=== PATIENT | female | born 1950 | race Caucasian/White ===

== ENCOUNTER 2021-10-28 14:02 | Outpatient (REF) | payer OTHER, SELFPAY ==
[2021-10-28 14:57] LABS: Ammonia 18 umol/L (13-55)
[2021-10-28 16:09] LABS: Hematocrit 36.3 % (37.0-47.0); Hemoglobin 11.4 g/dl (12.0-16.0); Mean Corpuscular HGB Conc 31.4 g/dl (31.0-35.0); Mean Corpuscular Hemoglobin 25.2 pg (27.0-33.0); Mean Corpuscular Volume 80.3 fL (80.0-98.0); Mean Platelet Volume 11.5 fL (9.4-12.3); PLT CLUMP 1; Red Blood Count 4.52 X10*6/uL (4.20-5.50); Red Cell Distribution Width 14.5 % (11.0-16.0)
[2021-10-28 16:11] LABS: Platelet Count 109 X10*3/uL (160-400); White Blood Count 4.5 X10*3/uL (4.8-10.8)
[2021-10-28 16:24] LABS: Iron 46 mcg/dL (30-160)
[2021-10-28 16:25] LABS: C Reactive Protein 0.04 mg/dL (< or = 0.50)
[2021-10-28 16:40] LABS: Percent Iron Saturation 8 % (15-50); Total Iron Binding Capacity 575 mcg/dL (228-428); Unsaturated Iron Binding 529 ug/dL
[2021-10-28 16:43] LABS: Ferritin 19 ng/mL (10-250)
[2021-10-28 16:52] LABS: Folate 18.7 ng/mL (> or = 4.0)
[2021-10-29 07:13] LABS: HBS Num1 4.68 mIU/mL (0-7.99); HBsAGNum1 0.25 S/CO (0.00-0.99); HIV AB/AG Nonreactive (Nonreactive); HIV Num 1 0.11 S/CO (0.00-0.99); Hepatitis B Surface Antigen Negative (Negative); ~Hepatitis B Surface Antibody NONREACTIVE (Nonreactive)
[2021-10-29 08:57] LABS: HBc Num2 7.37 S/CO; HBc Num3 6.99 S/CO; Hepatitis B Core Antibody Reactive (Nonreactive)
[2021-10-29 19:10] LABS: HCV RNA PCR Qn 2240000 IU/mL (NOT DETECTED); HCV RNA PCR Qn 6.35 Log IU/mL (NOT DETECTED)
[2021-10-30 14:31] LABS: Alpha 1 Anti-trypsin 191 mg/dL (83-199)
[2021-10-31 01:21] LABS: Hepatitis B Core Antibody IgM NON-REACTIVE (NON-REACTIVE)
[2021-11-03 00:47] LABS: FIB-ALT 84 U/L (6-29); FIB-Alpha-2-Macroglobulin 415 mg/dL (106-279); FIB-Apolipoprotein A1 172 mg/dL (101-198); FIB-GGT 76 U/L (3-65); FIB-Haptoglobin <8 mg/dL (43-212); FIB-Total Bilirubin 0.6 mg/dL (0.2-1.2); Liver Fibrosis Score 0.91; Liver Fibrosis Stage F4; Nec Inflam Act Grade A3; Nec Inflam Act Score 0.71
[2021-11-03 13:55] LABS: Alpha Fetoprotein 18.1 ng/mL
== END 2021-10-28 14:03 | disposition home or self-care (01) ==
LOC: HO.LAB 14:02
PROVIDERS: PCP Internal Medicine; Visit Provider Internal Medicine Gastroenterology
DX: B18.2 Chronic viral hepatitis C (principal); K74.60 Unspecified cirrhosis of liver; Z79.899 Other long term (current) drug therapy
CPT/HCPCS: 36415; 81596; 82103; 82105; 82140; 82728; 82746; 83540; 85027; 86140; 86704; 86705; 86706; 87340; 87389; 87522; 87902; 99212

== ENCOUNTER → 2021-12-09 13:37 | Outpatient (BNVA) | payer OTHER, SELFPAY | PROVIDERS: PCP Internal Medicine; Visit Provider Internal Medicine Gastroenterology | DX: B18.2 Chronic viral hepatitis C (principal); K74.60 Unspecified cirrhosis of liver | CPT/HCPCS: 99212 ==

== ENCOUNTER 2022-01-19 08:46 | Outpatient (REF) | payer OTHER, SELFPAY ==
--- NOTE | ~2022-01-19 | US_ITS ---
EXAMINATION: US ABDOMEN COMPLETE CLINICAL INFORMATION: Chronic viral hepatitis. COMPARISON: None TECHNIQUE: Real-time imaging of the abdominal viscera. FINDINGS: PANCREAS: The pancreas is prominent and echogenic. The peripancreatic fat borders are maintained. There is peripancreatic/aortic lymph node measuring 2.1 x 0.9 x 2.3 cm. ABDOMINAL AORTA: The proximal, mid, and distal segments are normal in caliber. INFERIOR VENA CAVA: Visualized portions are normal. LIVER: The liver is enlarged in size measuring 17.1 cm. The liver contour is lobulated and scalloped. There is increased parenchymal echogenicity with coarse echotexture. There is a focal hyperechoic area in the left hepatic lobe measuring 0.34 x 0.3 x 0.3 cm. Normal hepatopedal flow seen in the middle portal vein on Doppler exam. GALLBLADDER: There is moderate focal wall thickening measuring 0.85 cm The gallbladder is physiologically distended without evidence of stones, sludge, polyps or pericholecystic fluid. COMMON BILE DUCT: Normal in caliber measuring 0.50 cm in diameter. RIGHT KIDNEY: Normal. No hydronephrosis. No renal calculi or focal parenchymal lesions. The kidney measures 9.3 cm in maximum dimension. LEFT KIDNEY: Normal. No hydronephrosis. No renal calculi or focal parenchymal lesions. The kidney measures 10.9 cm in maximum dimension. SPLEEN: The spleen measures 13.1 cm in maximum dimension. There is echogenic appearing splenule with trace surrounding free fluid measuring 1.6 x 1.3 x 2.0 cm. FREE FLUID: Free fluid surrounding spleen. US/US abdomen complete IMPRESSION: Cirrhotic appearing liver with a hyperechoic lesion left hepatic lobe likely hemangioma versus focal fatty infiltration. Prominent middle portal vein but no thrombus seen. Enlarged spleen with a probable small splenule and trace free fluid surrounding the spleen. No gallstones but moderate focal wall thickening seen measuring 0.85 cm.
== END 2022-01-19 08:47 | disposition home or self-care (01) ==
LOC: HO.HMGCX 08:46
PROVIDERS: PCP Internal Medicine; Visit Provider Internal Medicine Gastroenterology
DX: K74.60 Unspecified cirrhosis of liver (principal); B18.2 Chronic viral hepatitis C
CPT/HCPCS: 76700

== ENCOUNTER 2022-01-21 08:28 | Outpatient (REF) | payer OTHER, SELFPAY ==
[2022-01-21 08:48] LABS: MANUAL DIFF FLAG NO
[2022-01-21 08:56] LABS: Ammonia 32 umol/L (13-55)
[2022-01-21 09:13] LABS: Basophils Percent Auto 0.6 % (0-2); Eosinophils Absolute Auto 0.3 X10*3/uL (0.0-0.4); Eosinophils Percent Auto 5.4 % (0-4); Hemoglobin 8.3 g/dl (12.0-16.0); Imm Gran Abs Auto 0.01 X10*3/uL (0.00-0.03); Imm Gran Pct Auto 0.2 % (0.0-0.4); Lymphocytes Absolute Auto 1.3 X10*3/uL (1.2-4.9); Lymphocytes Percent Auto 24.2 % (20-40); Mean Corpuscular HGB Conc 29.6 g/dl (31.0-35.0); Mean Corpuscular Hemoglobin 21.3 pg (27.0-33.0); Mean Corpuscular Volume 71.8 fL (80.0-98.0); Mean Platelet Volume 10.6 fL (9.4-12.3); Monocytes Absolute Auto 0.6 X10*3/uL (0.1-1.2); Monocytes Percent Auto 11.6 % (2-11); Neutrophils Absolute Auto 3.1 x10*3/uL (2.0-8.3); Platelet Count 144 X10*3/uL (160-400); Red Cell Distribution Width 16.3 % (11.0-16.0); White Blood Count 5.3 X10*3/uL (4.8-10.8)
[2022-01-21 09:26] LABS: INTERNATIONAL NORM RATIO 1.1 (0.9-1.1); Prothrombin Time 12.4 SEC (10.0-13.1)
[2022-01-21 09:46] LABS: Alanine Aminotransferase 65 U/L (0-31); Albumin Level 3.7 g/dL (3.5-5.0); Alkaline Phosphatase 67 U/L (39-117); Aspartate Amino Transferase 49 U/L (5-31); Bilirubin Direct 0.3 mg/dL (0.0-0.5); Bilirubin Total 0.5 mg/dL (0.0-1.0); Total Protein 7.4 g/dL (6.5-8.0)
[2022-01-21 10:09] LABS: Ferritin 9 ng/mL (10-250)
[2022-01-25 19:08] LABS: Hepatitis B Viral DNA Qn - cp <1.00 NOT DETECTED Log IU/mL (NOT DETECTED); Hepatitis B Viral DNA Qn-IU/mL <10 NOT DETECTED IU/mL (NOT DETECTED)
== END 2022-01-21 08:29 | disposition home or self-care (01) ==
LOC: HO.LAB 08:28
PROVIDERS: PCP Internal Medicine; Visit Provider Internal Medicine Gastroenterology
DX: K74.60 Unspecified cirrhosis of liver (principal); B18.2 Chronic viral hepatitis C
CPT/HCPCS: 36415; 80076; 82140; 82728; 85025; 85610; 87517; 99212

== ENCOUNTER → 2022-05-19 10:09 | Outpatient (BNVA) | payer OTHER, SELFPAY | PROVIDERS: PCP Internal Medicine; Visit Provider Internal Medicine Gastroenterology | DX: K74.60 Unspecified cirrhosis of liver (principal); B18.2 Chronic viral hepatitis C; D50.9 Iron deficiency anemia, unspecified | CPT/HCPCS: 99212 ==

== ENCOUNTER 2022-06-09 11:36 | Day surgery (SDC) | payer OTHER, SELFPAY ==
[2022-06-07 14:21] VITALS: BMI 30.7
[2022-06-09 11:54] VITALS: BP 170/84; PULSE 89; RESP 16; TEMP 36.8; O2SAT 99; BMI 30.2
--- NOTE | 2022-06-09 12:19 | P.CONAN_ITS ---
[facility] Active Problems Active Problems: All Active Problems (Updated 06/07/22 @ 14:19 by Isadora Anaya RN) Hepatitis C, chronic (Acute) Hypertension (Acute) Anxiety disorder (Acute) Hepatic cirrhosis due to chronic hepatitis C infection (Acute) Iron deficiency anemia (Acute) Past Medical History Medical History Anemia Anxiety Hepatitis C HTN (hypertension) Liver cirrhosis Family History Family History Father Diabetes Paternal Grandmother Diabetes Mother Alzheimer disease Surgical History Surgical History History of esophagogastroduodenoscopy (EGD) Hx of cataract surgery Hx of colonoscopy History of Problems with Anesthesia: No Social History Social History Household Members: None Alcohol intake: never Patient Tobacco Use Status: Current everyday Tobacco user Tobacco use type: Cigarette Cigarettes Per Day: 3 Advance Directives: No Advance Directives Information Provided: Yes Meds Allergies Allergy/AdvReac Type Severity Reaction Status Date / Time No Known Allergies Allergy Verified 05/19/22 10:18 Home Medications Medication Instructions Recorded Confirmed Last Taken Type folic acid 1 mg tablet 1 mg PO DAILY 10/28/21 06/07/22 Unknown History pantoprazole 40 mg tablet,delayed 40 mg PO DAILY 10/28/21 06/07/22 Unknown History release (Protonix) carvedilol 3.125 mg tablet 3.125 mg PO BID 12/09/21 06/07/22 Unknown History lisinopril 20 mg tablet 20 mg PO DAILY 12/09/21 05/19/22 Unknown History Exam Exam Date and Time: June 09, 2022 1219 Height,Weight and Vital Signs: Height 5 ft 2 in Weight 74.843 kg Last Vital Signs Temp 98.2 F 06/09/22 11:54 Pulse 89 06/09/22 11:54 Resp 16 06/09/22 11:54 BP 170/84 H 06/09/22 11:54 Pulse Ox 99 06/09/22 11:54 O2 Del Method 06/09/22 11:54 Airway Mallampati Class: III (Edentulous) TM Dist: >3cm Denture: Upper Partial: Lower Loose/Missing/Broken Teeth: Yes, Upper and Lower Heart: RRR Lungs: CTA Assessment and Plan Assessment Anesthesia Assessment: Anesthesia Plan Discussed and Chart Reviewed Final Anesthetic Review History of Problems with Anesthesia: No NPO: Yes ASA Class: III Final Preanesthetic Review: Meds/Allgs Chart Reviewed, Consent Obtained/Reviewed and Anes Risks/Benef Reviewed Patient Risk: Intermediate Procedure Risk: Intermediate Anesthetic Plan Anesthetic Plan: MAC: Disposition: Standard PACU
--- NOTE | 2022-06-09 12:38 | P.HPSUR_ITS ---
Pre-Procedural Eval Section A Date of Service: 06/09/22 Section B Chief Complaint: Iron deficiency anemia, unspecified Relevant Family History (Specify if Yes): No Relevant Social History: None Present Medications: see Short Stay Collaborative assessment Medical History: Significant History (chronic hepatitis C infection, Hypertension, anxiety disorder, PVD, history of stomach ulcers) History of Previous Operations: Relevant previous surgery/procedure and date(s) (cataracts and colonosocopy) Allergies: Allergies Allergy/AdvReac Type Severity Reaction Status Date / Time No Known Allergies Allergy Verified 05/19/22 10:18 Review of Systems Sugical H&P ROS: Negative: Constitution, Cardiovascular, Respiratory, Neurological, Psychiatric, Hem-Onc, Allergic/Immunologic, Gastrointestinal, Genitourinary, Musculoskeletal, Integumentary, Endocrine and Eyes/Ea rs/Nose/Throat Exam Surgical H&P Exam: Normal: HEENT, Normal: Heart, Normal: Lungs, Normal: Extremities, Normal: Abdomen, Normal: Skin and Normal: Neurological Plan Diagnosis/Plan: Unchanged I have reviewed the history and physical and performed a pertinent physical examination on my patient. No changes have occurred unless specified. Time Spent With Patient Time: Total time managing care of this patient today ____ minutes.
--- NOTE | 2022-06-09 13:26 | W.PM.OPN ---
Operative Note Operative Note Date of Service: 06/09/22 Narrative: Procedure Description: EGD Indication: anemia, cirrhosis Anesthesia: MAC FLEXIBLE TRANSORAL UPPER GASTROINTESTINAL ENDOSCOPY UPPER ENDOSCOPY Consent: Indications for the procedure and potential complications of bleeding, perforation, reaction to medications and missed diagnosis were discussed with the patient and informed consent was obtained. Instrument: Olympus GIF H 190 J mid size upper endoscope Monitoring: Vital signs and clinical assessment, continuous EKG monitoring, Pulse oximetry, Carbon Dioxide monitoring and blood pressure monitoring were done throughout the procedure. Procedure: The patient was placed in the left lateral decubitis position and pre-procedure medications were administered and a bite block was placed. The endoscope was inserted into the mouth and advanced under direct vision to the third part of duodenum. A careful inspection was made as the upper endoscope was withdrawn including a retroflexed examination of the proximal stomach; Findings and interventions are described below. Findings: Larynx:normal Esophagus: GE junction at 38 cm, diaphragm hiatus at 40 cm, with 2 cm sliding hiatal hernia. X1 variceal cord noted grade II with few red gaines, and another cord noted grade I. X3 bands were placed and then hemospray applied thereafter. Stomach: Patchy gastric erythema with erosions in the antrum. Biopsies were obtained. Grade 2 flap valve on retroflexed examination of the cardia. 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 Duodenum: Normal bulb and descending duodenum, bx taken Intervention: Biopsies as noted above, band ligation and hemospray Impression/Findings: hiatal hernia varices gastritis and erosions PLAN: cont with pantoprazole 2 weeks of carafate cont with carvedilol repeat EGD in 4-6 weeks with myself or Dr Marks soft diet today and advance tomorrow
[2022-06-09 13:33] VITALS: BP 94/55; PULSE 86; RESP 20; TEMP 37.1; O2SAT 100
[2022-06-09 13:48] VITALS: BP 94/55; PULSE 88; RESP 18; TEMP 36.8; O2SAT 97
[2022-06-09 14:03] VITALS: BP 139/68; PULSE 84; RESP 16; TEMP 36.4; O2SAT 98
== END 2022-06-09 15:03 | disposition home or self-care (01) ==
PROVIDERS: PCP Internal Medicine; Visit Provider Internal Medicine Gastroenterology
PROC: 0DJ08ZZ Inspection of Upper Intestinal Tract, Via Natural or Artificial Opening Endoscopic (ICD-10-PCS; CPT 43235; principal; 2022-06-09 13:10)
DX: D50.9 Iron deficiency anemia, unspecified (principal); K74.60 Unspecified cirrhosis of liver; B18.2 Chronic viral hepatitis C; K76.6 Portal hypertension; K31.89 Other diseases of stomach and duodenum; I85.00 Esophageal varices without bleeding; K44.9 Diaphragmatic hernia without obstruction or gangrene; K29.50 Unspecified chronic gastritis without bleeding; I10 Essential (primary) hypertension; I73.9 Peripheral vascular disease, unspecified; F41.1 Generalized anxiety disorder; Z79.899 Other long term (current) drug therapy; F17.210 Nicotine dependence, cigarettes, uncomplicated
CPT/HCPCS: 43244; 43239; 88305; 88342

== ENCOUNTER 2022-07-01 09:06 | Outpatient (REF) | payer OTHER, SELFPAY ==
[2022-07-01 10:45] LABS: MANUAL DIFF FLAG NO
[2022-07-01 11:16] LABS: Basophils Absolute Auto 0.1 X10*3/uL (0.0-0.2); Basophils Percent Auto 0.9 % (0-2); Eosinophils Absolute Auto 0.1 X10*3/uL (0.0-0.4); Eosinophils Percent Auto 2.1 % (0-4); Imm Gran Abs Auto 0.02 X10*3/uL (0.00-0.03); Imm Gran Pct Auto 0.3 % (0.0-0.4); Lymphocytes Absolute Auto 1.4 X10*3/uL (1.2-4.9); Mean Corpuscular HGB Conc 26.8 g/dl (31.0-35.0); Mean Corpuscular Hemoglobin 16.5 pg (27.0-33.0); Monocytes Absolute Auto 0.7 X10*3/uL (0.1-1.2); Monocytes Percent Auto 10.6 % (2-11); Neutrophils Absolute Auto 4.2 x10*3/uL (2.0-8.3); Neutrophils Percent Auto 64.1 % (45-73); Platelet Count 166 X10*3/uL (160-400); Red Blood Count 4.06 X10*6/uL (4.20-5.50); Red Cell Distribution Width 19.2 % (11.0-16.0); White Blood Count 6.5 X10*3/uL (4.8-10.8)
[2022-07-01 11:18] LABS: INTERNATIONAL NORM RATIO 1.1 (0.9-1.1); Prothrombin Time 12.8 SEC (10.0-13.1)
[2022-07-01 11:26] LABS: Hemoglobin 6.7 g/dl (12.0-16.0); Mean Corpuscular Volume 61.6 fL (80.0-98.0)
[2022-07-01 12:06] LABS: Alanine Aminotransferase 19 U/L (0-31); Albumin Level 3.7 g/dL (3.5-5.0); Alkaline Phosphatase 77 U/L (39-117); Aspartate Amino Transferase 22 U/L (5-31); Bilirubin Direct 0.5 mg/dL (0.0-0.5); Bilirubin Total 1.2 mg/dL (0.0-1.0); Total Protein 7.5 g/dL (6.5-8.0)
[2022-07-01 12:09] LABS: Ferritin 8 ng/mL (10-250); Vitamin D 25-OH Total 28.2 ng/mL (>30)
[2022-07-04 09:43] LABS: HCV Log PCR 1.26 Log IU/mL (NOT DETECTED); HepC Viral Load 18 IU/mL (NOT DETECTED)
== END 2022-07-01 09:07 | disposition home or self-care (01) ==
LOC: HO.LAB 09:06
PROVIDERS: PCP Internal Medicine; Visit Provider Internal Medicine Gastroenterology
DX: B18.2 Chronic viral hepatitis C (principal); K74.60 Unspecified cirrhosis of liver; D50.9 Iron deficiency anemia, unspecified
CPT/HCPCS: 36415; 80076; 82306; 82728; 85025; 85610; 87522; 99212

== ENCOUNTER 2022-07-04 13:31 | Emergency (ER) | payer OTHER, SELFPAY ==
[2022-07-04] VITALS (10 sets, daily range): BP systolic 135–175; BP diastolic 59–80; PULSE 87–111; RESP 16–20; TEMP 36.6–36.9; O2SAT 99–100; BMI 30.2
--- NOTE | 2022-07-04 13:34 | ED_ITS ---
HPI - General Adult General Chief complaint: Recheck/Abnormal Lab/Rx <SNOW Lopez - Last Filed: 07/04/22 13:37> Stated complaint: low on blood <SNOW Lopez - Last Filed: 07/04/22 13:37> Time Seen by Provider: 07/04/22 13:39 <SNOW Lopez - Last Filed: 07/04/22 13:37> Source: patient <Lilly Mims MD - Last Filed: 07/04/22 22:26> Mode of arrival: ambulatory <Lilly Mims MD - Last Filed: 07/04/22 22:26> Limitations: no limitations <Lilly Mims MD - Last Filed: 07/04/22 22:26> History of Present Illness HPI narrative: Patient comes to the emergency room stating that Dr. Marks from Gastroenterology did some lab work 3 days ago, patient's hemoglobin was 6.7. Patient states that she has history of hepatitis C, gastric ulcers, patient has been having black stools intermittently for a month. Patient complaining of ge neralized fatigue, weakness. Patient states that she has had blood transfusions in the past. Patient denies any abdominal pain, no active rectal bleeding. Also, denies chest pain, shortness of breath, URI or UTI symptoms at this time. <Lilly Mims MD - Last Filed: 07/04/22 22:26> Related Data Home medications: Home Medications Medication Instructions Recorded Confirmed pantoprazole 40 mg tablet,delayed 40 mg PO DAILY 10/28/21 07/01/22 release (Protonix) carvedilol 3.125 mg tablet 3.125 mg PO BID 12/09/21 07/01/22 lisinopril 20 mg tablet 20 mg PO DAILY 12/09/21 07/01/22 Previous Rx's Medication Instructions Recorded glecaprevir 100 mg-pibrentasvir 40 3 tab PO DAILY 4 weeks #84 tabs 05/10/22 mg tablet (Mavyret) sucralfate 100 mg/mL oral 10 ml PO BID #400 mL 06/09/22 suspension (Carafate) folic acid 1 mg tablet 1 mg PO DAILY 60 days #60 tabs 06/16/22 ferrous sulfate 325 mg (65 mg 325 mg PO BID 90 days #180 tabs 07/01/22 iron) tablet <SNOW Lopez - Last Filed: 07/04/22 13:37> Allergies/adverse reactions: Allergies Allergy/AdvReac Type Severity Reaction Status Date / Time No Known Allergies Allergy Verified 07/04/22 13:34 <SNOW Lopez - Last Filed: 07/04/22 13:37> Review of Systems Review of Systems: Constitutional : No Weight loss, No Fever, No Chills, No Night Sweats, complaining of fatigue ENT/Mouth : No Hearing loss, No Ear Pain, No Nasal Congestion, No Sinus Pain, No Hoarseness, No sore throat, No Rhinorrhea, No Swallowing Difficulty Eyes: No Eye Pain, No Swelling, No Redness, No Foreign Body, No Discharge, No Vision Changes Cardiovascular : No Chest Pain, No SOB, No Dyspnea on Exertion, No Orthopnea, No Edema, No Palpitations Respiratory : No Cough, No Sputum, No Wheezing, No Smoke Exposure, No Dyspnea Gastrointestinal : No Nausea, No Vomiting, No Diarrhea, No Constipation, No abdominal Pain, complaining of dark stools for a month Genitourinary : no irregular bleeding, No Dysuria, No Urinary Frequency, No Hematuria, No Urinary Incontinence, No Urgency, No Flank Pain, No Urinary Flow Changes, No Hesitancy Musculoskeletal : No joint pain, No Myalgias, No Joint Swelling Skin : No Skin Lesions, No rash Neuro : No Weakness, No Numbness, No Paresthesias, No Loss of Consciousness, No Dizziness, No Headache Psych : No Anxiety/Panic, No Depression, No SI/HI/AH/VH, No Social Issues, Heme/Lymph: No Bruising, No Bleeding,No Lymphadenopathy Endocrine : No Polyuria, No Polydipsia, No Temperature Intolerance <Lilly Mims MD - Last Filed: 07/04/22 22:26> [facility] Past Medical History Medical History: Medical History Anemia Anxiety Hepatitis C HTN (hypertension) Liver cirrhosis <SNOW Lopez - Last Filed: 07/04/22 13:37> Surgical History: Surgical History History of esophagogastroduodenoscopy (EGD) Hx of cataract surgery Hx of colonoscopy <SNOW Lopez - Last Filed: 07/04/22 13:37> Family History Family History: Family History Father Diabetes Paternal Grandmother Diabetes Mother Alzheimer disease <SNOW Lopez - Last Filed: 07/04/22 13:37> Social History Social History: Social History Household Members: None Alcohol intake: never Patient Tobacco Use Status: Current everyday Tobacco user Tobacco use type: Cigarette Cigarettes Per Day: 3 <SNOW Lopez - Last Filed: 07/04/22 13:37> Physical Exam ED Vital Signs: Vital Signs - 24 hr 07/04/22 13:34 07/04/22 14:50 07/04/22 15:08 Temperature 98 F 98.4 F 98.4 F Pulse Rate 111 H 103 H 90 Respiratory Rate 17 18 18 Blood Pressure 166/73 H 144/61 H 153/72 H Pulse Oximetry 100 99 Oxygen Delivery Method Room Air Room Air 07/04/22 15:27 07/04/22 16:20 07/04/22 16:37 Temperature 98.1 F 98.4 F 98.0 F Pulse Rate 92 87 88 Respiratory Rate 18 18 18 Blood Pressure 140/73 H 142/61 H 135/59 L Pulse Oximetry Oxygen Delivery Method 07/04/22 16:55 07/04/22 16:00 07/04/22 18:20 Temperature 98.1 F 98.3 F 98.5 F Pulse Rate 87 87 93 Respiratory Rate 18 16 18 Blood Pressure 149/67 H 155/78 H 175/80 H Pulse Oximetry 99 Oxygen Delivery Method Room Air 07/04/22 19:49 Temperature Pulse Rate 96 Respiratory Rate 20 Blood Pressure 157/70 H Pulse Oximetry 99 Oxygen Delivery Method Room Air BMI result Body Mass Index 30.2 <SNOW Lopez - Last Filed: 07/04/22 13:37> Vital Signs - 24 hr 07/04/22 13:34 07/04/22 14:50 07/04/22 15:08 Temperature 98 F 98.4 F 98.4 F Pulse Rate 111 H 103 H 90 Respiratory Rate 17 18 18 Blood Pressure 166/73 H 144/61 H 153/72 H Pulse Oximetry 100 99 Oxygen Delivery Method Room Air Room Air 07/04/22 15:27 07/04/22 16:20 07/04/22 16:37 Temperature 98.1 F 98.4 F 98.0 F Pulse Rate 92 87 88 Respiratory Rate 18 18 18 Blood Pressure 140/73 H 142/61 H 135/59 L Pulse Oximetry Oxygen Delivery Method 07/04/22 16:55 07/04/22 16:00 07/04/22 18:20 Temperature 98.1 F 98.3 F 98.5 F Pulse Rate 87 87 93 Respiratory Rate 18 16 18 Blood Pressure 149/67 H 155/78 H 175/80 H Pulse Oximetry 99 Oxygen Delivery Method Room Air 07/04/22 19:49 Temperature Pulse Rate 96 Respiratory Rate 20 Blood Pressure 157/70 H Pulse Oximetry 99 Oxygen Delivery Method Room Air BMI result Body Mass Index 30.2 <Lilly Mims MD - Last Filed: 07/04/22 22:26> Const Other: Appearance: Alert. Oriented X3. No acute distress. Eyes: Pupils equal, round and reactive to light. ENT: Pharynx normal. Neck: Normal inspection. Neck supple. No lymph nodes noted. No crepitus CVS: Normal heart rate and rhythm. Pulses normal. Normal S1 and S2 Respiratory: No respiratory distress. Breath sounds normal. No Wheezing. No rales Abdomen: Soft and nontender. No rigidity. No distention. Skin: Skin warm and dry. Diffusely pale. Normal skin turgor. Extremities: No lower extremity edema. No Lacerations. No Rash Neuro: Oriented X 3. No motor deficit. No sensory deficit. Moving all extremities. No slurred speech. CN 2 through 12 grossly intact Psych: calm, cooperative, normal affect <Lilly Mims MD - Last Filed: 06/16 22:26> Course Course Course Narrative: This is an RME: Additional HPI, ROS, PE not included below will be deferred to primary provider. 72 year old female hx of htn, anemia, cirrhosis secondary to hep c, anxiety presents w/ low on blood , recently had lab work done by Dr. Marks per patient. Was told she had abnormal labs. Complaints of myalgias, shortness of breath, weakness. Physical exam patient appears pale. Saturating 99% on room air and is tachycardic in the 1002-120s Plan- labs, type and screen, obs, PRBC X2 ordered. <SNOW Lopez - Last Filed: 07/04/22 13:37> Medications Administered Discontinued Medications Generic Name Dose Route Start Last Admin Trade Name Freq PRN Reason Stop Dose Admin Pantoprazole Sodium 80 mg 07/04/22 15:09 07/04/22 16:21 Pantoprazole Sodium 40 Mg/10 Ml Vial IVPUSH 07/04/22 15:10 80 mg ONCE ONE Administration <SNOW Lopez - Last Filed: 07/04/22 13:37> Medications Administered Discontinued Medications Generic Name Dose Route Start Last Admin Trade Name Freq PRN Reason Stop Dose Admin Pantoprazole Sodium 80 mg 07/04/22 15:09 07/04/22 16:21 Pantoprazole Sodium 40 Mg/10 Ml Vial IVPUSH 07/04/22 15:10 80 mg ONCE ONE Administration <Lilly Mims MD - Last Filed: 07/04/22 22:26> Medical Decision Making Medical Decision Making MDM Narrative: -patient is receiving 2 units of blood, patient does have an occult GI bleed -I discussed the patient with Dr Biggs , pt getting transfused at this time. Reviewing Dr. Marks's the patient notes from Gastroenterology, patient has an outpatient endoscopy pending. At this time, no need for hospitalization -plan: Patient will be transfused, recheck H&H, and likely to be discharged home if patient remains stable. Patient is not actively bleeding. -patient received 2 units of blood, hemoglobin improved from 6.9-9.0 and hematocrit improved from 26.3-31.7. Patient states that she feels much better and is ready to be discharged. -patient already has follow-up scheduled with Gastroenterology for endoscopies <Lilly Mims MD - Last Filed: 07/04/22 22:26> Differential Diagnosis Differential Diagnoses: The differential diagnosis associated with the presentation includes (Upper GI bleed, lower GI bleed, iron deficiency anemia) <Lilly Mims MD - Last Filed: 07/04/22 22:26> Consult Healthcare Provider Management of the patient was discussed with: Hospitalist <Lilly Mims MD - Last Filed: 07/04/22 22:26> Lab Data [facility] Lab Attestation statement: I reviewed the patient's lab results. <Lilly Mims MD - Last Filed: 07/04/22 22:26> Result Diagrams: 07/04/22 13:43 07/04/22 13:43 <SNOW Lopez - Last Filed: 07/04/22 13:37> Labs: Lab Results 07/04/22 07/04/22 07/04/22 Range/Units 13:43 13:43 13:43 WBC 6.0 (4.8-10.8) X10*3/uL RBC 4.19 L (4.20-5.50) X10*6/uL Hgb 6.9 L* (12.0-16.0) g/dl Hct 26.3 L (37.0-47.0) % MCV 62.8 L (80.0-98.0) fL MCH 16.5 L (27.0-33.0) pg MCHC 26.2 L (31.0-35.0) g/dl RDW 19.2 H (11.0-16.0) % Plt Count 164 (160-400) X10*3/uL MPV Not Reportable Immature Gran % (Auto) 0.2 (0.0-0.4) % Neut % (Auto) 67.8 (45-73) % Lymph % (Auto) 19.0 L (20-40) % Marshall % (Auto) 10.4 (2-11) % Eos % (Auto) 1.8 (0-4) % Baso % (Auto) 0.8 (0-2) % Lymph # (Auto) 1.1 L (1.2-4.9) X10*3/uL Marshall # (Auto) 0.6 (0.1-1.2) X10*3/uL Eos # (Auto) 0.1 (0.0-0.4) X10*3/uL Baso # (Auto) 0.1 (0.0-0.2) X10*3/uL Abs Immat Gran (auto) 0.01 (0.00-0.03) X10*3/uL Absolute Neuts (auto) 4.0 (2.0-8.3) x10*3/uL Absolute Nucleated RBC 0.000 (0.0-0.012) X10*3/uL Nucleated RBC % (auto) 0.0 (0.0-0.2) /100WBC Sodium 141 (135-145) mmol/L Potassium 4.3 (3.3-5.1) mmol/L Chloride 107 (96-108) mmol/L Carbon Dioxide 23 (22-29) mmol/L Anion Gap 15 (12-20) BUN 22 H (9-16) mg/dL Creatinine 1.26 (0.5-1.4) mg/dL Estim Creat Clear Calc 38.8 Estimated GFR 42 Random Glucose 140 H (60-115) mg/dL Calcium 9.1 (8.4-10.2) mg/dL Total Bilirubin 1.5 H (0.0-1.0) mg/dL AST 22 (5-31) U/L ALT 18 (0-31) U/L Alkaline Phosphatase 82 (39-117) U/L Total Protein 7.7 (6.5-8.0) g/dL Albumin 3.8 (3.5-5.0) g/dL Stool Occult Blood (NEGATIVE) Blood Type A Negative Antibody Screen NEGATIVE Crossmatch See Detail 07/04/22 07/04/22 Range/Units 14:47 19:44 WBC (4.8-10.8) X10*3/uL RBC (4.20-5.50) X10*6/uL Hgb 9.0 L D (12.0-16.0) g/dl Hct 31.7 L D (37.0-47.0) % MCV (80.0-98.0) fL MCH (27.0-33.0) pg MCHC (31.0-35.0) g/dl RDW (11.0-16.0) % Plt Count (160-400) X10*3/uL MPV Immature Gran % (Auto) (0.0-0.4) % Neut % (Auto) (45-73) % Lymph % (Auto) (20-40) % Marshall % (Auto) (2-11) % Eos % (Auto) (0-4) % Baso % (Auto) (0-2) % Lymph # (Auto) (1.2-4.9) X10*3/uL Marshall # (Auto) (0.1-1.2) X10*3/uL Eos # (Auto) (0.0-0.4) X10*3/uL Baso # (Auto) (0.0-0.2) X10*3/uL Abs Immat Gran (auto) (0.00-0.03) X10*3/uL Absolute Neuts (auto) (2.0-8.3) x10*3/uL Absolute Nucleated RBC (0.0-0.012) X10*3/uL Nucleated RBC % (auto) (0.0-0.2) /100WBC Sodium (135-145) mmol/L Potassium (3.3-5.1) mmol/L Chloride (96-108) mmol/L Carbon Dioxide (22-29) mmol/L Anion Gap (12-20) BUN (9-16) mg/dL Creatinine (0.5-1.4) mg/dL Estim Creat Clear Calc Estimated GFR Random Glucose (60-115) mg/dL Calcium (8.4-10.2) mg/dL Total Bilirubin (0.0-1.0) mg/dL AST (5-31) U/L ALT (0-31) U/L Alkaline Phosphatase (39-117) U/L Total Protein (6.5-8.0) g/dL Albumin (3.5-5.0) g/dL Stool Occult Blood POSITIVE (NEGATIVE) Blood Type Antibody Screen Crossmatch <SNOW Lopez - Last Filed: 07/04/22 13:37> Lab Results 07/04/22 07/04/22 07/04/22 Range/Units 13:43 13:43 13:43 WBC 6.0 (4.8-10.8) X10*3/uL RBC 4.19 L (4.20-5.50) X10*6/uL Hgb 6.9 L* (12.0-16.0) g/dl Hct 26.3 L (37.0-47.0) % MCV 62.8 L (80.0-98.0) fL MCH 16.5 L (27.0-33.0) pg MCHC 26.2 L (31.0-35.0) g/dl RDW 19.2 H (11.0-16.0) % Plt Count 164 (160-400) X10*3/uL MPV Not Reportable Immature Gran % (Auto) 0.2 (0.0-0.4) % Neut % (Auto) 67.8 (45-73) % Lymph % (Auto) 19.0 L (20-40) % Marshall % (Auto) 10.4 (2-11) % Eos % (Auto) 1.8 (0-4) % Baso % (Auto) 0.8 (0-2) % Lymph # (Auto) 1.1 L (1.2-4.9) X10*3/uL Marshall # (Auto) 0.6 (0.1-1.2) X10*3/uL Eos # (Auto) 0.1 (0.0-0.4) X10*3/uL Baso # (Auto) 0.1 (0.0-0.2) X10*3/uL Abs Immat Gran (auto) 0.01 (0.00-0.03) X10*3/uL Absolute Neuts (auto) 4.0 (2.0-8.3) x10*3/uL Absolute Nucleated RBC 0.000 (0.0-0.012) X10*3/uL Nucleated RBC % (auto) 0.0 (0.0-0.2) /100WBC Sodium 141 (135-145) mmol/L Potassium 4.3 (3.3-5.1) mmol/L Chloride 107 (96-108) mmol/L Carbon Dioxide 23 (22-29) mmol/L Anion Gap 15 (12-20) BUN 22 H (9-16) mg/dL Creatinine 1.26 (0.5-1.4) mg/dL Estim Creat Clear Calc 38.8 Estimated GFR 42 Random Glucose 140 H (60-115) mg/dL Calcium 9.1 (8.4-10.2) mg/dL Total Bilirubin 1.5 H (0.0-1.0) mg/dL AST 22 (5-31) U/L ALT 18 (0-31) U/L Alkaline Phosphatase 82 (39-117) U/L Total Protein 7.7 (6.5-8.0) g/dL Albumin 3.8 (3.5-5.0) g/dL Stool Occult Blood (NEGATIVE) Blood Type A Negative Antibody Screen NEGATIVE Crossmatch See Detail 07/04/22 07/04/22 Range/Units 14:47 19:44 WBC (4.8-10.8) X10*3/uL RBC (4.20-5.50) X10*6/uL Hgb 9.0 L D (12.0-16.0) g/dl Hct 31.7 L D (37.0-47.0) % MCV (80.0-98.0) fL MCH (27.0-33.0) pg MCHC (31.0-35.0) g/dl RDW (11.0-16.0) % Plt Count (160-400) X10*3/uL MPV Immature Gran % (Auto) (0.0-0.4) % Neut % (Auto) (45-73) % Lymph % (Auto) (20-40) % Marshall % (Auto) (2-11) % Eos % (Auto) (0-4) % Baso % (Auto) (0-2) % Lymph # (Auto) (1.2-4.9) X10*3/uL Marshall # (Auto) (0.1-1.2) X10*3/uL Eos # (Auto) (0.0-0.4) X10*3/uL Baso # (Auto) (0.0-0.2) X10*3/uL Abs Immat Gran (auto) (0.00-0.03) X10*3/uL Absolute Neuts (auto) (2.0-8.3) x10*3/uL Absolute Nucleated RBC (0.0-0.012) X10*3/uL Nucleated RBC % (auto) (0.0-0.2) /100WBC Sodium (135-145) mmol/L Potassium (3.3-5.1) mmol/L Chloride (96-108) mmol/L Carbon Dioxide (22-29) mmol/L Anion Gap (12-20) BUN (9-16) mg/dL Creatinine (0.5-1.4) mg/dL Estim Creat Clear Calc Estimated GFR Random Glucose (60-115) mg/dL Calcium (8.4-10.2) mg/dL Total Bilirubin (0.0-1.0) mg/dL AST (5-31) U/L ALT (0-31) U/L Alkaline Phosphatase (39-117) U/L Total Protein (6.5-8.0) g/dL Albumin (3.5-5.0) g/dL Stool Occult Blood POSITIVE (NEGATIVE) Blood Type Antibody Screen Crossmatch <Lilly Mims MD - Last Filed: 07/04/22 22:26> Critical Care Time Critical Care Time Critical Care Time: Yes <Lilly Mims MD - Last Filed: 07/04/22 22:26> Total Critical Care Time: 60 <Lilly Mims MD - Last Filed: 07/04/22 22:26> Attestation: I have personally provided critical care time. Time includes review of lab data, radiology results, discussion with consultants, and monitoring for potential decompensation. Intervention performed as documented. <Lilly Mims MD - Last Filed: 07/04/22 22:26> Discharge Plan Discharge Clinical Impression: Acute on chronic anemia <SNOW Lopez - Last Filed: 07/04/22 13:37> Patient Disposition: Home, Self-Care <SNOW Lopez - Last Filed: 07/04/22 13:37> Instructions: Anemia (ED), Blood Transfusion (DC) <SNOW Lopez - Last Filed: 07/04/22 13:37> Prescriptions: No Action Mavyret 100-40 mg tablet 3 tab PO DAILY 28 Days Qty: 84 1RF Rx Instructions: must administer with a meal/food folic acid 1 mg tablet 1 mg PO DAILY 60 Days Qty: 60 3RF sucralfate [Carafate] 100 mg/mL suspension 10 ml PO BID Qty: 400 0RF lisinopril 20 mg tablet 20 mg PO DAILY carvedilol 3.125 mg tablet 3.125 mg PO BID Rx Instructions: must administer with a meal/food ferrous sulfate 325 mg (65 mg iron) tablet 325 mg PO BID 90 Days Qty: 180 1RF pantoprazole [Protonix] 40 mg tablet,delayed release (DR/EC) 40 mg PO DAILY <SNOW Lopez - Last Filed: 07/04/22 13:37> Interventions: ED Discharge Assessment Last Done: 07/04/22 20:45 <SNOW Lopez - Last Filed: 07/04/22 13:37> Discharge Date/Time: 07/04/22 20:54 <SNOW Lopez - Last Filed: 07/04/22 13:37>
--- NOTE | 2022-07-04 13:45 | ECG_ITS ---
Test Reason : weak/anemic Blood Pressure : / mmHG Vent. Rate : 102 BPM Atrial Rate : 102 BPM P-R Int : 128 ms QRS Dur : 086 ms QT Int : 348 ms P-R-T Axes : 056 012 090 degrees QTc Int : 453 ms Sinus tachycardia with Premature supraventricular complexes Minimal voltage criteria for LVH, may be normal variant ( Jaylon product ) Septal infarct , age undetermined Abnormal ECG When compared with ECG of 31-AUG-2006 12:04, Premature supraventricular complexes are now Present Septal infarct is now Present T wave inversion now evident in Lateral leads Referred By: Lilly Mims Electronically Signed By:WILFRID PLATT MD
[2022-07-04 13:52] LABS: MANUAL DIFF FLAG NO
[2022-07-04 13:55] LABS: Basophils Absolute Auto 0.1 X10*3/uL (0.0-0.2); Basophils Percent Auto 0.8 % (0-2); Eosinophils Absolute Auto 0.1 X10*3/uL (0.0-0.4); Eosinophils Percent Auto 1.8 % (0-4); Hematocrit 26.3 % (37.0-47.0); Imm Gran Abs Auto 0.01 X10*3/uL (0.00-0.03); Imm Gran Pct Auto 0.2 % (0.0-0.4); Lymphocytes Absolute Auto 1.1 X10*3/uL (1.2-4.9); Mean Corpuscular HGB Conc 26.2 g/dl (31.0-35.0); Mean Corpuscular Hemoglobin 16.5 pg (27.0-33.0); Monocytes Absolute Auto 0.6 X10*3/uL (0.1-1.2); Monocytes Percent Auto 10.4 % (2-11); Neutrophils Percent Auto 67.8 % (45-73); Platelet Count 164 X10*3/uL (160-400); Red Blood Count 4.19 X10*6/uL (4.20-5.50); Red Cell Distribution Width 19.2 % (11.0-16.0)
[2022-07-04 13:56] LABS: Mean Corpuscular Volume 62.8 fL (80.0-98.0)
[2022-07-04 14:03] LABS: Hemoglobin 6.9 g/dl (12.0-16.0)
[2022-07-04 14:15] LABS: Alanine Aminotransferase 18 U/L (0-31); Albumin Level 3.8 g/dL (3.5-5.0); Alkaline Phosphatase 82 U/L (39-117); Anion Gap 15 (12-20); Aspartate Amino Transferase 22 U/L (5-31); Bilirubin Total 1.5 mg/dL (0.0-1.0); Blood Urea Nitrogen 22 mg/dL (9-16); Calcium 9.1 mg/dL (8.4-10.2); Carbon Dioxide 23 mmol/L (22-29); Chloride 107 mmol/L (96-108); Creatinine Clr Calc Pharmacy 38.8; Estimated Glomerular Filt Rate 42; Glucose Random 140 mg/dL (60-115); Potassium 4.3 mmol/L (3.3-5.1); Sodium 141 mmol/L (135-145); Total Protein 7.7 g/dL (6.5-8.0)
[2022-07-04 14:56] LABS: OBS Int Ctl Valid YES; OBS1 POSITIVE (NEGATIVE)
[2022-07-04] MEDS: Pantoprazole Sodium 40 MG/10 ML VIAL 80 MG IVPUSH (16:21)
--- NOTE | 2022-07-04 18:24 | PC.NURSE ---
Both units of PRBC infused. No s/sx of reaction noted. Patient remains alert and oriented x3. Denies any chest pain or shortness of breath.
[2022-07-04 19:49] LABS: Hematocrit 31.7 % (37.0-47.0)
== END 2022-07-04 20:54 | disposition home or self-care (01) ==
PROVIDERS: Physician Assistant; Emergency Provider Emergency Medicine; PCP Internal Medicine
DX: D64.89 Other specified anemias (principal); R53.83 Other fatigue; K92.1 Melena; K25.9 Gastric ulcer, unspecified as acute or chronic, without hemorrhage or perforation; Z86.19 Personal history of other infectious and parasitic diseases; D50.0 Iron deficiency anemia secondary to blood loss (chronic); I10 Essential (primary) hypertension; K92.2 Gastrointestinal hemorrhage, unspecified
CPT/HCPCS: 36415; 36430; 80053; 82272; 85014; 85018; 85025; 86850; 86900; 86901; 86920; 93005; 96374; 99284; 99285; P9016

== ENCOUNTER 2022-07-25 11:49 | Day surgery (SDC) | payer OTHER, SELFPAY ==
[2022-07-20 15:56] VITALS: BMI 30.2
[2022-07-25 12:29] VITALS: BMI 30.2
[2022-07-25 12:36] VITALS: BP 177/90; PULSE 74; RESP 16; TEMP 36.9; O2SAT 99
[2022-07-25] MEDS: Lactated Ringers 1,000 ML 50 ML IVCONT (12:54)
--- NOTE | 2022-07-25 13:46 | HO.ANESPROP2 ---
[facility] Active Problems Active Problems: All Active Problems (Updated 07/20/22 @ 15:47 by Winsome Ontiveros, RN) Hepatitis C, chronic (Acute) Hypertension (Acute) Anxiety disorder (Acute) Hepatic cirrhosis due to chronic hepatitis C infection (Acute) Iron deficiency anemia (Acute) Encounter for screening colonoscopy (Acute) Past Medical History Medical History (Updated 07/20/22 @ 15:47 by Winsome Ontiveros, RN) Anemia Anxiety Hepatitis C Hiatal hernia HTN (hypertension) Hx of gastritis Liver cirrhosis Family History Family History Father Diabetes Paternal Grandmother Diabetes Mother Alzheimer disease Surgical History Surgical History (Updated 07/20/22 @ 15:47 by Winsome Ontiveros RN) History of esophagogastroduodenoscopy (EGD) Hx of cataract surgery Hx of colonoscopy History of Problems with Anesthesia: No Social History Social History Household Members: None Alcohol intake: never Patient Tobacco Use Status: Current someday Tobacco user Tobacco use type: Cigarette Cigarettes Per Day: 2 Use of substances other than those prescribed or required for medical reasons: No Are you DNR?: No Advance Directives: No Advance Directives Information Provided: Yes Meds Allergies Allergy/AdvReac Type Severity Reaction Status Date / Time No Known Allergies Allergy Verified 07/20/22 15:49 Active Medications: Current Medications Lactated Ringer's (Lr) 1,000 mls @ 50 mls/hr IVCONT .Q20H LOYD Home Medications Medication Instructions Recorded Confirmed Last Taken Type pantoprazole 40 mg tablet,delayed 40 mg PO DAILY 10/28/21 07/20/22 Unknown History release (Protonix) carvedilol 3.125 mg tablet 3.125 mg PO BID 12/09/21 07/20/22 Unknown History lisinopril 20 mg tablet 20 mg PO DAILY 12/09/21 07/20/22 Unknown History Exam Exam Date and Time: July 25, 2022 1346 Height,Weight and Vital Signs: Height 5 ft 2 in Weight 74.843 kg Last Vital Signs Temp 98.5 F 07/25/22 12:36 Pulse 74 07/25/22 12:36 Resp 16 07/25/22 12:36 BP 177/90 H 07/25/22 12:36 Pulse Ox 99 07/25/22 12:36 O2 Del Method Room Air 07/25/22 12:36 Airway Mallampati Class: II TM Dist: >3cm Neck ROM: Full Denture: Upper Partial: Lower Heart: rrr Lungs: cta Assessment and Plan Assessment Anesthesia Assessment: Anesthesia Plan Discussed and Chart Reviewed Final Anesthetic Review History of Problems with Anesthesia: No NPO: Yes ASA Class: III Final Preanesthetic Review: No Changes in Pt Med Stat, Meds/Allgs Chart Reviewed and Consent Obtained/Reviewed Patient Risk: Intermediate Procedure Risk: Intermediate Anesthetic Plan Anesthetic Plan: MAC: Disposition: Standard PACU
--- NOTE | 2022-07-25 13:47 | MHC.SHP ---
Pre-Procedural Eval Section A Date of Service: 07/25/22 The patient is an INPATIENT: No Changes since office visit: Yes Patient answered all questions; No Cold of Flu in the past 2 weeks, No New Medical Problems and No Changes in Medication The History & Physical has been completed within 30 days and I have reviewed it.: Yes Section B Chief Complaint: Iron deficiency anemia, Allergies: Allergies Allergy/AdvReac Type Severity Reaction Status Date / Time No Known Allergies Allergy Verified 07/20/22 15:49 Plan I have reviewed the history and physical and performed a pertinent physical examination on my patient. No changes have occurred unless specified. Time Spent With Patient Time: Total time managing care of this patient today ____ minutes.
--- NOTE | 2022-07-25 13:51 | W.PM.OPN ---
Operative Note Operative Note Date of Service: 07/25/22 Narrative: FLEXIBLE TRANSORAL UPPER GASTROINTESTINAL ENDOSCOPY Pre-op diagnosis: FU of esophageal varices Post-op diagnosis: Small esophageal varices, mild portal hypertensive gastropathy Endoscopist:? Vladimir Marks MD Anesthesia:?MAC Consent: Indications for the procedure and potential complications of bleeding, perforation, reaction to medications and missed diagnosis were discussed with the patient and informed consent was obtained. Instrument: Olympus GIF H 190 mid size upper endoscope Monitoring: Vital signs and clinical assessment, continuous EKG monitoring, Pulse oximetry, Carbon Dioxide monitoring and blood pressure monitoring were done throughout the procedure. Procedure: The patient was placed in the left lateral decubitis position and pre-procedure medications were administered and a bite block was placed. The endoscope was inserted into the mouth and advanced under direct vision to the third part of duodenum. A careful inspection was made as the upper endoscope was withdrawn including a retroflexed examination of the proximal stomach; Findings and interventions are described below. Findings: Larynx: Normal Esophagus: GE junction at 38 cms, small hiatal hernia 38 to 40 cms. No esophagitis or Lemon's. Two columns of grade 1 -2 varices from 30 to 38 cms which flattened on air insufflation Varices were not amenable to band ligation. Stomach: Mild gastric erythema. Biopsies were obtained. Mosaic pattern in the gastric body consistent with mild portal hypertensive gastropathy No gastric varices and grade 2 flap valve on retroflexed examination of the cardia. Duodenum: Normal bulb and descending duodenum Intervention: None Impression and Post Procedure Diagnosis: Endoscopy Findings: ESOPHAGUS: GE junction at 38 cms, small hiatal hernia 38 to 40 cms. No esophagitis or Lemon's. Two columns of grade 1 -2 varices from 30 to 38 cms which flattened on air insufflation And were not amenable to band ligation. STOMACH: mild portal hypertensive gastropathy Plan: Patient was scheduled for same day colonoscopy today. Unfortunately she did not take her prep. Colonoscopy will be rescheduled at a later date. Repeat EGD in 6 months Patient has an appointment on 08/08/22 in the GI Clinic with Vladimir Marks M.D. Above findings were reviewed with the patient and esophageal varices handout was given in the discharge area
[2022-07-25 14:14] VITALS: BP 93/59; PULSE 76; RESP 16; TEMP 36.4; O2SAT 95
[2022-07-25 14:29] VITALS: BP 124/74; PULSE 74; RESP 18; O2SAT 99
== END 2022-07-25 15:06 | disposition home or self-care (01) ==
PROVIDERS: PCP Internal Medicine; Visit Provider Internal Medicine Gastroenterology
PROC: 0DJ08ZZ Inspection of Upper Intestinal Tract, Via Natural or Artificial Opening Endoscopic (ICD-10-PCS; CPT 43235; principal; 2022-07-25 13:00)
DX: I85.00 Esophageal varices without bleeding (principal); K76.6 Portal hypertension; K31.89 Other diseases of stomach and duodenum; K44.9 Diaphragmatic hernia without obstruction or gangrene; D50.9 Iron deficiency anemia, unspecified; I10 Essential (primary) hypertension
CPT/HCPCS: 43235

== ENCOUNTER 2022-08-03 12:46 | Day surgery (SDC) | payer OTHER, SELFPAY ==
[2022-08-03 13:26] VITALS: BMI 29.2
[2022-08-03 13:34] VITALS: BMI 29.2
[2022-08-03 13:35] VITALS: BP 163/76; PULSE 78; RESP 18; TEMP 36.3; O2SAT 99
--- NOTE | 2022-08-03 14:18 | MHC.SHP ---
Pre-Procedural Eval Section A Date of Service: 08/03/22 The patient is an INPATIENT: No The History & Physical has been completed within 30 days and I have reviewed it.: No Section B Chief Complaint: Colon cancer screening, Iron deficiency anemia, Relevant Family History (Specify if Yes): No Relevant Social History: Tobacco Use Present Medications: see Short Stay Collaborative assessment Medical History: Significant History (Anemia Anxiety Hepatitis C HTN (hypertension) Liver cirrhosis) History of Previous Operations: Relevant previous surgery/procedure and date(s) (History of esophagogastroduodenoscopy (EGD) Hx of cataract surgery Hx of colonoscopy) Allergies: Allergies Allergy/AdvReac Type Severity Reaction Status Date / Time No Known Allergies Allergy Verified 07/20/22 15:49 Review of Systems Sugical H&P ROS: Negative: Constitution, Cardiovascular, Respiratory and Gastrointestinal Exam Surgical H&P Exam: Normal: Heart, Normal: Lungs, Normal: Extremities and Normal: Abdomen Plan Diagnosis/Plan: Unchanged I have reviewed the history and physical and performed a pertinent physical examination on my patient. No changes have occurred unless specified. Time Spent With Patient Time: Total time managing care of this patient today ____ minutes.
--- NOTE | 2022-08-03 14:26 | W.PM.OPN ---
Operative Note Operative Note Date of Service: 08/03/22 Narrative: COLONOSCOPY TILL CECUM WITH BIOPSIES AND SNARE POLYPECTOMY Pre-op diagnosis: Colon cancer screening, iron deficiency anemia Post-op diagnosis:? Colon polyp, diverticulosis, hemorrhoids Endoscopist:? Vladimir Marks MD Anesthesia:?MAC Consent: Indications for the procedure and potential complications of bleeding, perforation, reaction to medications and missed diagnosis were discussed with the patient and informed consent was obtained. Instrument: Olympus PCF H 190 L variable stiffness pediatric colonoscope Monitoring: Vital signs and clinical assessment, intermittent blood pressure monitoring, continuous EKG monitoring, Pulse oximetry and Carbon Dioxide monitoring were done throughout the procedure. Please see anesthesia flowsheet. Colon withdrawl time was 20 minutes. Procedure: The patient was placed in the left lateral decubitis position and pre-procedure medications were administered. After a digital rectal examination of the ano-rectum, the video colonoscope was inserted into the rectum and advanced through the colon to the cecum. The colonoscope was slowly withdrawn in a retrograde panoramic fashion and the colon mucosa was carefully examined including a retroflexed view of the rectum. Findings and interventions are described below. Procedure Difficulty: Colon was long and tortuous and there was some loop formation. Findings: Terminal Ileum: Not evaluated Cecum: Normal Ascending Colon: Mild edema of colonic folds in the right colon (likely due to cirrhosis with portal hypertension) - random biopsies were obtained. Moderate diverticulosis Transverse Colon: Moderate diverticulosis Descending Colon: Moderate diverticulosis Sigmoid Colon: A 12-15 mm sessile polyp in the distal sigmoid colon at 20 cm - removed with a hot snare. Moderate diverticulosis Rectum: Moderate non-bleeding rectal varices. Ano-rectum: Moderate internal hemorrhoids Colon preparation: Good Impression and Post Procedure Diagnosis: Colonoscopy Findings: One medium sized polyp removed Mild edema of colonic folds in the right colon (likely due to cirrhosis with portal hypertension) - random biopsies were obtained. Moderate diverticulosis seen in the entire colon Moderate rectal varices and hemorrhoids on retroflexed exam. Plan: Await pathology results Patient has an appointment on 08/08/22 in the GI Clinic with Vladimir Marks M.D. Repeat Colonoscopy interval based on path results - in 3 years if polyps are adenomatous and 10 years if polyps are hyperplastic. Above findings were reviewed with the patient and colon polyps and diverticulosis handouts were given in the discharge area
[2022-08-03] MEDS: Lactated Ringers 1,000 ML 100 ML IVCONT (14:31)
--- NOTE | 2022-08-03 14:50 | HO.ANESPROP2 ---
HPI - Anesthesia Eval Consult details Narrative: screening anemia PMFSH Active Problems Active Problems: All Active Problems (Updated 07/20/22 @ 15:47 by Winsome Ontiveros RN) Hepatitis C, chronic (Acute) Hypertension (Acute) Anxiety disorder (Acute) Hepatic cirrhosis due to chronic hepatitis C infection (Acute) Iron deficiency anemia (Acute) Encounter for screening colonoscopy (Acute) Past Medical History Medical History Anemia Anxiety Hepatitis C Hiatal hernia HTN (hypertension) Hx of gastritis Liver cirrhosis Family History Family History Father Diabetes Paternal Grandmother Diabetes Mother Alzheimer disease Family history of problems with anesthesia: No Surgical History Surgical History History of esophagogastroduodenoscopy (EGD) Hx of cataract surgery Hx of colonoscopy History of Problems with Anesthesia: No Social History Social History Household Members: None Alcohol intake: never Patient Tobacco Use Status: Current everyday Tobacco user Tobacco use type: Cigarette Cigarettes Per Day: 2 Use of substances other than those prescribed or required for medical reasons: No Are you DNR?: No Advance Directives: No Advance Directives Information Provided: Yes Meds Allergies Allergy/AdvReac Type Severity Reaction Status Date / Time No Known Allergies Allergy Verified 07/20/22 15:49 Active Medications: Current Medications Lactated Ringer's (Lr) 1,000 mls @ 100 mls/hr IVCONT .Q10H LOYD Last Admin: 08/03/22 14:31 Dose: 100 mls/hr Home Medications Medication Instructions Recorded Confirmed Last Taken Type pantoprazole 40 mg tablet,delayed 40 mg PO DAILY 10/28/21 07/20/22 Unknown History release (Protonix) carvedilol 3.125 mg tablet 3.125 mg PO BID 12/09/21 07/20/22 Unknown History lisinopril 20 mg tablet 20 mg PO DAILY 12/09/21 07/20/22 Unknown History Exam Exam Date and Time: August 03, 2022 1450 Height,Weight and Vital Signs: Height 5 ft 2 in Weight 72.575 kg Last Vital Signs Temp 97.4 F 08/03/22 13:35 Pulse 78 08/03/22 13:35 Resp 18 08/03/22 13:35 BP 163/76 H 08/03/22 13:35 Pulse Ox 99 08/03/22 13:35 O2 Del Method Room Air 08/03/22 13:35 Airway Mallampati Class: II TM Dist: >3cm Neck ROM: Full Heart: rr Lungs: cta Assessment and Plan Assessment Anesthesia Assessment: Anesthesia Plan Discussed and Chart Reviewed Final Anesthetic Review Family History of Problems with Anesthesia: No History of Problems with Anesthesia: No NPO: Yes ASA Class: III Final Preanesthetic Review: No Changes in Pt Med Stat, Meds/Allgs Chart Reviewed, Consent Obtained/Reviewed and Anes Risks/Benef Reviewed Anesthetic Plan Anesthetic Plan: MAC: Disposition: Standard PACU
[2022-08-03 15:20] VITALS: BP 102/66; PULSE 73; RESP 16; TEMP 36.4; O2SAT 96
[2022-08-03 15:35] VITALS: BP 157/82; PULSE 80; RESP 16; TEMP 36.4; O2SAT 97
== END 2022-08-03 16:21 | disposition home or self-care (01) ==
PROVIDERS: PCP Internal Medicine Gastroenterology; Visit Provider Internal Medicine Gastroenterology
PROC: 0DJD8ZZ Inspection of Lower Intestinal Tract, Via Natural or Artificial Opening Endoscopic (ICD-10-PCS; CPT 45378; principal; 2022-08-03 14:00)
DX: Z12.11 Encounter for screening for malignant neoplasm of colon (principal); D12.5 Benign neoplasm of sigmoid colon; K57.30 Diverticulosis of large intestine without perforation or abscess without bleeding; K64.8 Other hemorrhoids; I86.8 Varicose veins of other specified sites; D50.9 Iron deficiency anemia, unspecified; E61.0 Copper deficiency; I10 Essential (primary) hypertension; K74.60 Unspecified cirrhosis of liver; B19.20 Unspecified viral hepatitis C without hepatic coma; F41.1 Generalized anxiety disorder; Z79.899 Other long term (current) drug therapy; F17.210 Nicotine dependence, cigarettes, uncomplicated
CPT/HCPCS: 45385; 45380; 88305

== ENCOUNTER → 2022-08-08 12:15 | Outpatient (BNVA) | payer OTHER, SELFPAY | PROVIDERS: PCP Internal Medicine; Visit Provider Internal Medicine Gastroenterology | DX: Z12.11 Encounter for screening for malignant neoplasm of colon (principal); B18.2 Chronic viral hepatitis C; D50.9 Iron deficiency anemia, unspecified; Z86.010 Personal history of colon polyps | CPT/HCPCS: 99212 ==

== ENCOUNTER 2022-08-23 11:06 | Outpatient (REF) | payer OTHER, SELFPAY ==
--- NOTE | ~2022-08-23 | US_ITS ---
EXAMINATION: US ABDOMEN LIMITED CLINICAL INFORMATION: Chronic viral hepatitis C, cirrhosis, screening for HCC. COMPARISON: Ultrasound abdomen complete 01/19/2022. MRI abdomen 06/19/2013. TECHNIQUE: Real-time imaging of the right upper quadrant abdominal viscera. FINDINGS: PANCREAS: The head and body the pancreas is normal. The tail is not well visualized due to bowel gas. LIVER: The liver is cirrhotic. There is question of a new hypoechoic lesion in the right lobe of the liver measuring 2.7 x 2.1 x 2.2 cm. The main portal vein is enlarged measuring 1.6 cm. There is thrombus seen in the left portal vein and question extending into some of the main portal vein similar to previous exam. There is no biliary duct dilatation. GALLBLADDER: The gallbladder is normal in size. No gallstones are seen. The gallbladder wall is slightly thickened and edematous measuring 6 mm. This may be related to liver disease. COMMON BILE DUCT: Normal in caliber measuring 0.57 cm in diameter. RIGHT KIDNEY: Small echogenic focus in the upper pole measuring 4 mm questionable for a stone. No hydronephrosis. No renal calculi or focal parenchymal lesions. The kidney measures 9.1 cm in maximum dimension. FREE FLUID: None. US/US abdomen limited IMPRESSION: Cirrhotic liver. Question new hypoechoic lesion right lobe measuring maximum 2.7 cm. Follow-up liver MRI recommended. 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 Findings will be communicated by the [employer] work flow solution professional.
[2022-08-23 14:32] LABS: Hemoglobin 12.4 g/dl (12.0-16.0); Mean Corpuscular Hemoglobin 24.1 pg (27.0-33.0); Mean Corpuscular Volume 77.8 fL (80.0-98.0); Red Blood Count 5.14 X10*6/uL (4.20-5.50); Red Cell Distribution Width 25.2 % (11.0-16.0); White Blood Count 3.6 X10*3/uL (4.8-10.8)
[2022-08-23 15:00] LABS: Alanine Aminotransferase 18 U/L (0-31); Albumin Level 3.9 g/dL (3.5-5.0); Alkaline Phosphatase 65 U/L (39-117); Aspartate Amino Transferase 22 U/L (5-31); Bilirubin Direct 0.4 mg/dL (0.0-0.5); Bilirubin Total 0.9 mg/dL (0.0-1.0); Total Protein 7.3 g/dL (6.5-8.0)
[2022-08-23 15:16] LABS: Ferritin 49 ng/mL (10-250)
[2022-08-23 15:28] LABS: Platelet Count 81 X10*3/uL (160-400)
[2022-08-26 13:49] LABS: HCV Log PCR <1.18 NOT DETECTED Log IU/mL (NOT DETECTED); HepC Viral Load <15 NOT DETECTED IU/mL (NOT DETECTED)
== END 2022-08-23 11:07 | disposition home or self-care (01) ==
LOC: HO.HMGCX 11:06
PROVIDERS: PCP Internal Medicine; Visit Provider Internal Medicine Gastroenterology
DX: D50.9 Iron deficiency anemia, unspecified (principal); K74.60 Unspecified cirrhosis of liver; B18.2 Chronic viral hepatitis C
CPT/HCPCS: 36415; 76705; 80076; 82728; 85027; 87522

== ENCOUNTER 2022-08-23 11:48 | Outpatient (REF) | payer OTHER, SELFPAY | END 2022-08-23 11:49 | disposition home or self-care (01) | LOC: HO.LAB 11:48 | PROVIDERS: Visit Provider Internal Medicine Gastroenterology | DX: Z13.89 Encounter for screening for other disorder (principal) ==

== ENCOUNTER → 2022-10-13 13:32 | Outpatient (BNVA) | payer OTHER, SELFPAY | PROVIDERS: Visit Provider Internal Medicine Gastroenterology | DX: K74.60 Unspecified cirrhosis of liver (principal); B18.2 Chronic viral hepatitis C; D50.9 Iron deficiency anemia, unspecified; Z86.010 Personal history of colon polyps | CPT/HCPCS: 99212 ==

== ENCOUNTER 2022-10-17 08:43 | Outpatient (REF) | payer OTHER, SELFPAY | END 2022-10-17 08:44 | disposition home or self-care (01) | LOC: HO.MRI 08:43 | PROVIDERS: PCP Internal Medicine; Visit Provider Internal Medicine Gastroenterology | DX: K76.9 Liver disease, unspecified (principal) | CPT/HCPCS: 74183; A9585 ==

== ENCOUNTER 2022-11-07 08:50 | Outpatient (REF) | payer OTHER, SELFPAY ==
--- NOTE | ~2022-11-07 | US_ITS ---
EXAMINATION: US ABDOMEN LIMITED CLINICAL INFORMATION: Liver disease with questionable new hypoechoic lesion in the right lobe seen on the previous study. MRI show 1.3 cm lesion in the left lobe, linear lesion in the right lobe.. COMPARISON: MRI from 10/17/2022 and abdominal ultrasound from 08/23/2022 TECHNIQUE: Real-time imaging of the right upper quadrant abdominal viscera. FINDINGS: PANCREAS: Normal. LIVER: The liver is abnormal with coarse echo structure and nodular contour most likely cirrhotic. There is 1.0 x 0.7 x 0.8 cm echogenic lesion in the left lobe of the liver possibly part of fibrosis or hemangioma. The lesion is not vascular. Right lobe revealed hypoechoic 1.5 x 1.5 x 1.4 cm ill-defined focus. There is trace of ascites in the right lobe of the liver. The liver is of normal in size. There is no intrahepatic biliary duct dilatation seen. GALLBLADDER: The gallbladder is physiologically distended without evidence of stones, sludge, polyps,. The gallbladder wall measured 0.3 cm. Trace of fluid since the gallbladder wall. COMMON BILE DUCT: Normal in caliber measuring 0.6 cm in diameter. RIGHT KIDNEY: Normal. No hydronephrosis. No renal calculi or focal parenchymal lesions. The kidney measures 9.1 cm in maximum dimension. There is echogenic focus in the upper pole, without shadowing most likely calcified with FREE FLUID: There is small amount of free fluid in the right lobe of the liver and gallbladder wall US/US abdomen limited IMPRESSION: 1. Abnormal liver with nodular contour and trace of ascites due to cirrhosis. 2. Ill-defined lesion in the right lobe of the liver. 3. Echogenic focus in the right lobe of the liver probably fibrosis or hemangioma. 4. Small amount of free fluid in the right lobe of the liver and gallbladder wall.
[2022-11-07 10:13] LABS: Mean Corpuscular Volume 82.5 fL (80.0-98.0); PLT CLUMP 1; Red Cell Distribution Width 13.2 % (11.0-16.0)
[2022-11-07 10:14] LABS: INTERNATIONAL NORM RATIO 1.1 (0.9-1.1); Prothrombin Time 13.1 SEC (10.0-13.1)
[2022-11-07 10:15] LABS: Hematocrit 44.9 % (37.0-47.0); Hemoglobin 14.6 g/dl (12.0-16.0); Mean Corpuscular HGB Conc 32.5 g/dl (31.0-35.0); Mean Corpuscular Hemoglobin 26.8 pg (27.0-33.0); Mean Platelet Volume 10.1 fL (9.4-12.3); Red Blood Count 5.44 X10*6/uL (4.20-5.50); White Blood Count 4.7 X10*3/uL (4.8-10.8)
[2022-11-07 10:16] LABS: Platelet Count 96 X10*3/uL (160-400)
[2022-11-07 10:46] LABS: Alanine Aminotransferase 21 U/L (0-31); Albumin Level 4.6 g/dL (3.5-5.0); Alkaline Phosphatase 66 U/L (39-117); Aspartate Amino Transferase 24 U/L (5-31); Bilirubin Direct 0.4 mg/dL (0.0-0.5); Bilirubin Total 1.1 mg/dL (0.0-1.0); Estimated Glomerular Filt Rate 55; Total Protein 8.9 g/dL (6.5-8.0)
[2022-11-09 08:43] LABS: Carbohydrate Antigen 19-9 27 U/mL (<34)
[2022-11-09 13:09] LABS: Alpha Fetoprotein 11.2 ng/mL
== END 2022-11-07 08:51 | disposition home or self-care (01) ==
LOC: HO.US 08:50
PROVIDERS: Visit Provider Internal Medicine Gastroenterology
DX: K76.9 Liver disease, unspecified (principal); B18.2 Chronic viral hepatitis C; K74.60 Unspecified cirrhosis of liver
CPT/HCPCS: 36415; 76705; 80076; 82105; 82378; 82565; 85027; 85610; 86301

== ENCOUNTER 2023-03-13 13:50 | Outpatient (REF) | payer OTHER, SELFPAY ==
--- NOTE | ~2023-03-13 | MR_ITS ---
EXAMINATION: MRI ABDOMEN WITH AND WITHOUT CONTRAST CLINICAL INFORMATION: K76.9 - Liver disease, unspecified. Three-month follow-up liver lesions COMPARISON: No pertinent priors currently available. TECHNIQUE: Multiple routine MRI sequences through the abdomen were obtained on a high-field 1.5Tesla MRI. Pre-and postcontrast images with 6.5 mL of Gadavist intravenous contrast were obtained. This included a dynamic contrast-enhanced technique. FINDINGS: Lung bases: The visualized lung bases are unremarkable. Left ventricular apical aneurysm again suggested. This is only partially seen but there does appear to be apical thinning and fullness. Right breast implant only partially seen on the large [id number] coronal localizer but does appear to be asymmetrically smaller than the left. Peritoneal space: Small volume of abdominal ascites is present Liver: Nodular cirrhotic fibrotic liver is again demonstrated a heterogeneous background signal. There are scattered arterial phase enhancing foci which appear to fade to background on later phases of contrast which are nonspecific. Along the posterior inferior aspect of segment 3 of the liver there is a more discrete enhancing 1.6 cm region seen which does not demonstrate significant discrete washout or pseudocapsule formation on later phases. This area of enhancement previously measured up to 1.3 cm on the 10/17/2022 study. Although this does not satisfy OPTN criteria for hepatocellular carcinoma at this time, continued close follow-up of this apparently growing region would be recommended. Gallbladder: Gallbladder is unremarkable. No suspicious gallstones or filling defects. No gallbladder wall thickening or pericholecystic inflammatory changes. Pancreas: Pancreas is homogeneous in signal. No pancreatic ductal dilatation or obstruction. No peripancreatic inflammatory changes or fluid. Spleen: Enlarged measuring 14.1 cm in length. Adrenals: Unremarkable Kidneys: Kidneys are normal in size, shape, and signal. No suspicious renal mass lesion seen. No hydronephrosis or perinephric edema. Other: No bulky adenopathy Vessels: Although not performed as an MR angiogram, the hepatic artery is patent arising from the celiac axis. The visualized superior mesenteric vein, splenic vein, portal veins, and hepatic veins are grossly patent. MR/MR abdomen wo/w con IMPRESSION: Nodular cirrhotic fibrotic liver with sequela of portal hypertension. There is a 1.6 cm region of arterial phase enhancement along the posterior inferior aspect of segment 3 of the liver which had measured 1.3 cm maximally on the previous 10/17/2022 study. With the lack of washout or pseudocapsule formation on the later phases, this does not satisfy OPTN criteria for hepatocellular carcinoma at this time, however continued close follow-up of this apparently growing region would be recommended.
[2023-03-13] MEDS: gadobutroL 7.5 ML VIAL IVPUSH (14:47)
== END 2023-03-13 13:51 | disposition home or self-care (01) ==
LOC: HO.MRI 13:50
PROVIDERS: PCP Internal Medicine; Visit Provider Internal Medicine Gastroenterology
DX: K76.9 Liver disease, unspecified (principal); B18.2 Chronic viral hepatitis C; K74.60 Unspecified cirrhosis of liver
CPT/HCPCS: 74183; A9585

== ENCOUNTER 2023-08-29 17:07 | Emergency (ER) | payer OTHER, SELFPAY | END 2023-08-29 18:49 | disposition left against medical advice (07) | PROVIDERS: Emergency Provider Emergency Medicine; PCP Internal Medicine | DX: S69.92XA Unspecified injury of left wrist, hand and finger(s), initial encounter (principal); X58.XXXA Exposure to other specified factors, initial encounter; Z53.21 Procedure and treatment not carried out due to patient leaving prior to being seen by health care provider ==

== ENCOUNTER 2023-08-30 08:58 | Emergency (ER) | payer OTHER, SELFPAY ==
--- NOTE | ~2023-08-30 | XR_ITS ---
EXAMINATION: XR WRIST, LEFT CLINICAL INFORMATION: Left wrist pain COMPARISON: None available. TECHNIQUE: PA, lateral, and oblique views of the left wrist. FINDINGS: There is a comminuted impacted fracture of the distal left radius with extension to the radiocarpal articular surface. There is slight concave dorsal angulation at the fracture site. Chip fracture of the ulnar styloid is noted. Scaphoid and lunate appear within normal limits. There is degenerative joint space narrowing in the radial aspect of the carpus. XR/XR wrist LT min 3V IMPRESSION: Fracture of distal left radius as noted above. Chip fracture of the ulnar styloid.
[2023-08-30 09:07] VITALS: BP 207/97; PULSE 80; RESP 16; TEMP 37; O2SAT 98; BMI 23.8
--- NOTE | 2023-08-30 10:42 | ED_ITS ---
HPI - Extremity Problem General Chief complaint: Extremity Injury, Upper Stated complaint: Wrist injury Time Seen by Provider: 08/30/23 10:40 Source: patient and family (patient's son provided additional history and confirmed the history provided by the patient.) Mode of arrival: ambulatory Limitations: no limitations History of Present Illness HPI Narrative: Patient is a 73 year old assigned female at with a history of hepatitis C, HTN, and anxiety presenting to the emergency department today with left wrist pain. Patient states that yesterday (08/29/2023), she tripped backwards and broke her fall with her left arm. Patient states that she did not hit her head or have any loss of consciousness. Patient denies any dizziness, lightheadedness, abdominal pain, nausea, vomiting, fever, chills, blurry vision, double vision, loss of vision, chest pain, difficulty breathing, shortness of breath, back pain, night sweats, pain with urination, increased urinary frequency, increased urinary urgency, blood in her urine or stool, syncope or a near syncopal episode, bowel incontinence, bladder incontinence, bowel retention, bladder retention, or any other complaints at this time. MD Complaint: extremity pain Onset (ago): day(s) (1) Pain Consistency: constant Location: left and upper extremity Severity scale (1-10): 5 Quality: aching and constant Radiation: none Relieving factors: immobilization Exacerbating factors: range of motion and palpation Associated symptoms: denies other symptoms Related Data Home Medications ?Medication ?Instructions ?Recorded ?Confirmed pantoprazole 40 mg tablet,delayed 40 mg PO DAILY 10/28/21 10/13/22 release (Protonix) carvedilol 3.125 mg tablet 3.125 mg PO BID 12/09/21 10/13/22 lisinopril 20 mg tablet 20 mg PO DAILY 12/09/21 10/13/22 blood pressure test kit-large #1 ea 08/08/22 10/13/22 Previous Rx's ?Medication ?Instructions ?Recorded sucralfate 100 mg/mL oral 10 ml PO BID #400 mL 06/09/22 suspension (Carafate) folic acid 1 mg tablet 1 mg PO DAILY 60 days #60 tabs 06/16/22 ferrous sulfate 325 mg (65 mg 325 mg PO BID 90 days #180 tabs 07/01/22 iron) tablet polyethylene glycol 3350 17 17 g PO DAILY #238 grams 07/06/22 gram/dose oral powder Allergies Allergy/AdvReac Type Severity Reaction Status Date / Time No Known Allergies Allergy Verified 08/30/23 09:09 Review of Systems Constitutional: Constitutional: Reports no additional constitutional complaints, Denies chills, Denies fever(s) and Denies night sweats Eyes: Eyes: Reports no additional eye complaints, Denies blurry vision, Denies change in vision, Denies diplopia, Denies eye discharge, Denies loss of vision and Denies eye pain ENT: Denies dizziness Cardiovascular: Cardiovascular: Reports no additional cardiovascular complaints, Denies chest pain, Denies lightheadedness, Denies Loss of Consciousness and Denies dyspnea Respiratory: Respiratory: Reports no additional respiratory complaints and Denies dyspnea Gastrointestinal: Gastrointestinal: Reports no additional gastrointestinal complaints, Denies abdominal pain, Denies melena, Denies hematochezia, Denies change in bowel habits and Denies change in stool character Genitourinary: Genitourinary: Denies hematuria, Denies urinary frequency, Denies dysuria, Denies urinary incontinence, Denies urinary hesitancy and Denies urinary urgency Musculoskeletal: Musculoskeletal: Reports no additional musculoskeletal complaints, Denies numbness and Denies tingling Comments: left wrist pain Neurologic: Denies dizziness, Denies loss of vision, Denies numbness and Denies tingling Psychiatric: Psychiatric: Reports no additional psychiatric complaints Endocrine: Endocrine: Reports no additional endocrine complaints Hematologic/Lymphatic: Hematologic/Lymphatic: Reports no additional hematologic/lymphatic complaints Allergic/Immunologic: Allergic/Immunologic: Reports no additional allergic/i mmunologic complaints [facility] Past Medical History Attestation statement: The following information was validated with the patient. (patient's son validated all information) Source: old records reviewed, obtained from family (patient's son provided additional history and confirmed the history provided by the patient) and nursing notes reviewed Medical History Hx of gastritis Hiatal hernia Liver cirrhosis Anxiety HTN (hypertension) Hepatitis C Anemia Surgical History History of esophagogastroduodenoscopy (EGD) Hx of cataract surgery Hx of colonoscopy Family History Family History Father Diabetes Paternal Grandmother Diabetes Mother Alzheimer disease Social History Social History Household Members: None Alcohol intake: never Patient Tobacco Use Status: Current everyday Tobacco user Tobacco use type: Cigarette Cigarettes Per Day: 2 Physical Exam Vital Signs: Vital Signs: Last Vital Signs Temp 97.8 F 08/30/23 11:49 Pulse 83 08/30/23 11:49 Resp 16 08/30/23 11:49 BP 201/97 H 08/30/23 11:49 Pulse Ox 98 08/30/23 11:49 O2 Del Method Room Air 08/30/23 11:49 BMI result Body Mass Index 23.8 Const: General: cooperative, no acute distress, alert and awake Nutritional Appearance: well nourished Orientation/consciousness: patient oriented x3 Limitations: no limitations HEENT: Head: Yes normal to inspection and Yes atraumatic Ears: hearing grossly normal bilaterally and external ears normal General nose exam: Normal external nose present, no nasal discharge noted and no epistaxis Face and sinus: Yes normal facial exam, No abrasion and No laceration Mouth: Normal oral and palatal mucosa present, no drooling and no muffled voice Eyes: General: appearance normal, both eyes and all related structures Periorbital: periorbital findings normal Eyelids: Yes eyelids normal Conjunctivae: conjunctivae normal Pupils: Equal, round and reactive pupils present EOM: EOMs intact bilaterally Neck: Neck: Yes normal visual inspection, Yes full ROM and Yes no lymphadenopathy Chest: Chest palpation & inspection: normal inspection of the chest Resp: Effort & Inspection: normal respiratory effort and able to speak in complete sentences GI: Inspection: Yes normal to inspection Neuro: General: patient oriented x3 and moves all extremities Cranial nerves: Yes Equal, round and reactive pupils present Cognition (Neuro): normal cognition Motor exam (neuro): 5/5 motor strength present throughout Sensory Exam: Normal double simultaneous stimulation for sensation Coordination: [id number] test normal Extrem: Other: swelling present to the left wrist, pain with palpation of the left wrist, pain with ROM of the left wrist General: Yes capillary refill normal Psych: Appearance: grossly normal Mental Status: mental status grossly normal Affect: normal affect Attitude: cooperative Thought process: Normal thought process present Thought content: Normal thought content present Insight: Good insight present (Psych) Medical Decision Making Medical Decision Making MDM Narrative: Patient is a 73 year old assigned female at with a history of hepatitis C, HTN, and anxiety presenting to the emergency department today with left wrist pain. Patient's physical exam was as noted in the physical exam portion of this note. Patient's left wrist x-ray showed a fracture of the distal left radius and a chip fracture of the left ulnar styloid. I spoke to the orthopedic team who recommended splinting the patient's wrist and having her follow up outpatient. I explained my physical exam findings as well as all test results to the patient and the patient's son. I answered all questions asked by the patient and the patient's son. Patient's left wrist was placed in a sugar tong splint, without incident. Patient's PMS was intact prior to and after splint placement. Patient was placed in a sling, without incident. Patient's PMS was intact prior to and after sling placement. I stressed the importance of the patient taking her medication as prescribed. I stressed the importance of the patient following up with her primary care provider and an orthopedic provider. I stressed the importance of the patient returning to the emergency department immediately if her symptoms were to worsen or if she were to develop any dizziness, shortness of breath, difficulty breathing, chest pain, blurry vision, loss of vision, nausea, vomiting, abdominal pain, fever, chills, back pain, or any other complaints. Patient verbalized agreement and understanding with this treatment plan and discharge. Differential Diagnosis Differential Diagnoses: The differential diagnosis associated with the presentation includes Wrist fracture Wrist pain Wrist sprain Fall Admission/Observation Consideration of admission/observation: Escalation of care including admission/observation considered Patient would have been admitted to the hospital had her work up had any findings where hospital admission was appropriate and her clinical presentation warranted hospital admission. Consult Healthcare Provider Management of the patient was discussed with: Principal Engineer (spoke with the orthopedic team as noted in the MDM Rationale portion of this note.) Independent Interpretation I performed an independent interpretation of an: Plain X-Ray Interpretation: My interpretation is in agreement with the radiologist's impression of this imaging study. EXAMINATION: XR WRIST, LEFT CLINICAL INFORMATION: Left wrist pain COMPARISON: None available. TECHNIQUE: PA, lateral, and oblique views of the left wrist. FINDINGS: There is a comminuted impacted fracture of the distal left radius with extension to the radiocarpal articular surface. There is slight concave dorsal angulation at the fracture site. Chip fracture of the ulnar styloid is noted. Scaphoid and lunate appear within normal limits. There is degenerative joint space narrowing in the radial aspect of the carpus. XR/XR wrist LT min 3V IMPRESSION: Fracture of distal left radius as noted above. Chip fracture of the ulnar styloid. Dictated By: Erick Mckeon Signed By: Electronically signed by Erick Mckeon 08/30/23 [id number] Independent Historian Clinical information obtained from an independent historian. History obtained from or confirmed by: Other (patient's son provided additional history and confirmed the history provided by the patient.) Tests considered The following testing was considered but not selected: Given the patient's age and recent fall, I considered a CT scan of the head and c-spine. I discussed this with the patient who declined. Patient stated that she did not hit her head and did not want that imaging done. I explained the risks to the patient including , disability, and permanent decrease in quality of life. Patient verbalized understanding and again declined a CT of the head and c-spine. Chronic Conditions Patient?s care impacted by: Hypertension Procedures Orthopedic Splinting/Casting Injury #1: Side: left Upper Extremity Injury Location: wrist Upper Extremity Immobilizer: sling/shoulder immobilizer and sugar tong splint Critical Care Time Critical Care Time Critical Care Time: Yes Total Critical Care Time: 67 Attestation: I spent 67 minutes of Critical Care Time with this patient. This does not include time spent on separately reported billable procedures. Discharge Plan Discharge Clinical Impression: Fracture of wrist Patient Disposition: Home, Self-Care Instructions: Wrist Fracture in Adults (ED) Additional Instructions: Follow up with your primary care provider and an orthopedic provider. Do NOT remove the splint. Do NOT get the splint wet. If your fingers were to begin to tingle or change color, please loosen the LEXI wraps around the splint. If you find yourself loosening to the point of seeing the underlying splint material, come to the ER immediately. Return to the emergency department immediately if your symptoms worsen or if you develop any dizziness, shortness of breath, difficulty breathing, chest pain, blurry vision, loss of vision, nausea, vomiting, abdominal pain, fever, chills, back pain, or any other complaints. Prescriptions: No Action folic acid 1 mg tablet 1 mg PO DAILY 60 Days Qty: 60 3RF polyethylene glycol 3350 17 gram/dose powder 17 g PO DAILY Qty: 238 0RF Rx Instructions: start at 2pm the day before colonoscopy sucralfate [Carafate] 100 mg/mL suspension 10 ml PO BID Qty: 400 0RF lisinopril 20 mg tablet 20 mg PO DAILY carvedilol 3.125 mg tablet 3.125 mg PO BID Rx Instructions: must administer with a meal/food ferrous sulfate 325 mg (65 mg iron) tablet 325 mg PO BID 90 Days Qty: 180 1RF pantoprazole [Protonix] 40 mg tablet,delayed release (DR/EC) 40 mg PO DAILY (DME) blood pressure test kit-large Kit See Rx Instructions .ROUTE DIRECTED Qty: 1 Rx Instructions: As directed Referrals: [facility] [Provider Group] (Call to establish and follow up with an orthopedic provider.) Anna Marks MD [Primary Care Provider] - Interventions: ED Discharge Assessment Last Done: 08/30/23 11:49 Discharge Date/Time: 08/30/23 11:50 Print Language: Namibian
[2023-08-30 11:46] VITALS: BP 201/97; TEMP 36.6; O2SAT 98
[2023-08-30 11:49] VITALS: BP 201/97; PULSE 83; RESP 16; TEMP 36.6; O2SAT 98
== END 2023-08-30 11:50 | disposition home or self-care (01) ==
PROVIDERS: Emergency Provider Emergency Medicine; PCP Internal Medicine
DX: S62.102A Fracture of unspecified carpal bone, left wrist, initial encounter for closed fracture (principal); W18.30XA Fall on same level, unspecified, initial encounter; Y93.9 Activity, unspecified; Y92.9 Unspecified place or not applicable; Y99.9 Unspecified external cause status; M25.532 Pain in left wrist; I10 Essential (primary) hypertension; B19.20 Unspecified viral hepatitis C without hepatic coma; Z79.899 Other long term (current) drug therapy
CPT/HCPCS: 29125; 73110; 99283; 99284

== ENCOUNTER 2023-09-06 08:14 | Outpatient (AMB) | payer OTHER, SELFPAY ==
--- NOTE | 2023-09-06 08:38 | A.OFFVIS_ITS ---
Vital Signs 09/06/23 08:51 Height 5 ft 2 in Weight 130 lb BMI 23.8 Intake Visit Reasons: FC-Left distal radius fracture Intake Note: Althea a 73 year old right hand dominant female who presents today for an evaluation of left wrist fracture, DOI 08/29/23. Patient reports that she was reaching for an item when she fell on her left side, states it happened so fast that she is unsure exactly how she fell. She presented to [facility] ED the following day where xrays were taken and placed in a splint. Currently she has discomfort with movement of her arm. She has a tingling sensation around her wrist. Allergies No Known Allergies Allergy (Verified 09/06/23 08:52) Medication List - Last Reconciled 09/06/23 by SNOW Lester-C blood pressure test kit-large As directed carvedilol 3.125 mg PO BID ferrous sulfate 325 mg PO BID 90 days folic acid 1 mg PO DAILY 60 days lisinopril 20 mg PO DAILY pantoprazole (Protonix) 40 mg PO DAILY polyethylene glycol 3350 17 grams PO DAILY sucralfate (Carafate) 10 mL PO BID HPI HPI FC-Left distal radius fracture: Details: 73-year-old right hand dominant female who presents to the office today for evaluation of left wrist injury while reaching for an item and sustaining a fall on her left side, 08/29/23. She was seen at ED the next day where x-rays were performed and she was placed in a splint. She currently states she has discomfort in her wrist with movement of her arm. She also c/o a tingling sensation around her wrist. [facility] Medical History Hx of gastritis Hiatal hernia Liver cirrhosis Anxiety HTN (hypertension) Hepatitis C Anemia Surgical History History of esophagogastroduodenoscopy (EGD) Hx of cataract surgery Hx of colonoscopy Family History Father Diabetes Paternal Grandmother Diabetes Mother Alzheimer disease Social History Household Members: None Alcohol intake: never Patient Tobacco Use Status: Current everyday Tobacco user Tobacco use type: Cigarette Cigarettes Per Day: 2 Current occupational status: unemployed Review of Systems Const All systems reviewed & are unremarkable except as noted in HPI and below Physical Exam Vital Signs: BMI result Body Mass Index 23.8 Const General: cooperative, healthy appearing, comfortable, no acute distress, well developed and alert Orientation/consciousness: patient oriented x3 HEENT Head: Yes normal to inspection, Yes normocephalic and Yes atraumatic Eyes General: appearance normal, both eyes and all related structures Neck Neck: Yes normal visual inspection and Yes no lymphadenopathy Resp Effort & Inspection: normal respiratory effort and able to speak in complete sentences Cardio Rate: regular rate Peripheral pulses: Peripheral pulses 2+ throughout GI Inspection: Yes normal to inspection Palpation (GI): Soft to palpation Skin General skin exam: no rashes or lesions noted Lesions: no lesions Rashes: no rashes Neuro General: patient oriented x3 Extrem Other: Left wrist: Skin intact. There is mild swelling and bruising over the distal radius with tenderness over the fracture site. There is no pain over the elbow, negative forearm squeeze test. She has full range of motion of the elbow. She can fully extend ll digits and make a closed fist.? Pulses are present and she is neurovascularly intact. Psych Appearance: grossly normal Mental Status: mental status grossly normal Office Procedures Casting/Splints [id number] Splint Application Procedure code (CPT) selection complete Results Reviewed Results Reviewed: Xrays were obtained in the office today and personally reviewed by me of the left wrist comminuted impacted fracture of the distal left radius with extension to the radiocarpal articular surface. There is slight concave dorsal angulation at the fracture site. Assessment & Plan Assessment & Plan (1) Distal radius fracture, left: Code(s): S52.502A - Unspecified fracture of the lower end of left radius, initial encoun ter for closed fracture Category: Medical Qualifiers: Encounter type: initial encounter Fracture type: closed Fracture morphology: Colles' Qualified Code(s): S52.532A - Colles' fracture of left radius, initial encounter for closed fracture Plan I discussed the case with Dr. Merchant. I discussed the extent of the injury to the patient and options available. Given the extent of the fracture pattern and high risk of further displacement, it is recommended that we surgically fix this to help with stability and restoring anatomy. I explained to the patient the procedure in detail along with the risks, benefits and alternatives.? Risks including but not limited to infection, wound breakdown, stiffness, ongoing pain, nonunion or malunion, and possible complications with hardware. She does understand all this and would like to proceed with closed versus open reduction internal fixation of the left distal radius with Dr. Merchant. She will be booked accordingly. Of note, fracture care was not billed today as patient will be having surgery. Orders: Orders XR wrist LT min 3V Today M25.532 - Pain in left wrist Patient Instructions: Scribed for Paulette Ricks PA-C, by Steve Vizcarra medical management trainer, on 09/06/2023 at 8:30 AM EST.? I, Paulette Ricks PA-C, have personally reviewed and agree with the information entered by the scribe. Coding Level of Care Code New Pt Level 4 (90801) Diagnoses Closed Colles' fracture of left radius, initial encounter S52.532A Encounter type: initial encounter Fracture type: closed Fracture morphology: Colles' CPT Codes Splint - CPT: 22979-Lufdmnd Splint Application ([id number])
[2023-09-06 08:51] VITALS: BMI 23.8
== END 2023-09-06 09:39 | disposition home or self-care (01) ==
PROVIDERS: PCP Internal Medicine; Visit Provider Physician Assistant
DX: S52.532A Colles' fracture of left radius, initial encounter for closed fracture (principal); W19.XXXA Unspecified fall, initial encounter
CPT/HCPCS: 29125; 99204

== ENCOUNTER 2023-09-06 08:46 | Outpatient (REF) | payer OTHER, SELFPAY ==
--- NOTE | ~2023-09-06 | XR_ITS ---
EXAMINATION: XR WRIST, LEFT CLINICAL INFORMATION: Pain in left wrist, splint off. COMPARISON: 08/30/2023 TECHNIQUE: PA, lateral, and oblique views of the left wrist. FINDINGS: Redemonstration of a comminuted, intra-articular, impacted fracture of the distal radius with slight concave dorsal angulation at the fracture site. Redemonstration of avulsion fracture fragment of the ulnar styloid. Degenerative changes in the STT. The bones are diffusely demineralized. There is the suggestion of mild bridging callus formation. XR/XR wrist LT min 3V IMPRESSION: Redemonstration of comminuted, intra-articular, impacted fracture of the distal radius with slight concave dorsal angulation at the fracture site. Redemonstration of avulsion fracture fragment of the ulnar styloid.
== END 2023-09-06 08:47 | disposition home or self-care (01) ==
LOC: HO.HOSX 08:46
PROVIDERS: Visit Provider Physician Assistant
DX: S52.532A Colles' fracture of left radius, initial encounter for closed fracture (principal)
CPT/HCPCS: 73110; 99202

== ENCOUNTER 2023-09-07 07:00 | Day surgery (SDC) | payer OTHER, SELFPAY ==
[2023-09-07] VITALS (8 sets, daily range): BP systolic 141–172; BP diastolic 63–87; PULSE 63–78; RESP 18; TEMP 36.2–36.9; O2SAT 96–99; BMI 23.4
--- NOTE | ~2023-09-07 | FL_ITS ---
EXAMINATION: XR FLUOROSCOPY WITH IMAGES CLINICAL INFORMATION: Distal radius ORIF left. COMPARISON: None available. TECHNIQUE: Fluoroscopy Supervised By: Mayur. Fluoroscopy Time: 41.40. Cumulative Dose: 1.1529 mGy. DAP: 0.0697 Gycm2. Images: 1. FINDINGS: Intraoperative fluoroscopy and spot films were performed during a procedure in the OR. There is a plate and screw device overlying the intra-articular fracture of the distal left radius. Please see Dr. Merchant' report for complete details. FL/FL guidance in OR IMPRESSION: Intraoperative fluoroscopy and spot films were obtained. Please see Mayur' report for complete details.
--- NOTE | 2023-09-07 07:46 | HO.ANESPROP2 ---
FORM[facility]LY [facility] Active Problems Active Problems: All Active Problems Distal radius fracture, left (Acute) Liver lesion, left lobe (Acute) Liver lesion, right lobe (Acute) History of colon polyps (Acute) Hepatitis C, chronic (Acute) Hypertension (Acute) Anxiety disorder (Acute) Hepatic cirrhosis due to chronic hepatitis C infection (Acute) Iron deficiency anemia (Acute) Encounter for screening colonoscopy (Acute) Past Medical History Medical History Hx of gastritis Hiatal hernia Liver cirrhosis Anxiety HTN (hypertension) Hepatitis C Anemia Family History Family History Father Diabetes Paternal Grandmother Diabetes Mother Alzheimer disease Family history of problems with anesthesia: No Surgical History Surgical History History of esophagogastroduodenoscopy (EGD) Hx of cataract surgery Hx of colonoscopy History of Problems with Anesthesia: No Social History Social History Household Members: None Alcohol intake: never Patient Tobacco Use Status: Current everyday Tobacco user Tobacco use type: Cigarette Cigarettes Per Day: 2 Smoked in Last 30 Days: Yes Patient Interested in Nicotine Replacement: No Are you DNR?: No Advance Directives: No Advance Directives Information Provided: Yes Nutrition Risks: No Nutritional Risk Current occupational status: unemployed Meds Allergies Allergy/AdvReac Type Severity Reaction Status Date / Time No Known Allergies Allergy Verified 09/07/23 07:57 Active Medications: Current Medications Lactated Ringer's (Lr) 1,000 mls @ 80 mls/hr IVCONT .[id number] [facility] Home Medications ?Medication ?Instructions ?Recorded ?Confirmed ?Last Taken ?Type pantoprazole 40 mg tablet,delayed 40 mg PO DAILY 10/28/21 09/07/23 Unknown History release (Protonix) carvedilol 3.125 mg tablet 3.125 mg PO BID 12/09/21 09/07/23 Unknown History lisinopril 20 mg tablet 20 mg PO DAILY 12/09/21 09/07/23 Unknown History blood pressure test kit-large #1 ea 08/08/22 10/13/22 Unknown History Exam Height,Weight and Vital Signs: Height 5 ft 2 in Weight 57.969 kg Airway Mallampati Class: II TM Dist: >3cm Neck ROM: Full Denture: Upper Partial: Lower Loose/Missing/Broken Teeth: Yes, Upper and Lower Heart: RRR Lungs: CTA Assessment and Plan Assessment Anesthesia Assessment: Anesthesia Plan Discussed and Chart Reviewed Final Anesthetic Review Family History of Problems with Anesthesia: No History of Problems with Anesthesia: No NPO: Yes ASA Class: III Final Preanesthetic Review: Meds/Allgs Chart Reviewed, Consent Obtained/Reviewed and Anes Risks/Benef Reviewed Patient Risk: Intermediate Procedure Risk: Low Anesthetic Plan Anesthetic Plan: GA Disposition: Standard PACU
--- NOTE | 2023-09-07 07:53 | MHC.SHP ---
Pre-Procedural Eval Section A - 24 Hr Update-Section A only Date of Service: 09/07/23 The patient is an INPATIENT: No Changes since office visit: No Cold of Flu in the past 2 weeks, No New Medical Problems, No Changes in Medication and No Patient answered all questions The patient has been examined within 24 hours of the surgical procedure. The History & Physical has been completed within 30 days and I have reviewed it.: Yes Section B - Complete if H&P > 30 days Chief Complaint: Left distal radius fracture Allergies: Allergies Allergy/AdvReac Type Severity Reaction Status Date / Time No Known Allergies Allergy Verified 09/06/23 08:52 Exam Exam Comment: Left distal radius fracture Plan Diagnosis/Plan: Change I have reviewed the history and physical and performed a pertinent physical examination on my patient. No changes have occurred unless specified. Left distal radius fracture ORIF Time Spent With Patient Time: Total time managing care of this patient today ____ minutes.
--- NOTE | 2023-09-07 07:55 | P.OP_ITS ---
Operative Note Operative Note Date of Service: 09/07/23 Narrative: Operative Note Narrative: Preop diagnosis: 1. Left Distal radius fracture, intra-articular Postop diagnosis: Same Procedure: 1. Left Distal radius fracture open reduction internal fixation, 2 part intra- articular Surgeon: Valerie Merchant MD Anesthesia: General anesthesia plus regional block Findings: Left distal radius fracture Implants: A 3 hole Accu Med volar locking plate, with 5x 2.3 mm locking pegs/screws, and 3 x 3.5 mm cortical screws Tourniquet time: 55 minutes EBL: 5.0 ml Specimen: None Drains: None Complications: None Disposition: Brought to the recovery room in stable condition Plan: Follow-up in 10-14 days for wound check, suture removal and postop radiographs The patient will be placed in either a short-arm cast . Encouraged no lifting of anything heavier than a cell phone. Please encourage active and passive range of motion of the digits. Follow-up at 4-5 weeks postop for repeat radiographs. Indications: The patient is a 73 year old woman with left intra-articular distal radius fracture . The risks and benefits of operative treatment, including but not limited to risk of damage to blood vessels, nerves, tendons, infection, recurrence, persistent pain or numbness, incomplete resolution of preoperative symptoms, or need for further surgery were discussed with the patient and they wished to proceed with surgery. Procedure: Once consent was obtained patient was brought back to the operating suite and placed in the operating table in a supine position. A regional block was performed by the anesthesia team. Perioperative antibiotics and anesthesia was administered by the anesthesia team. A tourniquet was applied to the proximal aspect of the left upper extremity and the limb was prepped and draped in a standard surgical fashion. The limb was elevated exsanguinated with Esmarch bandage and the tourniquet inflated to 250 mm of mercury for a total tourniquet time of 55 minutes. The FluoroScan was used throughout the case to assess our reduction, and facilitate implant placement. A gentle closed reduction was 1st performed on the patient's left distal radius fracture. Was assessed radiographically before proceeding with the reduction internal fixation. I then made an 8 cm longitudinal incision over the distal aspect of the flexor carpi radialis tendon. The incision was made through the skin to the subcutaneous tissue using a 15. Blade. Then carefully dissected down to flexor carpi radialis tendon she tenotomy scissors. The FCR tendon sheath was then incised longitudinally using tenotomy scissors under direct visualization. The FCR tendon was then retracted ulnarly. I then made a longitudinal incision in the volar forearm fascia through the floor of FCR tendon sheath using tenotomy scissors under direct visualization. I identified the interval between the radial artery and the flexor tendons. This interval was developed further with my index finger, releasing some of the muscular fibers of the flexor pollicis longus. A dull weatlander retractor was then placed. I then created an ulnarly based flap of the pronator quadratus by releasing the radial and distal edges using a 15. Blade. A Blanco elevator was used to elevate the pronator quadratus from the volar surface of the distal radius. This then revealed to us our distal radius fracture. An open reduction was then performed on our distal radius fracture. I then placed a short his standard 3 hole Accu Med volar locking plate on the volar surface of the distal radius. I placed a single K-wire through the distal aspect of the plate and into the distal radius. This was assessed using fluoroscopic images. I was satisfied with the placement of our plate. I then placed 5 X 2.3 mm locking screws/pegs in the distal aspect of the plate and distal radius by 1st drilling bicortically with a 1.8 mm drill bit, measuring with a depth gauge, and placing the appropriate length locking screws/pegs. The placement of our plate and screws was then assessed again using fluoroscopic images. The once satisfied with the placement of the volar locking plate and screws on the distal aspect of the distal radius, the plate was then reduced to the shaft of the radius. I then placed 3 3.5 mm cortical screws to the proximal aspect of the plate and into the shaft of the radius. This was done by 1st drilling bicortically with a 2.8 mm drill bit, measuring with a depth gauge, and placing the appropriate length screw. Final radiographs were then obtained. The DRUJ was assessed and found to be stable on exam. I was satisfied with our reduction and placement of all implants. At this point the wound was irrigated with normal saline. The pronator quadratus was reduced back over the volar locking plate using some 3-0 Vicryl suture material. The tourniquet was then deflated and hemostasis was obtained with a brief period of local pressure and bipolar monopolar electrocautery. The subcutaneous layer was then reapproximated using some 4-0 Vicryl suture, and the skin edges were reapproximated using some 5 0 Prolene suture. The wound was then infiltrated with some 0.5% plain ropivacaine postop pain control. A sterile dressing and a short dorsal splint allowing for active flexion and extension of the digits was applied. The patient appears to have tolerated the procedure well and with no complications. All digits were well vascularized conclusion of the case.
[2023-09-07] MEDS: Lactated Ringers 1,000 ML 80 ML IVCONT (08:00)
== END 2023-09-07 13:42 | disposition home or self-care (01) ==
PROVIDERS: PCP Internal Medicine; Visit Provider Orthopaedic Surgery
PROC: (CPT 25608; principal; 2023-09-07 09:10)
DX: S52.572B Other intraarticular fracture of lower end of left radius, initial encounter for open fracture type I or II (principal); W17.89XA Other fall from one level to another, initial encounter; Y93.89 Activity, other specified; Y92.9 Unspecified place or not applicable; Y99.9 Unspecified external cause status; I10 Essential (primary) hypertension; K74.60 Unspecified cirrhosis of liver; B18.2 Chronic viral hepatitis C; D50.9 Iron deficiency anemia, unspecified; F17.210 Nicotine dependence, cigarettes, uncomplicated; Z79.899 Other long term (current) drug therapy
CPT/HCPCS: 25608; C1713; J0665; J0690; J1100; J2250; J2405; J2704; J2795

== ENCOUNTER → 2023-09-07 07:00 | Outpatient (BNV) | payer OTHER, SELFPAY | PROVIDERS: PCP Internal Medicine; Visit Provider Orthopaedic Surgery | DX: S52.572A Other intraarticular fracture of lower end of left radius, initial encounter for closed fracture (principal) | CPT/HCPCS: 25608 ==

== ENCOUNTER 2023-09-19 10:18 | Outpatient (REF) | payer OTHER, SELFPAY ==
--- NOTE | ~2023-09-19 | XR_ITS ---
EXAMINATION: XR WRIST, LEFT CLINICAL INFORMATION: Pain in left wrist COMPARISON: Left wrist 09/06/2023 TECHNIQUE: PA, lateral, and oblique views of the left wrist. FINDINGS: There has been interval ORIF of comminuted, intra-articular, impacted fracture of the distal radius with interval improvement in alignment. The hardware is intact. Associated soft tissue swelling is again noted. Again noted is avulsion fracture fragments of the ulnar styloid. There is narrowing of the triscaphe joint. Positive ulnar variance. The bones are diffusely demineralized. XR/XR wrist LT min 3V IMPRESSION: Status post ORIF of comminuted, intra-articular, impacted fracture of the distal radius with interval improvement in alignment.
== END 2023-09-19 10:19 | disposition home or self-care (01) ==
LOC: HO.HOSX 10:18
PROVIDERS: Visit Provider Orthopaedic Surgery
DX: S52.532D Colles' fracture of left radius, subsequent encounter for closed fracture with routine healing (principal); B18.2 Chronic viral hepatitis C; W19.XXXD Unspecified fall, subsequent encounter
CPT/HCPCS: 73110; 99212

== ENCOUNTER 2023-09-19 13:55 | Outpatient (AMB) | payer OTHER, SELFPAY ==
--- NOTE | 2023-09-19 14:36 | A.OFFVIS_ITS ---
Intake Visit Reasons: PO RT distal radius ORIF 09/07/23 AR Intake Note: Althea a 73 year old female presents today for her 1st PO RT distal radius ORIF 09/07/23 AR. Dressing removed in office and xrays updated. Patient reports she is doing well, she does not complain of any pain. She states when will she be able to return doing her daily activities. Allergies No Known Allergies Allergy (Verified 09/19/23 14:51) HPI HPI PO RT distal radius ORIF 09/07/23 AR: Details: Althea is a 73 year old right hand dominant woman who presents S/P left distal radius ORIF, DOS: 09/07/23. DOI: 08/29/23 after a fall. She says she is doing well. She denies any pain and is happy with the results of her surgery She would like to know when she can return to more normal activities. [facility] Medical History Hx of gastritis Hiatal hernia Liver cirrhosis Anxiety HTN (hypertension) Hepatitis C Anemia Surgical History History of esophagogastroduodenoscopy (EGD) Hx of cataract surgery Hx of colonoscopy Family History Father Diabetes Paternal Grandmother Diabetes Mother Alzheimer disease Social History Household Members: None Alcohol intake: never Patient Tobacco Use Status: Current everyday Tobacco user Tobacco use type: Cigarette Cigarettes Per Day: 2 Current occupational status: unemployed Review of Systems Const All systems reviewed & are unremarkable except as noted in HPI and below Physical Exam Const General: no acute distress and alert Orientation/consciousness: patient oriented x3 Neuro General: patient oriented x3 Extrem Other: The patient was alert oriented and in no acute distress The incision is healing well with no erythema drainage or evidence of infection. Sutures removed and Steri-Strips applied She can make a fist and extend all her digits She has ~5 degrees of wrist flexion ~10 degrees of wrist extension Pronation: ~80 degrees Supination: ~60 degrees Sensation is intact Cap refill is brisk Radiographs: 3 views of the left wrist were taken and viewed by me today in clinic. They show a distal radius fracture with satisfactory fracture alignment and position of all implants. Psych Appearance: grossly normal Affect: normal affect Attitude: cooperative Assessment & Plan Assessment & Plan (1) Distal radius fracture, left: Code(s): S52.502A - Unspecified fracture of the lower end of left radius, initial encounter for closed fracture Category: Medical Qualifiers: Encounter type: initial encounter Fracture morphology: Colles' Fracture type: closed Qualified Code(s): S52.532A - Colles' fracture of left radius, initial encounter for closed fracture (2) Hepatitis C, chronic: Comment: June, Treated with Mavyret (3 tablets (glecaprevir 100 mg/pibrentasvir 40 mg?per tablet) once daily for 8 weeks Code(s): B18.2 - Chronic viral hepatitis C Category: Medical Plan Assessment & Plan: 1. left distal radius fracture, S/P ORIF DOS: 09/07/23 DOI: 08/29/23 The patient appears to be doing well post-operatively I educated her about the post-operative course She was placed in a velcro wrist splint, to be worn like a cast except for showering, for the next 4 weeks I discussed activity modifications, she is to lift nothing heavier than a cellphone for at least the next 4 weeks She will work on gentle finger & wrist ROM exercises at home, out of her splint. She should avoid any underwater activities for another week, though she may shower starting tomorrow She will follow up in 4 weeks for a ROM check, with X-rays, 3V L wrist Consider possible OT hand therapy that time. Scribed for Valerie Merchant MD by Ferny Ang, certified medical assistant, on 09/19/23 at 3:10 PM, EST. Coding Level of Care Code Global (46929) Diagnoses Closed Colles' fracture of left radius, initial encounter S52.532A Encounter type: initial encounter Fracture morphology: Colles' Fracture type: closed Hepatitis C, chronic B18.2
== END 2023-09-19 15:45 | disposition home or self-care (01) ==
PROVIDERS: PCP Internal Medicine; Visit Provider Orthopaedic Surgery
DX: S52.532A Colles' fracture of left radius, initial encounter for closed fracture (principal); B18.2 Chronic viral hepatitis C
CPT/HCPCS: 99024

== ENCOUNTER 2023-10-17 09:36 | Outpatient (REF) | payer OTHER, SELFPAY ==
--- NOTE | ~2023-10-17 | XR_ITS ---
EXAMINATION: XR WRIST, LEFT CLINICAL INFORMATION: Pain in wrist. COMPARISON: September 19, 2023 TECHNIQUE: PA, lateral, and oblique views of the left wrist. FINDINGS: Redemonstration of ORIF of comminuted, intra-articular, impacted fracture of the distal radius. Hardware appears intact. Alignment maintained. Redemonstration of avulsion fracture fragments of the ulnar styloid. Positive ulnar variance. Diffuse demineralization. Degenerative changes in the triscaphe joint. XR/XR wrist LT min 3V IMPRESSION: Redemonstration of ORIF of comminuted, intra-articular, impacted fracture of the distal radius. Hardware appears intact. Alignment maintained.
== END 2023-10-17 09:37 | disposition home or self-care (01) ==
LOC: HO.HOSX 09:36
PROVIDERS: Visit Provider Orthopaedic Surgery
DX: S52.502D Unspecified fracture of the lower end of left radius, subsequent encounter for closed fracture with routine healing (principal); B18.2 Chronic viral hepatitis C
CPT/HCPCS: 73110; 99212

== ENCOUNTER 2023-10-17 13:51 | Outpatient (AMB) | payer OTHER, SELFPAY ==
--- NOTE | 2023-10-17 13:54 | A.OFFVIS_ITS ---
Vital Signs 10/17/23 14:08 Handedness Right Intake Visit Reasons: PO - Left distal radius ORIF 09/07/23 AR w/ XRay Intake Note: Althea is a 73 year old right hand dominant female who presents today post operatively s/p left distal radius ORIF 09/07/23 AR. Patient reports she has been working on gentle ROM, has not been lifting heavier than her cellphone and has noticed improvement in her healing. She expresses she is having very little pain and has taken Aleve for relief. She has been wearing her splint except for showering and working on ROM. Allergies No Known Allergies Allergy (Verified 10/17/23 14:13) HPI HPI PO - Left distal radius ORIF 09/07/23 AR w/ XRay: Details: Althea is a 73 year old right hand dominant woman who presents S/P left distal radius ORIF, DOS: 09/07/23. DOI: 08/29/23 after a fall. She says she is doing well. She denies any pain and is happy with the results of her surgery. She has been working on her ROM out of her splint. She complains of pain in her lower legs, and she is unsure why. She would like to discuss a possible referral to vascular. [facility] Medical History Hx of gastritis Hiatal hernia Liver cirrhosis Anxiety HTN (hypertension) Hepatitis C Anemia Surgical History History of esophagogastroduodenoscopy (EGD) Hx of cataract surgery Hx of colonoscopy Family History Father Diabetes Paternal Grandmother Diabetes Mother Alzheimer disease Social History Household Members: None Alcohol intake: never Patient Tobacco Use Status: Current everyday Tobacco user Tobacco use type: Cigarette Cigarettes Per Day: 2 Current occupational status: unemployed Review of Systems Const All systems reviewed & are unremarkable except as noted in HPI and below Physical Exam Const General: no acute distress and alert Orientation/consciousness: patient oriented x3 Neuro General: patient oriented x3 Extrem Other: Evaluation of Left Upper Extremity: The patient is alert, oriented, and in no acute distress Neuro: Median, Ulnar, Radial nerves motor and sensory intact and sensation is normal to the tips of all digits Vascular: Cap refill brisk ROM: She can make a fist and extend all her digits She has ~30 degrees of wrist flexion ~45 degrees of wrist extension Full & symmetrical pronation Supination: ~65 degrees compared to 75 degrees on the contralateral side Radiographs: 3 views of the left wrist were taken and viewed by me today in clinic. They show a distal radius fracture with satisfactory fracture alignment and position of all implants with evidence of interval bony healing.. Psych Appearance: grossly normal Affect: normal affect Attitude: cooperative Assessment & Plan Assessment & Plan (1) Distal radius fracture, left: Code(s): S52.502A - Unspecified fracture of the lower end of left radius, initial encounter for closed fracture Category: Medical Qualifiers: Encounter type: initial encounter Fracture morphology: Colles' Fracture type: closed Qualified Code(s): S52.532A - Colles' fracture of left radius, initial encounter for closed fracture (2) Hepatitis C, chronic: Comment: June, Treated with Mavyret (3 tablets (glecaprevir 100 mg/pibrentasvir 40 mg?per tablet) once daily for 8 weeks Code(s): B18.2 - Chronic viral hepatitis C Category: Medical Plan Assessment & Plan: 1. left distal radius fracture, S/P ORIF DOS: 09/07/23 DOI: 08/29/23 The patient appears to be doing well post-operatively I educated her about the post-operative course I told her I want her to stop wearing the Velcro wrist splint except for perhaps when she goes to the grocery store I discussed activity modifications, she is to continue to work on wrist ROM exercises at home, and begin to use her hand f activities as tolerated She is not interested in OT hand therapy. She can follow up p.r.n. Scribed for Valerie Merchant MD by Ferny Ang quality engineer medical device, on 10/17/23 at 2:20 PM, EST. Scribe Plan - Not visible on output: Scribed for Valerie Merchant MD by la Hill scribe, on [ ] at [ ], EST. Coding Level of Care Code Global (66056) Diagnoses Closed Colles' fracture of left radius, initial encounter S52.532A Encounter type: initial encounter Fracture morphology: Colles' Fracture type: closed Hepatitis C, chronic B18.2
== END 2023-10-17 14:32 | disposition home or self-care (01) ==
PROVIDERS: PCP Internal Medicine; Visit Provider Orthopaedic Surgery
DX: S52.532A Colles' fracture of left radius, initial encounter for closed fracture (principal); B18.2 Chronic viral hepatitis C
CPT/HCPCS: 99024

== ENCOUNTER 2024-01-05 08:11 | Outpatient (AMB) | payer OTHER, SELFPAY ==
[2024-01-05 08:19] VITALS: BP 163/87; PULSE 91; BMI 25.1
--- NOTE | 2024-01-05 08:19 | MHC.OFFVIS ---
Vital Signs 01/05/24 08:19 Height 5 ft 2 in Weight 137 lb BMI 25.1 BP 163/87 H Blood Pressure Location Lt brachial Position Sitting Pulse 91 Intake Visit Reasons: Bloody hemorrhoids/ Cirrhosis Intake Note: Patient follow up for bloody hemorrhoids/ cirrhosis Patient cc: painful and discomfort hemorrhoids with some bloody BM, gassy, abdominal bloating also patient start taking memory med on her own. Bait Man Required: No Accompanied by: Self / Same As Patient Allergies No Known Allergies Allergy (Verified 01/05/24 08:20) Medication List - Last Reconciled 01/05/24 by Vladimir Marks MD blood pressure test kit-large As directed carvedilol 3.125 mg PO BID folic acid 1 mg PO DAILY 60 days lisinopril 20 mg PO DAILY pantoprazole (Protonix) 40 mg PO DAILY sucralfate (Carafate) 10 mL PO BID HPI HPI Bloody hemorrhoids/ Cirrhosis: Details: GI clinic visit for this 73 YF with cirrhosis related to chronic hepatitis C infection, Hypertension, anxiety disorder, PVD, history of stomach ulcers referred by Dr Arredondo for evaluation of chronic Hepatitis? C. Patient returns after a hiatus of 15 months - Last clinic visit was in 09/2022 TODAY'S VISIT Patient cc: painful and discomfort hemorrhoids with some bloody BM, gassy, abdominal bloating also patient start taking memory med on her own. Unable to schedule an earlier appt since she was recovering from a broken wrist Complains of abdominal distension with wt gain and ankle edema Lab results reviewed with the patient. PAST VISITS: Anemia resolved and pt was advised to decrease iron to once a day. Wt loss of 10 lbs - does not have an appetite. Colonoscopy results reviewed with the patient. She will finish Hep C treatment in 3-4 days. Denies side effects with medications. Pt was able to pick pulling machine tender the Mavyret 28 days ago and started taking a few weeks ago Thinks she is half way through Notes some diarrhea and thinks its related to eating a lot of grapes. 06/09/22 had EGD with band ligation by Dr Tin BARKSDALE EGD is scheduled on 07/25/22 She was having black stools in the past which has improved. Pt reports she has not been able to pick pulling machine tender the Mavyret. Complains of intermittent fatigue and bloating Complains of intermittent black stools Pt is a poor historian and goes off in tangents (she likes to talk about non medical issues from her past) and needs to be redirected after every few minutes. She was gardening last week for 4 hrs and noted diarrhea with dark stools /? blood in stool [place] better the next day and bleeding stopped. [place] a little dizzy.? Feels Ok today. Last hospitalization was 3 yrs ago. Lab results were reviewed with the patient Had an MRI done a year ago which was normal per patient PAST VISIT: Pt reports being diagnosed with Hep C in 2010 - not treated? yet ? Has noted some abdominal bloating ?Patient complains of fatigue and has difficulty falling asleep Intermittent lower extremity edema Denies dysphagia, heartburn, nausea or vomiting, change in? appetite or weight. ?Has black stools due to taking iron pills - twice? daily. ?Patient denies change in bowel habits, black stools or rectal? bleeding ?Denies past problems with anesthesia, snoring or sleep? apnea. ? Pt reports having passing out spells 2.5 yrs ago - admitted to the [facility] after 4th episode ? Admitted to [facility] after an episode of rectal bleeding. ?Reports being very active all her life. 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. ? Also worked a number of different jobs Patient admits to smoking 3 cigarettes a day and denies EtOH abuse Denies known FH of liver disease, colon polyp ? with Hep C. Son has moved in with her. ?LABS IN [place]:?09/29/21 labs from [facility] were reviewed: ? WBC 5.3, Hemoglobin 11.9, hematocrit 36.6, MCV 80.1, platelet count 129, RDW normal, ? Sodium 139, potassium 4.3, BUN 22, creatinine 0.91, albumin 3.8, bilirubin 0.9, AST 66, ALT 68, alkaline phosphatase 64.? Prothrombin time 11.1 with INR of 1.1, PTT 27, vitamin-D 30 microgram/mL, TSH 2.4 to, vitamin B12 458 ?Echocardiogram: 03/05? showed: ?Conclusions: ?- The left ventricular systolic? function is mild to moderately decreased. ? The visually estimated? ejection fraction is between 40-45%. ?- The apex, apical? inferior, apical lateral, apical septum, and ?mid anteroseptal segments? are akinetic. ?- The left atrium is severely dilated. ?- There? is moderate calcification of the aortic valve. ?- There is moderate? mitral annular calcification. There is mild mitral valve? regurgitation. ?- There is mild tricuspid valve? regurgitation. ?IMAGING STUDIES: 08/2022 ABD US SHOWED: Cirrhotic liver. Question new hypoechoic lesion right lobe measuring maximum 2.7 cm. Follow-up liver MRI recommended. 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 01/19/22 ABD US SHOWED: Cirrhotic appearing liver with a hyperechoic lesion left hepatic lobe likely hemangioma versus focal fatty infiltration. Prominent middle portal vein but no thrombus seen. ?Enlarged spleen with a probable small splenule and trace free fluid surrounding the spleen. ?No gallstones but moderate focal wall thickening seen measuring 0.85 cm. 06/28 abdominal MRI scan? showed: ?IMPRESSION: ? 1. No change in the small 6 mm area of? enhancement in the left lobe ? of the liver. This is an indeterminate? finding. ? 2. Questionable collapse of right breast? implant. ENDOSCOPIC STUDIES: 08/03/22 Colonoscopy showed: One medium sized adenomatous polyp removed Mild edema of colonic folds in the right colon (likely due to cirrhosis with portal hypertension) - random biopsies were obtained. Moderate diverticulosis seen in the entire colon Moderate rectal varices and hemorrhoids on retroflexed exam. Plan:? Repeat Colonoscopy interval based on path results - in 3 years if polyps are adenomatous and 10 years if polyps are hyperplastic. 03/2020 EGD was performed during hospitalization at [facility] after multiple syncopal episodes.? H&H was 5.5/22.4 and patient was transfused 2 units packed RBCs.? EGD showed esophageal varices (which were banded) and gastric antral vascular ectasia Patient was discharged on atenolol 25 mg once a day, iron sulfate 325 mg once a day, atorvastatin 20 mg daily, folic acid 1 mg daily, pantoprazole 40 mg daily. Patient reports having an EGD and a colonoscopy in February 2018 at [facility] by Dr. Valentin. PAST GI HISTORY BY REVIEW OF MEDICAL RECORDS: ?Pt was seen in the GI clinic on 05/13/19 and did not FU with labs and abd US appt. ?OF NOTE: Pt arrived 30 min late for her visit due? to delay in arrival of [facility] transport. She had to leave before her FU visit? and ultrasound could be scheduled since her transportation was waiting Had shortness of breath last July - had the flu which affected? her heart, Hospitalized at [facility] or [facility] for heart issues - worked? up at [facility] EGD and colonoscopy reports were requested REPLACED BY [facility] Medical History Hx of gastritis Hiatal hernia Liver cirrhosis Anxiety HTN (hypertension) Hepatitis C Anemia Surgical History History of esophagogastroduodenoscopy (EGD) Hx of cataract surgery Hx of colonoscopy Family History Father Diabetes Paternal Grandmother Diabetes Mother Alzheimer disease Social History Household Members: None Alcohol intake: never Patient Tobacco Use Status: Current everyday Tobacco user Tobacco use type: Cigarette Cigarettes Per Day: 2 Current occupational status: unemployed Review of Systems Const All systems reviewed & are unremarkable except as noted in HPI and below Physical Exam Vital Signs: Last Vital Signs Pulse 91 01/05/24 08:19 BP 163/87 H 01/05/24 08:19 BMI result Body Mass Index 25.1 Const General: no acute distress Nutritional Appearance: average body habitus Orientation/consciousness: patient oriented x3 Limitations: no limitations HEENT Head: Yes normal to inspection Ears: hearing grossly normal bilaterally Eyes Sclerae: sclerae normal Pupils: Equal, round and reactive pupils present Neck Neck: Yes normal visual inspection Chest Chest palpation & inspection: normal inspection of the chest Resp Effort & Inspection: normal respiratory effort Auscultation: clear to auscultation bilaterally Cardio Palpation: normal PMI Rate: regular rate Rhythm: regular rhythm Heart sounds: S1 normal heart sound present, S2 normal heart sound present and no murmurs GI Inspection: Yes distended (due to ascites) and Yes visible herniation (small umbilical hernia) Palpation (GI): Soft to palpation, nontender and No hepatosplenomegaly present Auscultation: normal bowel sounds Rectal Exam - Female: deferred Skin General skin exam: no rashes or lesions noted Neuro General: patient oriented x3, gait normal and moves all extremities Cranial nerves: Yes Equal, round and reactive pupils present Extrem General: Yes pedal edema Psych Appearance: grossly normal Mental Status: mental status grossly normal Assessment & Plan Assessment & Plan (1) Hepatitis C, chronic: Comment: June, Treated with Mavyret (3 tablets (glecaprevir 100 mg/pibrentasvir 40 mg?per tablet) once daily for 8 weeks Code(s): B18.2 - Chronic viral hepatitis C Category: Medical (2) Hepatic cirrhosis due to chronic hepatitis C infection: Code(s): B18.2 - Chronic viral hepatitis C; K74.60 - Unspecified cirrhosis of liver Category: Medical (3) Iron deficiency anemia: Code(s): D50.9 - Iron deficiency anemia, unspecified Category: Medical (4) History of colon polyps: Comment: 08/03/22 colonoscopy was performed and a 12-15 mm adenomatous polyp was removed from the distal sigmoid colon. Repeat colonoscopy advised in 3 years (due 07/2025). Code(s): Z86.010 - Personal history of colonic polyps Category: Medical (5) Liver lesion, right lobe: Code(s): K76.9 - Liver disease, unspecified Category: Medical (6) Liver lesion, left lobe: Code(s): K76.9 - Liver disease, unspecified Category: Medical (7) Cirrhosis of liver with ascites: Code(s): K74.60 - Unspecified cirrhosis of liver; R18.8 - Other ascites Category: Medical (8) Hemorrhoids, internal, with bleeding: Code(s): K64.8 - Other hemorrhoids Category: Medical Plan 73 YF with chronic hepatitis C (Genotype 1b), Hypertension, CIRRHOSIS OF LIVER DUE TO? CHRONIC HEP C, ANXIETY DISORDER, PVD, history of stomach ulcers seen for initial? evaluation for chronic hepatitis C diagnosed in 2010. MELD score is 8.? Patient denies being? treated for hepatitis-C in the past. Past lab evaluation is suggestive of? compensated cirrhosis with portal hypertension and thrombocytopenia. Hepatitis serologies showed positive Hep B core ab suggestive of past hepatitis B infection (Hep B DNA levels were negative). The? patient had an opportunity to ask questions regarding treatment plan. The?patient expressed understanding and agreement with the above treatment? plan. 06/09 EGD was performed by Dr Castle and showed a small hiatal hernia and grade 2 esophageal varix with a few red gaines which was ligated with 3 rubber bands and treated with hemo spray.? 07/25/22 FU EGD showed?Two columns of grade 1 -2 varices from 30 to 38 cms which flattened on air insufflation and were not amenable to band ligation.? 08/03/22 colonoscopy was performed and a?12-15 mm adenomatous polyp was removed from the distal sigmoid colon. Of note patient was prescribed iron supplement but has not been taking it. New prescription was sent for ferrous sulfate and patient was advised to take it twice a day. Continue treatment with Mavyret (3 tablets (glecaprevir 100 mg/pibrentasvir 40 mg?per tablet) once daily for additional 4 days. 08/08/22 Repeat labs next week after completion of Hep C treatment. 08/2022 ABD US showed question of a new 2.7 cms hypoechoic lesion in the right hepatic lobe. 10/2022 MRI was performed and results as noted. 01/05/24 Complains of abdominal distension with wt gain and ankle edema Pt advised to have labs checked and schedule an urgent MRI - FU of liver lesions She will be scheduled for an urgent diagnostic paracentesis - scheduled 01/12/24 I will start her on diuretics after paracentesis Follow-up in 3-4 weeks after above - scheduled 02/02/24 Orders: Orders Comprehensive Met. Panel Today B18.2 - Chronic viral hepatitis C, K74.60 - Unspecified cirrhosis of liver Vitamin B12 and Folate Today B18.2 - Chronic viral hepatitis C, K74.60 - Unspecified cirrhosis of liver MR abdomen wo/w con Today K76.9 - Liver disease, unspecified US paracentesis abd w/image Today B18.2 - Chronic viral hepatitis C, K74.60 - Unspecified cirrhosis of liver, R18.8 - Other ascites Complete Blood Count Auto Diff Today B18.2 - Chronic viral hepatitis C, K74.60 - Unspecified cirrhosis of liver Vitamin D 25-OH Total Today B18.2 - Chronic viral hepatitis C, K74.60 - Unspecified cirrhosis of liver Prothrombin Time INR Today B18.2 - Chronic viral hepatitis C, K74.60 - Unspecified cirrhosis of liver Medications: New hydrocortisone 2.5% 1 appl [place] BID-QID 30 days PRN 30 grams 2RF hemorrhoids K64.8 - Other hemorrhoids Coding Level of Care Code Est Pt Level 4 (73989) Diagnoses Hepatitis C, chronic B18.2 Hepatic cirrhosis due to chronic hepatitis C infection B18.2; K74.60 Iron deficiency anemia D50.9 History of colon polyps Z86.010 Liver lesion, right lobe K76.9 Liver lesion, left lobe K76.9 Cirrhosis of liver with ascites K74.60; R18.8 Hemorrhoids, internal, with bleeding K64.8 Time Spent (min) 25
== END 2024-01-05 09:07 | disposition home or self-care (01) ==
PROVIDERS: PCP Internal Medicine; Visit Provider Internal Medicine Gastroenterology
DX: B18.2 Chronic viral hepatitis C (principal); K74.60 Unspecified cirrhosis of liver; D50.9 Iron deficiency anemia, unspecified; Z86.010 Personal history of colon polyps; K76.9 Liver disease, unspecified; R18.8 Other ascites; K64.8 Other hemorrhoids
CPT/HCPCS: 99214

== ENCOUNTER → 2024-01-05 08:11 | Outpatient (BNVA) | payer OTHER, SELFPAY | PROVIDERS: PCP Internal Medicine; Visit Provider Internal Medicine Gastroenterology | DX: K64.8 Other hemorrhoids (principal); K74.60 Unspecified cirrhosis of liver; B18.2 Chronic viral hepatitis C; K76.9 Liver disease, unspecified; D50.9 Iron deficiency anemia, unspecified; R18.8 Other ascites; Z86.010 Personal history of colon polyps | CPT/HCPCS: 99212 ==

== ENCOUNTER 2024-01-12 08:22 | Day surgery (SDC) | payer OTHER, SELFPAY ==
--- NOTE | ~2024-01-12 | US_ITS ---
ULTRASOUND GUIDED PARACENTESIS HISTORY: Ascites. Diagnostic and therapeutic drainage. TECHNIQUE: Risks and benefits and possible complications were discussed with the patient and consent form was signed. A safe pocket of ascitic fluid was identified using ultrasound guidance, and the overlying skin was marked. The abdomen prepped and draped in sterile fashion. 1% lidocaine was used as a local anesthetic. Using ultrasound guidance, a 5 fr catheter was placed into the ascitic pocket. 5.0 liters of yellow fluid was removed passively. The catheter was then removed. A few fulfillment representative images from before and after the examination were obtained. The procedure was performed by Silverio Yap PA-C and supervised by Dr. Dias. US/US paracentesis abd w/image IMPRESSION: Ultrasound-guided paracentesis as described above. No immediate complications Electronically signed by: Jacky Dias MD 02/09/2024 01:45 PM EDT
[2024-01-12 08:54] LABS: MANUAL DIFF FLAG NO
[2024-01-12 09:02] LABS: Basophils Percent Auto 0.4 % (0-2); Eosinophils Absolute Auto 0.2 X10*3/uL (0.0-0.4); Eosinophils Percent Auto 3.5 % (0-4); Hematocrit 38.1 % (37.0-47.0); Hemoglobin 12.4 g/dl (12.0-16.0); INTERNATIONAL NORM RATIO 1.1 (0.9-1.1); Imm Gran Abs Auto 0.01 X10*3/uL (0.00-0.03); Imm Gran Pct Auto 0.2 % (0.0-0.4); Lymphocytes Absolute Auto 0.7 X10*3/uL (1.2-4.9); Lymphocytes Percent Auto 14.8 % (20-40); Mean Corpuscular HGB Conc 32.5 g/dl (31.0-35.0); Mean Corpuscular Hemoglobin 27.8 pg (27.0-33.0); Mean Corpuscular Volume 85.4 fL (80.0-98.0); Mean Platelet Volume 10.5 fL (9.4-12.3); Monocytes Absolute Auto 0.5 X10*3/uL (0.1-1.2); Monocytes Percent Auto 10.4 % (2-11); Neutrophils Absolute Auto 3.4 x10*3/uL (2.0-8.3); Neutrophils Percent Auto 70.7 % (45-73); Platelet Count 118 X10*3/uL (160-400); Prothrombin Time 12.7 SEC (10.9-12.4); Red Blood Count 4.46 X10*6/uL (4.20-5.50); Red Cell Distribution Width 14.1 % (11.0-16.0); White Blood Count 4.8 X10*3/uL (4.8-10.8)
[2024-01-12 09:04] LABS: Partial Thromboplastin Time 31.1 SEC (26.0-36.8)
[2024-01-12 09:14] VITALS: BP 145/89; PULSE 85; RESP 14; TEMP 36.1; O2SAT 99; BMI 26.0
[2024-01-12 09:34] LABS: Glucose, Whole Blood 87 mg/dL (60-115)
[2024-01-12 11:05] VITALS: BP 153/79; PULSE 75; RESP 18; TEMP 36.1; O2SAT 99
[2024-01-12] MEDS: Lidocaine HCl 1 % MPF 5 ML VIAL SUBCUT (11:12)
[2024-01-12 11:35] VITALS: BP 170/82; PULSE 70; RESP 18; TEMP 36.4; O2SAT 99
[2024-01-12 12:31] LABS: MN% 90.1 %; PMN% 9.9 %; WBC Peritoneal Fluid 0.173 X10*3/uL
[2024-01-12 12:32] LABS: RBC Peritoneal Fluid < 0.002 X10*6/uL
[2024-01-12 13:07] LABS: BF Shift QC OK YES; Eosinophils Peritoneal Fl 1 %; Lymphocyte Peritoneal Fl 21 %; Man Diluent Bkgrd OK YES; Monocytes Peritoneal Fl 3 %; Neutrophils Peritoneal Fluid 5 %; Other Peritioneal Fl 70 %
[2024-01-15 07:44] LABS: Albumin Peritoneal Fluid 1.3
== END 2024-01-12 11:47 | disposition home or self-care (01) ==
PROVIDERS: Physician Assistant Surgical; PCP Internal Medicine; Visit Provider Internal Medicine Gastroenterology
DX: B18.2 Chronic viral hepatitis C (principal); K74.60 Unspecified cirrhosis of liver; R18.8 Other ascites; R14.0 Abdominal distension (gaseous); I10 Essential (primary) hypertension; F41.9 Anxiety disorder, unspecified; I73.9 Peripheral vascular disease, unspecified; K64.8 Other hemorrhoids; Z56.0 Unemployment, unspecified; D50.9 Iron deficiency anemia, unspecified
CPT/HCPCS: 36415; 49083; 82042; 82947; 85025; 85610; 85730; 89051

== ENCOUNTER → 2024-01-12 09:22 | Outpatient (BNV) | payer OTHER, SELFPAY | PROVIDERS: PCP Internal Medicine; Visit Provider Physician Assistant Surgical | DX: R18.8 Other ascites (principal) | CPT/HCPCS: 49083 ==

== ENCOUNTER 2024-01-17 08:14 | Outpatient (REF) | payer OTHER, SELFPAY ==
--- NOTE | ~2024-01-17 | MR_ITS ---
EXAMINATION: MR ABDOMEN WITHOUT AND WITH CONTRAST CLINICAL INFORMATION: Follow-up liver lesions. COMPARISON: March 13, 2023 TECHNIQUE: MR abdomen was performed without and with use of 6 mL intravenous Gadavist gadolinium contrast. Postcontrast images are performed in multiphase dynamic sequences. Imaging was performed in 3 planes. 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 No pleural or pericardial effusion. Left breast implant. LIVER, GALLBLADDER, AND BILIARY TREE: LIVER AND BILIARY TREE: Cirrhotic morphology of the liver. There are scattered arterial phase enhancing foci which appear to the to background on later phases of contrast which are nonspecific. Previously demonstrated 1.6 cm focus of enhancement in hepatic segment 3 is not conspicuous on the current study. No intra or extrahepatic biliary duct dilatation. The gallbladder is contracted. PANCREAS: No ductal dilatation. SPLEEN: Measures 14.0 cm in sagittal dimension. ADRENAL GLANDS: No adrenal mass. KIDNEYS AND URETERS: The kidneys are symmetric in size and enhancement. No hydronephrosis. No perinephric stranding. GASTROINTESTINAL TRACT: Diffuse bowel wall thickening. Large abdominopelvic ascites. ABDOMINAL WALL: No significant hernia is appreciated. LYMPH NODES: No bulky lymphadenopathy. Extensive mesenteric stranding and edema. 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 Normal caliber abdominal aorta. OTHER: Fibroid uterus. Anasarca. MR/MR abdomen wo/w con IMPRESSION: Nodular cirrhotic fibrotic liver with sequela of portal hypertension. 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 A previously demonstrated 1.6 cm region of arterial phase enhancement in hepatic segment 3 is not conspicuous on the current study likely due to heterogeneous perfusion of the left hepatic lobe. Diffuse bowel wall thickening possibly due to large surrounding ascites. Findings were reviewed and discussed with Chava Alfred RN at 3:00 PM on 01/17/2024. Electronically signed by: Raudel Cordova MD 01/17/2024 03:08 PM EDT
[2024-01-17] MEDS: gadobutroL 7.5 ML VIAL IVPUSH (09:20)
[2024-01-17 09:50] LABS: MANUAL DIFF FLAG NO
[2024-01-17 10:32] LABS: Basophils Percent Auto 0.8 % (0-2); Eosinophils Absolute Auto 0.2 X10*3/uL (0.0-0.4); Eosinophils Percent Auto 4.9 % (0-4); Hematocrit 39.2 % (37.0-47.0); Hemoglobin 12.7 g/dl (12.0-16.0); Imm Gran Abs Auto 0.01 X10*3/uL (0.00-0.03); Imm Gran Pct Auto 0.3 % (0.0-0.4); Lymphocytes Absolute Auto 0.7 X10*3/uL (1.2-4.9); Lymphocytes Percent Auto 18.3 % (20-40); Mean Corpuscular HGB Conc 32.4 g/dl (31.0-35.0); Mean Corpuscular Hemoglobin 27.9 pg (27.0-33.0); Mean Corpuscular Volume 86.2 fL (80.0-98.0); Mean Platelet Volume 11.6 fL (9.4-12.3); Monocytes Absolute Auto 0.4 X10*3/uL (0.1-1.2); Monocytes Percent Auto 10.6 % (2-11); Neutrophils Absolute Auto 2.5 x10*3/uL (2.0-8.3); Neutrophils Percent Auto 65.1 % (45-73); Red Blood Count 4.55 X10*6/uL (4.20-5.50); White Blood Count 3.9 X10*3/uL (4.8-10.8)
[2024-01-17 10:35] LABS: Platelet Count 91 X10*3/uL (160-400)
[2024-01-17 10:47] LABS: INTERNATIONAL NORM RATIO 1.1 (0.9-1.1); Prothrombin Time 13.2 SEC (10.9-12.4)
[2024-01-17 11:02] LABS: Alanine Aminotransferase 29 U/L (0-31); Albumin Level 3.5 g/dL (3.5-5.0); Alkaline Phosphatase 75 U/L (39-117); Anion Gap 12 (12-20); Aspartate Amino Transferase 50 U/L (5-31); Blood Urea Nitrogen 27 mg/dL (9-16); Calcium 8.9 mg/dL (8.4-10.2); Carbon Dioxide 24 mmol/L (22-29); Chloride 112 mmol/L (96-108); Estimated Glomerular Filt Rate > 60; Glucose Random 100 mg/dL (60-115); Potassium 4.2 mmol/L (3.3-5.1); Sodium 144 mmol/L (135-145); Total Protein 7.2 g/dL (6.5-8.0)
[2024-01-17 11:20] LABS: Vitamin D 25-OH Total 16.9 ng/mL (>30)
[2024-01-17 11:30] LABS: Folate 9.6 ng/mL (> or = 4.0); Vitamin B12 553 pg/mL (200-900)
== END 2024-01-17 08:15 | disposition home or self-care (01) ==
LOC: HO.MRI 08:14
PROVIDERS: PCP Internal Medicine; Visit Provider Internal Medicine Gastroenterology
DX: B18.2 Chronic viral hepatitis C (principal); K74.60 Unspecified cirrhosis of liver; K76.9 Liver disease, unspecified
CPT/HCPCS: 36415; 74183; 80053; 82306; 82607; 82746; 85025; 85610; A9585

== ENCOUNTER 2024-02-02 09:22 | Outpatient (AMB) | payer OTHER, SELFPAY ==
--- NOTE | 2024-02-02 09:35 | MHC.OFFVIS ---
Vital Signs 02/02/24 09:52 Height 5 ft 2 in Weight 130 lb BMI 23.8 BP 154/74 H Blood Pressure Location Lt brachial Position Sitting Pulse 94 Intake Visit Reasons: 1 month follow up Intake Note: Patient 1 month follow up for Cirrhosis, lab, US and MRI results. Patient cc: abdominal bloating, bloody hemorrhoids, and feel full with little food. 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: No Accompanied by: Self / Same As Patient Allergies No Known Allergies Allergy (Verified 02/23/24 10:33) Medication List - Last Reconciled 02/02/24 by Vladimir Mraks MD blood pressure test kit-large As directed carvedilol 3.125 mg PO BID furosemide (Lasix) 20 mg PO QAM 30 days hydrocortisone 2.5% 1 appl HI BID-QID PRN 30 days lisinopril 20 mg PO DAILY pantoprazole (Protonix) 40 mg PO DAILY spironolactone 50 mg PO QAM 30 days HPI HPI 1 month follow up: Details: GI clinic visit for this 73 YF with cirrhosis related to chronic hepatitis C infection, Hypertension, anxiety disorder, PVD, history of stomach ulcers seen for FU of cirrhosis. TODAY'S VISIT Patient cc: abdominal bloating, bloody hemorrhoids, and feel full with little food. Wt loss of 12 lbs over the past 4 weeks. Abd distension slightly improved. Taking diuretics Has an appt with her PCP on 05/08/24 PAST VISITS: Patient cc: painful and discomfort hemorrhoids with some bloody BM, gassy, abdominal bloating also patient start taking memory med on her own. Unable to schedule an earlier appt since she was recovering from a broken wrist Complains of abdominal distension with wt gain and ankle edema Lab results reviewed with the patient. Anemia resolved and pt was advised to decrease iron to once a day. Wt loss of 10 lbs - does not have an appetite. Colonoscopy results reviewed with the patient. She will finish Hep C treatment in 3-4 days. Denies side effects with medications. 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 06/09/22 had EGD with band ligation by Dr Tin BARKSDALE EGD is scheduled on 07/25/22 She was having black stools in the past which has improved. Pt reports she has not been able to lemon picker the [place]. Complains of intermittent fatigue and bloating Complains of intermittent black stools Pt is a poor historian and goes off in tangents (she likes to talk about non medical issues from her past) and needs to be redirected after every few minutes. She was gardening last week for 4 hrs and noted diarrhea with dark stools /? blood in stool [place] better the next day and bleeding stopped. [place] a little dizzy.? Feels Ok today. Last hospitalization was 3 yrs ago. Lab results were reviewed with the patient Had an MRI done a year ago which was normal per patient Denies past problems with anesthesia, snoring or sleep? apnea. Pt reports having passing out spells 2.5 yrs ago - admitted to the [facility] after 4th episode Admitted to [facility] after an episode of rectal bleeding. Reports being very active all her life. 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. Also worked a number of different jobs Patient admits to smoking 3 cigarettes a day and denies EtOH abuse Denies known FH of liver disease, colon polyp ? with Hep C and her Son has moved in with her. [facility] labs from [facility] were reviewed: ? WBC 5.3, Hemoglobin 11.9, hematocrit 36.6, MCV 80.1, platelet count 129, RDW normal, ? Sodium 139, potassium 4.3, BUN 22, creatinine 0.91, albumin 3.8, bilirubin 0.9, AST 66, ALT 68, alkaline phosphatase 64.? Prothrombin time 11.1 with INR of 1.1, PTT 27, vitamin-D 30 microgram/mL, TSH 2.4 to, vitamin B12 458 ?Echocardiogram: 03/05? showed: ?Conclusions: ?- The left ventricular systolic? function is mild to moderately decreased. ? The visually estimated? ejection fraction is between 40-45%. ?- The apex, apical? inferior, apical lateral, apical septum, and ?mid anteroseptal segments? are akinetic. ?- The left atrium is severely dilated. ?- There? is moderate calcification of the aortic valve. ?- There is moderate? mitral annular calcification. There is mild mitral valve? regurgitation. ?- There is mild tricuspid valve? regurgitation. ?IMAGING STUDIES: 08/2022 ABD US SHOWED: Cirrhotic liver. Question new hypoechoic lesion right lobe measuring maximum 2.7 cm. Follow-up liver MRI recommended. 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 01/19/22 ABD US SHOWED: Cirrhotic appearing liver with a hyperechoic lesion left hepatic lobe likely hemangioma versus focal fatty infiltration. Prominent middle portal vein but no thrombus seen. ?Enlarged spleen with a probable small splenule and trace free fluid surrounding the spleen. ?No gallstones but moderate focal wall thickening seen measuring 0.85 cm. 06/28 abdominal MRI scan? showed: ?IMPRESSION: ? 1. No change in the small 6 mm area of? enhancement in the left lobe ? of the liver. This is an indeterminate? finding. ? 2. Questionable collapse of right breast? implant. ENDOSCOPIC STUDIES: 08/03/22 Colonoscopy showed: One medium sized adenomatous polyp removed Mild edema of colonic folds in the right colon (likely due to cirrhosis with portal hypertension) - random biopsies were obtained. Moderate diverticulosis seen in the entire colon Moderate rectal varices and hemorrhoids on retroflexed exam. Plan:? Repeat Colonoscopy interval based on path results - in 3 years if polyps are adenomatous and 10 years if polyps are hyperplastic. 03/2020 EGD was performed during hospitalization at [facility] after multiple syncopal episodes.? H&H was 5.5/22.4 and patient was transfused 2 units packed RBCs.? EGD showed esophageal varices (which were banded) and gastric antral vascular ectasia Patient was discharged on atenolol 25 mg once a day, iron sulfate 325 mg once a day, atorvastatin 20 mg daily, folic acid 1 mg daily, pantoprazole 40 mg daily. Patient reports having an EGD and a colonoscopy in February 2018 at [facility] by Dr. Valentin. [facility] Medical History Prolapsed hemorrhoids Hx of gastritis Hiatal hernia Liver cirrhosis Anxiety HTN (hypertension) Hepatitis C Anemia Surgical History History of esophagogastroduodenoscopy (EGD) Hx of cataract surgery Hx of colonoscopy Family History Father Diabetes Paternal Grandmother Diabetes Mother Alzheimer disease Social History Household Members: None Alcohol intake: former Patient Tobacco Use Status: Current everyday Tobacco user Tobacco use type: Cigarette Cigarettes Per Day: 2 Smoked in Last 30 Days: No Use of substances other than those prescribed or required for medical reasons: No Advance Directives: No Advance Directives Information Provided: Yes Do you have a plan to hurt others: No Plan Current occupational status: unemployed Review of Systems Const All systems reviewed & are unremarkable except as noted in HPI and below Physical Exam Vital Signs: Last Vital Signs Pulse 94 02/02/24 09:52 BP 154/74 H 02/02/24 09:52 BMI result Body Mass Index 23.8 Const General: no acute distress and ill appearing (Chronically ill and frail appearing) Nutritional Appearance: average body habitus Orientation/consciousness: patient oriented x3 Limitations: no limitations HEENT Head: Yes normal to inspection Ears: hearing grossly normal bilaterally Eyes Sclerae: sclerae normal Pupils: Equal, round and reactive pupils present Neck Neck: Yes normal visual inspection Chest Chest palpation & inspection: normal inspection of the chest Resp Effort & Inspection: normal respiratory effort Auscultation: clear to auscultation bilaterally Cardio Palpation: normal PMI Rate: regular rate Rhythm: regular rhythm Heart sounds: S1 normal heart sound present, S2 normal heart sound present and no murmurs GI Inspection: Yes distended Palpation (GI): Soft to palpation, nontender and No hepatosplenomegaly present Auscultation: normal bowel sounds Rectal Exam - Female: deferred Skin General skin exam: no rashes or lesions noted Neuro General: patient oriented x3, gait normal and moves all extremities Cranial nerves: Yes Equal, round and reactive pupils present Psych Appearance: grossly normal Mental Status: mental status grossly normal Assessment & Plan Assessment & Plan (1) Hepatitis C, chronic: Comment: June, Treated with Mavyret (3 tablets (glecaprevir 100 mg/pibrentasvir 40 mg?per tablet) once daily for 8 weeks Code(s): B18.2 - Chronic viral hepatitis C Category: Medical (2) History of colon polyps: Comment: 08/03/22 colonoscopy was performed and a 12-15 mm adenomatous polyp was removed from the distal sigmoid colon. Repeat colonoscopy advised in 3 years (due 07/2025). Code(s): Z86.010 - Personal history of colon polyps Category: Medical (3) Liver lesion, right lobe: Code(s): K76.9 - Liver disease, unspecified Category: Medical (4) Liver lesion, left lobe: Code(s): K76.9 - Liver disease, unspecified Category: Medical (5) Cirrhosis of liver with ascites: Code(s): K74.60 - Unspecified cirrhosis of liver; R18.8 - Other ascites Category: Medical Plan 73 YF with chronic hepatitis C (Genotype 1b - diagnosed in 2010), Hypertension, liver cirrhosis due to chronic hepatitis-C, anxiety disorder, peripheral vascular disease, history of stomach ulcers. MELD score is 8.? Patient denies being? treated for hepatitis-C in the past. Past lab evaluation is suggestive of? compensated cirrhosis with portal hypertension and thrombocytopenia. Hepatitis serologies showed positive Hep B core ab suggestive of past hepatitis B infection (Hep B DNA levels were negative). The? patient had an opportunity to ask questions regarding treatment plan. The?patient expressed understanding and agreement with the above treatment? plan. 06/09 EGD was performed by Dr Castle and showed a small hiatal hernia and grade 2 esophageal varix with a few red gaines which was ligated with 3 rubber bands and treated with hemo spray.? 07/25/22 FU EGD showed?Two columns of grade 1 -2 varices from 30 to 38 cms which flattened on air insufflation and were not amenable to band ligation.? 08/03/22 colonoscopy was performed and a?12-15 mm adenomatous polyp was removed from the distal sigmoid colon. Of note patient was prescribed iron supplement but has not been taking it. New prescription was sent for ferrous sulfate and patient was advised to take it twice a day. Continue treatment with Mavyret (3 tablets (glecaprevir 100 mg/pibrentasvir 40 mg?per tablet) once daily for additional 4 days. 08/08/22 Repeat labs next week after completion of Hep C treatment. 08/2022 ABD US showed question of a new 2.7 cms hypoechoic lesion in the right hepatic lobe. 10/2022 MRI was performed and results as noted. 01/05/24 Complains of abdominal distension with wt gain and ankle edema Pt advised to have labs checked and schedule an urgent MRI - FU of liver lesions She will be scheduled for an urgent diagnostic paracentesis - scheduled 01/12/24 I will start her on diuretics after paracentesis 02/02/24 Abd bloating and early satiety with wt loss of 12 lbs over the past 4 weeks. Abd distension slightly improved with diuretics - pt advised to increase furosemide to 20 mg twice daily. If no improvement in ascites with above, I will schedule her for therapeutic paracentesis Follow-up in 3 weeks after above Orders: Orders Alpha Fetoprotein 02/02/24 K74.60 - Unspecified cirrhosis of liver, R18.8 - Other ascites Blood Urea Nitrogen 02/02/24 K74.60 - Unspecified cirrhosis of liver, R18.8 - Other ascites Creatinine 02/02/24 K74.60 - Unspecified cirrhosis of liver, R18.8 - Other ascites Basic Metabolic Panel 02/02/24 K74.60 - Unspecified cirrhosis of liver, R18.8 - Other ascites Hepatitis C Viral Load 02/02/24 K74.60 - Unspecified cirrhosis of liver, R18.8 - Other ascites Medications: Changed From furosemide 20 mg PO QAM 30 days 30 tabs 1RF K74.60 - Unspecified cirrhosis of liver, R18.8 - Other ascites To furosemide (Lasix) 20 mg PO BID 60 tabs 1RF 30 days K74.60 - Unspecified cirrhosis of liver, R18.8 - Other ascites Patient Instructions: Please increase Furosemide (Lasix) to 20 mg twice a day Have labs checked next Coding Level of Care Code Est Pt Level 4 (44145) Diagnoses Hepatitis C, chronic B18.2 History of colon polyps Z86.010 Liver lesion, right lobe K76.9 Liver lesion, left lobe K76.9 Cirrhosis of liver with ascites K74.60; R18.8 Time Spent (min) 21
[2024-02-02 09:52] VITALS: BP 154/74; PULSE 94; BMI 23.8
== END 2024-02-02 10:18 | disposition home or self-care (01) ==
PROVIDERS: PCP Internal Medicine; Visit Provider Internal Medicine Gastroenterology
DX: B18.2 Chronic viral hepatitis C (principal); Z86.0100 Personal history of colon polyps, unspecified; K76.9 Liver disease, unspecified; K74.60 Unspecified cirrhosis of liver; R18.8 Other ascites
CPT/HCPCS: 99214

== ENCOUNTER → 2024-02-02 09:22 | Outpatient (BNVA) | payer OTHER, SELFPAY | PROVIDERS: PCP Internal Medicine; Visit Provider Internal Medicine Gastroenterology | DX: K74.60 Unspecified cirrhosis of liver (principal); B18.2 Chronic viral hepatitis C; R18.8 Other ascites; K76.9 Liver disease, unspecified; Z86.0109 Personal history of other colon polyps | CPT/HCPCS: 99212 ==

== ENCOUNTER 2024-02-08 16:37 | Emergency (ER) | payer OTHER, SELFPAY ==
[2024-02-08] VITALS (7 sets, daily range): BP systolic 149–166; BP diastolic 76–86; PULSE 84–98; RESP 16–20; TEMP 36.4–36.8; O2SAT 97–100; BMI 24.0
[2024-02-08 17:17] LABS: MANUAL DIFF FLAG NO
[2024-02-08 17:21] LABS: Basophils Absolute Auto 0.1 X10*3/uL (0.0-0.2); Basophils Percent Auto 0.7 % (0-2); Eosinophils Absolute Auto 0.2 X10*3/uL (0.0-0.4); Eosinophils Percent Auto 2.2 % (0-4); Hematocrit 39.3 % (37.0-47.0); Hemoglobin 12.9 g/dl (12.0-16.0); Imm Gran Abs Auto 0.02 X10*3/uL (0.00-0.03); Imm Gran Pct Auto 0.3 % (0.0-0.4); Lymphocytes Absolute Auto 0.8 X10*3/uL (1.2-4.9); Lymphocytes Percent Auto 12.1 % (20-40); Mean Corpuscular HGB Conc 32.8 g/dl (31.0-35.0); Mean Corpuscular Hemoglobin 27.9 pg (27.0-33.0); Mean Corpuscular Volume 84.9 fL (80.0-98.0); Mean Platelet Volume 10.4 fL (9.4-12.3); Monocytes Absolute Auto 0.8 X10*3/uL (0.1-1.2); Monocytes Percent Auto 12.1 % (2-11); Neutrophils Absolute Auto 4.9 x10*3/uL (2.0-8.3); Neutrophils Percent Auto 72.6 % (45-73); Platelet Count 177 X10*3/uL (160-400); Red Blood Count 4.63 X10*6/uL (4.20-5.50); Red Cell Distribution Width 14.2 % (11.0-16.0); White Blood Count 6.8 X10*3/uL (4.8-10.8)
[2024-02-08 17:27] LABS: INTERNATIONAL NORM RATIO 1.1 (0.9-1.1)
[2024-02-08 17:36] LABS: Albumin Level 3.4 g/dL (3.5-5.0); Alkaline Phosphatase 110 U/L (39-117); Anion Gap 12 (12-20); Aspartate Amino Transferase 85 U/L (5-31); Bilirubin Direct 0.5 mg/dL (0.0-0.5); Bilirubin Total 1.2 mg/dL (0.0-1.0); Blood Urea Nitrogen 34 mg/dL (9-16); Calcium 9.1 mg/dL (8.4-10.2); Carbon Dioxide 24 mmol/L (22-29); Chloride 110 mmol/L (96-108); Creatinine Clr Calc Pharmacy 34.3; Estimated Glomerular Filt Rate 45; Glucose Random 123 mg/dL (60-115); Lipase 47 U/L (8-78); Potassium 3.9 mmol/L (3.3-5.1); Sodium 142 mmol/L (135-145); Total Protein 7.5 g/dL (6.5-8.0)
[2024-02-08 17:54] LABS: Alanine Aminotransferase 54 U/L (0-31)
[2024-02-08 19:45] LABS: OBS Int Ctl Valid YES; OBS1 NEGATIVE (NEGATIVE)
[2024-02-08] MEDS: Lidocaine HCl 1 % 10 ML VIAL INFILTRATI (20:14)
--- NOTE | 2024-02-08 20:14 | PC.NURSE ---
Provider to bedside for paracentesis, pt tolerating well.
[2024-02-08] MEDS: Albumin Human 25 % 100 ML IV (21:04)
--- NOTE | 2024-02-08 21:06 | PC.NURSE ---
7.35 L drained from abd. Pt no longer distended, pt tolerated procedure well. Albumin hung and infusing without difficulty. VSS.
--- NOTE | 2024-02-08 21:21 | ED.GENADULT ---
HPI - General Adult General Chief complaint: General Medical Stated complaint: rectal bleeding Time Seen by Provider: 02/08/24 18:15 Source: patient Mode of arrival: ambulatory Limitations: no limitations History of Present Illness ED Provider: Dr. Lilly Mims HPI narrative: patient comes to the emergency room complaining of hemorrhoids bleeding and also complaining of diffuse abdominal distention. 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 Marks that she has internal hemorrhoids. Patient states that she was bleeding earlier today but but this time, it nearly self-resolved. Also, patient is known to have cirrhosis, patient had a paracentesis done approximately 2 weeks ago. Patient states that now she is back with more fluid in her abdomen. Patient states that it is so big that she has difficulty breathing and she feels extremely heavy. Patient denies chest pain or shortness of breath. Related Data Home Medications ?Medication ?Instructions ?Recorded ?Confirmed pantoprazole 40 mg tablet,delayed 40 mg PO DAILY 10/28/21 02/02/24 release (Protonix) carvedilol 3.125 mg tablet 3.125 mg PO BID 12/09/21 02/02/24 lisinopril 20 mg tablet 20 mg PO DAILY 12/09/21 02/02/24 blood pressure test kit-large #1 ea 08/08/22 01/12/24 Previous Rx's ?Medication ?Instructions ?Recorded hydrocortisone 2.5 % topical cream 1 appl MA BID-QID PRN hemorrhoids 01/05/24 with perineal applicator 30 days #30 grams spironolactone 50 mg tablet 50 mg PO QAM 30 days #30 tabs 01/16/24 furosemide 20 mg tablet (Lasix) 20 mg PO BID 30 days #60 tabs 02/02/24 Allergies Allergy/AdvReac Type Severity Reaction Status Date / Time No Known Allergies Allergy Verified 02/08/24 16:56 Review of Systems Review of Systems: Constitutional : No Weight loss, No Fever, No Chills, No Night Sweats, No Fatigue, No Malaise ENT/Mouth : No Hearing loss, No Ear Pain, No Nasal Congestion, No Sinus Pain, No Hoarseness, No sore throat, No Rhinorrhea, No Swallowing Difficulty Eyes: No Eye Pain, No Swelling, No Redness, No Foreign Body, No Discharge, No Vision Changes Cardiovascular : No Chest Pain, No SOB, No Dyspnea on Exertion, No Orthopnea, No Edema, No Palpitations Respiratory : No Cough, No Sputum, No Wheezing, No Smoke Exposure, No Dyspnea Gastrointestinal : No Nausea, No Vomiting, No Diarrhea, No Constipation, Complaining of abdominal distention and rectal pain with bleeding hemorrhoids Genitourinary : no irregular bleeding, No Dysuria, No Urinary Frequency, No Hematuria, No Urinary Incontinence, No Urgency, No Flank Pain, No Urinary Flow Changes, No Hesitancy Musculoskeletal : No joint pain, No Myalgias, No Joint Swelling Skin : No Skin Lesions, No rash Neuro : No Weakness, No Numbness, No Paresthesias, No Loss of Consciousness, No Dizziness, No Headache Psych : No Anxiety/Panic, No Depression, No SI/HI/AH/VH, No Social Issues, Heme/Lymph: No Bruising, No Bleeding,No Lymphadenopathy Endocrine : No Polyuria, No Polydipsia, No Temperature Intolerance PMFSH Past Medical History Medical History Hx of gastritis Hiatal hernia Liver cirrhosis Anxiety HTN (hypertension) Hepatitis C Anemia Surgical History History of esophagogastroduodenoscopy (EGD) Hx of cataract surgery Hx of colonoscopy Family History Family History Father Diabetes Paternal Grandmother Diabetes Mother Alzheimer disease Social History Social History Household Members: None Alcohol intake: former Patient Tobacco Use Status: Current everyday Tobacco user Tobacco use type: Cigarette Cigarettes Per Day: 2 Smoked in Last 30 Days: Yes Use of substances other than those prescribed or required for medical reasons: No Advance Directives: No Advance Directives Information Provided: No Do you have a plan to hurt others: No Plan Current occupational status: unemployed Physical Exam ED Vital Signs: Vital Signs - 24 hr 02/08/24 16:51 02/08/24 18:30 02/08/24 19:36 Temperature 97.6 F 98.2 F 97.6 F Pulse Rate 97 98 85 Respiratory Rate 20 18 16 Blood Pressure 155/86 H 154/76 H 160/79 H Pulse Oximetry 97 97 99 Oxygen Delivery Method Room Air Room Air Room Air 02/08/24 21:07 02/08/24 21:15 Temperature 97.5 F 98.2 F Pulse Rate 88 84 Respiratory Rate 18 16 Blood Pressure 166/86 H 149/81 H Pulse Oximetry 99 100 Oxygen Delivery Method Room Air Room Air BMI result Body Mass Index 24.0 Const Other: Appearance: Alert. Oriented X3. No acute distress. Eyes: Pupils equal, round and reactive to light. ENT: Pharynx normal. Neck: Normal inspection. Neck supple. No lymph nodes noted. No crepitus CVS: Normal heart rate and rhythm. Pulses normal. Normal S1 and S2 Respiratory: No respiratory distress. Breath sounds normal. No Wheezing. No rales Abdomen: Soft , significantly distended, rectal exam shows both internal and external hemorrhoids, not actively bleeding. Some of the external hemorrhoid seem thrombosed Skin: Skin warm and dry. Normal skin color. Normal skin turgor. Extremities: No lower extremity edema. No Lacerations. No Rash Neuro: Oriented X 3. No motor deficit. No sensory deficit. Moving all extremities. No slurred speech. CN 2 through 12 grossly intact Psych: calm, cooperative, normal affect Medications Administered Generic Name Dose Route Start Last Admin Trade Name Freq PRN Reason Stop Dose Admin Albumin Human 100 mls @ 100 mls/hr 02/08/24 20:45 02/08/24 21:04 Kedbumin 25 % IV 02/08/24 22:44 100 mls/hr Q1H LOYD Administration Discontinued Medications Generic Name Dose Route Start Last Admin Trade Name Freq PRN Reason Stop Dose Admin Lidocaine HCl 10 ml 02/08/24 19:54 02/08/24 20:14 Lidocaine Hcl 1 % 10 Ml Vial INFILTRATI 02/08/24 19:55 10 ml ONCE ONE Administration Procedures Paracentesis Time Out Performed: Yes Local Anesthetic: lidocaine 1% Amount of anesthesia used (mL): 9 Fluid: clear Post Procedure Exam: awake, alert, normal BP, normal HR and normal SpO2 Patient Tolerated Procedure: well and no complications Complications: none Medical Decision Making Medical Decision Making MDM Narrative: my interpretation of labs, at baseline hematology and chemistry, at baseline LFTs, INR 1.1 - patient has a significant amount of ascites in the abdomen. Discussed with the patient that we could remove the fluid and then she can follow-up with gastroenterology. Also, patient was given the choice of lancing the external hemorrhoids and removing the blood clot. However, patient states that she is concerned that she will be uncomfortable after the paracentesis, and would prefer to have the hemorrhoids done another day. Patient will follow-up with general surgery. - patient tolerated well the paracentesis, 7350 mL of ascites were removed. Fluid looked clear. Patient did not have any abdominal pain or symptoms to suspect SBP - patient received a dose of albumin due to the large amount of ascites that was removed - patient remains hemodynamically stable. Systolic blood pressure in the 150s. - Overall, patient feeling much better and breathing more comfortable. Differential Diagnosis Differential Diagnoses: The differential diagnosis associated with the presentation includes ( Cirrhosis, ascites, internal hemorrhoids, external hemorrhoids) Admission/Observation Consideration of admission/observation: Escalation of care including admission/observation considered ( given patient's symptoms and large amount of paracentesis, observation was considered) Lab Data MDM Lab Attestation statement: I reviewed the patient's lab results. 02/08/24 17:13 02/08/24 17:13 Labs: Lab Results 02/08/24 02/08/24 Range/Units 17:13 19:40 WBC 6.8 (4.8-10.8) X10*3/uL RBC 4.63 (4.20-5.50) X10*6/uL Hgb 12.9 (12.0-16.0) g/dl Hct 39.3 (37.0-47.0) % MCV 84.9 (80.0-98.0) fL MCH 27.9 (27.0-33.0) pg MCHC 32.8 (31.0-35.0) g/dl RDW 14.2 (11.0-16.0) % Plt Count 177 D (160-400) X10*3/uL MPV 10.4 (9.4-12.3) fL Immature Gran % (Auto) 0.3 (0.0-0.4) % Neut % (Auto) 72.6 (45-73) % Lymph % (Auto) 12.1 L (20-40) % [place] % (Auto) 12.1 H (2-11) % Eos % (Auto) 2.2 (0-4) % Baso % (Auto) 0.7 (0-2) % Lymph # (Auto) 0.8 L (1.2-4.9) X10*3/uL [place] # (Auto) 0.8 (0.1-1.2) X10*3/uL Eos # (Auto) 0.2 (0.0-0.4) X10*3/uL Baso # (Auto) 0.1 (0.0-0.2) X10*3/uL Abs Immat Gran (auto) 0.02 (0.00-0.03) X10*3/uL Absolute Neuts (auto) 4.9 (2.0-8.3) x10*3/uL Absolute Nucleated RBC 0.000 (0.0-0.012) X10*3/uL Nucleated RBC % (auto) 0.0 (0.0-0.2) /100WBC PT 13.0 H (10.9-12.4) SEC INR 1.1 (0.9-1.1) Sodium 142 (135-145) mmol/L Potassium 3.9 (3.3-5.1) mmol/L Chloride 110 H (96-108) mmol/L Carbon Dioxide 24 (22-29) mmol/L Anion Gap 12 (12-20) BUN 34 H (9-16) mg/dL Creatinine 1.17 (0.5-1.4) mg/dL Estim Creat Clear Calc 34.3 Estimated GFR 45 Random Glucose 123 H (60-115) mg/dL Calcium 9.1 (8.4-10.2) mg/dL Total Bilirubin 1.2 H (0.0-1.0) mg/dL Direct Bilirubin 0.5 (0.0-0.5) mg/dL AST 85 H (5-31) U/L ALT 54 H (0-31) U/L Alkaline Phosphatase 110 (39-117) U/L Total Protein 7.5 (6.5-8.0) g/dL Albumin 3.4 L (3.5-5.0) g/dL Lipase 47 (8-78) U/L Stool Occult Blood NEGATIVE (NEGATIVE) Critical Care Time Critical Care Time Critical Care Time: Yes Total Critical Care Time: 60 Attestation: I have personally provided critical care time. Time includes review of lab data, radiology results, discussion with consultants, and monitoring for potential decompensation. Intervention performed as documented. Discharge Plan Discharge Clinical Impression: Bleeding hemorrhoids, Abdominal ascites Patient Disposition: Home, Self-Care Instructions: Paracentesis (DC), Ascites (ED), Hemorrhoids (ED) Prescriptions: No Action spironolactone 50 mg tablet 50 mg PO QAM 30 Days Qty: 30 1RF lisinopril 20 mg tablet 20 mg PO DAILY carvedilol 3.125 mg tablet 3.125 mg PO BID Rx Instructions: must administer with a meal/food pantoprazole [Protonix] 40 mg tablet,delayed release (DR/EC) 40 mg PO DAILY furosemide [Lasix] 20 mg tablet 20 mg PO BID 30 Days Qty: 60 1RF (DME) blood pressure test kit-large Kit See Rx Instructions .ROUTE DIRECTED Qty: 1 Rx Instructions: As directed hydrocortisone 2.5 % cream with perineal applicator 1 appl MA BID-QID PRN (Reason: hemorrhoids) 30 Days Qty: 30 2RF Referrals: Luis Alfredo Randolph MD [Physician] - 02/09/24 Print Language: Upper Sorbian
--- NOTE | 2024-02-08 21:53 | PC.NURSE ---
Second bag of albumin to not be given per MD Mims verbal order. BP remains stable, pt to be dc after first bag of albumin finished.
== END 2024-02-08 23:32 | disposition home or self-care (01) ==
PROVIDERS: Emergency Provider Emergency Medicine; PCP Internal Medicine
DX: K64.8 Other hemorrhoids (principal); R18.8 Other ascites; K62.5 Hemorrhage of anus and rectum; Z79.899 Other long term (current) drug therapy
CPT/HCPCS: 36415; 80048; 80076; 82272; 83690; 85025; 85610; 96365; 99284; 99285; J2003; P9047

== ENCOUNTER 2024-02-21 10:54 | Outpatient (AMB) | payer OTHER, MEDICAID, SELFPAY ==
--- NOTE | 2024-02-21 10:55 | MHC.OFFVIS ---
Vital Signs 02/21/24 11:05 Height 5 ft 3 in Weight 130 lb BMI 23.0 Intake Visit Reasons: rectal bleeding, hemorrhoids Intake Note: This patient presents for [facility] emergency department follow-up for rectal bleeding, hemorrhoids. Pt c/o; reports pain, unable sit for prolong periods of time, reports rectal bleeding. Loom Mechanic Required: No Accompanied by: Self / Same As Patient Allergies No Known Allergies Allergy (Verified 02/21/24 11:05) Medication List - Last Reconciled 02/21/24 by Luis Alfredo Randolph MD blood pressure test kit-large As directed carvedilol 3.125 mg PO BID furosemide (Lasix) 20 mg PO BID 30 days hydrocortisone 2.5% 1 appl ME BID-QID PRN 30 days lisinopril 20 mg PO DAILY pantoprazole (Protonix) 40 mg PO DAILY spironolactone 50 mg PO QAM 30 days HPI HPI rectal bleeding, hemorrhoids: Details: 73-year-old female referred for hemorrhoid issues. She has known chronic liver disease with cirrhosis, hepatitis-C. She has had severe ascites and had undergone paracentesis twice She describes problems with the hemorrhoids. She says that these hemorrhoids prolapse frequently and she says she would have some bleeding periodically. She describes severe discomfort with her ascites. She gets short of breath easily from this and has difficulty getting around She is being followed by Dr. Marks of Gastroenterology. [facility] Medical History (Updated 02/21/24 @ 11:17 by Luis Alfredo Randolph MD) Prolapsed hemorrhoids Hx of gastritis Hiatal hernia Liver cirrhosis Anxiety HTN (hypertension) Hepatitis C Anemia Surgical History History of esophagogastroduodenoscopy (EGD) Hx of cataract surgery Hx of colonoscopy Family History Father Diabetes Paternal Grandmother Diabetes Mother Alzheimer disease Social History Household Members: None Alcohol intake: former Patient Tobacco Use Status: Current everyday Tobacco user Tobacco use type: Cigarette Cigarettes Per Day: 2 Current occupational status: unemployed Review of Systems Const Denies chills, Denies fever(s) and Reports weakness Card Denies chest pain, Reports dyspnea and Reports dyspnea on exertion Resp Denies cough, Reports dyspnea and Reports dyspnea on exertion GI Reports hematochezia and Denies change in bowel habits Denies hematuria Musc Denies back pain and Denies limited range of motion Neuro Denies focal weakness, Denies convulsions and Reports weakness Psych Denies depression and Denies mood swings Physical Exam Const Other: Frail looking but able to ambulate slowly General: comfortable and no acute distress Orientation/consciousness: patient oriented x3 Neck Neck: Yes no lymphadenopathy Resp Other: Some shortness of breath when speaking Auscultation: clear to auscultation bilaterally Cardio Rhythm: regular rhythm GI Other: Very protuberant abdomen with ascites Rectal exam shows prolapsing internal and external hemorrhoids, no bleeding Palpation (GI): Soft to palpation, nontender and no guarding Neuro General: patient oriented x3 Assessment & Plan Assessment & Plan (1) Prolapsed hemorrhoids: Code(s): K64.8 - Other hemorrhoids Category: Medical Plan: She has prolapse and edema of her hemorrhoids. I explained to her that treatment for this is not surgical as this is consequence of her chronic liver disease and cirrhosis. I explained to her that control of her portal hypertension we will be alcaraz to control of her hemorrhoid symptoms She will benefit from periodic paracentesis as well. I explained to her that I will arrange for her to follow up with the paediatric physiotherapist for control of her ascites and chronic liver disease. She understands the plan. Coding Level of Care Code New Pt Level 3 (78822) Diagnoses Prolapsed hemorrhoids K64.8
[2024-02-21 11:05] VITALS: BMI 23.0
== END 2024-02-21 11:44 | disposition home or self-care (01) ==
PROVIDERS: PCP Internal Medicine; Visit Provider Surgery
DX: K64.8 Other hemorrhoids (principal)
CPT/HCPCS: 99203

== ENCOUNTER → 2024-02-21 10:54 | Outpatient (BNVA) | payer OTHER, SELFPAY | PROVIDERS: PCP Internal Medicine; Visit Provider Surgery | DX: K64.8 Other hemorrhoids (principal); K74.60 Unspecified cirrhosis of liver; B19.20 Unspecified viral hepatitis C without hepatic coma | CPT/HCPCS: 99202 ==

== ENCOUNTER 2024-02-23 10:25 | Inpatient (IN) | payer OTHER, SELFPAY ==
--- NOTE | ~2024-02-23 | US_ITS ---
ULTRASOUND GUIDED PARACENTESIS HISTORY: Ascites. Diagnostic and therapeutic. TECHNIQUE: Risks and benefits and possible complications were discussed with the patient and consent form was signed. A safe pocket of ascitic fluid was identified using ultrasound guidance, and the overlying skin was marked. The abdomen prepped and draped in sterile fashion. 1% lidocaine was used as a local anesthetic. Using ultrasound guidance, a 5 fr catheter was placed into the ascitic pocket. 6.3 liters of yellow fluid was removed passively. The catheter was then removed. A sample was sent for laboratory analysis. A few medical field representative images from before and after the examination were obtained. The procedure was performed by Silverio Yap PA-C and supervised by Dr. Dias. US/US paracentesis abd w/image IMPRESSION: Ultrasound-guided paracentesis as described above. No immediate complications Electronically signed by: Jacky Dias MD 02/27/2024 11:06 AM [facility] [place] Workstation: [id number]
--- NOTE | ~2024-02-23 | XR_ITS ---
EXAMINATION: XR CHEST CLINICAL INFORMATION: dyspnea COMPARISON: None available. TECHNIQUE: Frontal view of the chest was obtained. FINDINGS: Pulmonary reticular pattern. Prominence of the interstitial markings. No pleural effusion. No pneumothorax. Cardiomediastinal silhouette demonstrates a round apex. Calcified plaque thoracic aorta. Mild multilevel thoracic spondylosis. XR/XR chest 1V IMPRESSION: Mild interstitial edema in the correct clinical settings. Probable hypertensive cardiomyopathy. Electronically signed by: Aashish Doyle MD 02/23/2024 12:01 PM [facility]
[2024-02-23 10:32] VITALS: BP 139/80; PULSE 95; RESP 18; TEMP 36.3; BMI 23.3
--- NOTE | 2024-02-23 10:43 | ECG_ITS ---
Test Reason : dyspnea Blood Pressure : / mmHG Vent. Rate : 089 BPM Atrial Rate : 089 BPM P-R Int : 146 ms QRS Dur : 082 ms QT Int : 346 ms P-R-T Axes : 026 -17 067 degrees QTc Int : 420 ms Normal sinus rhythm with sinus arrhythmia Moderate voltage criteria for LVH, may be normal variant ( R in aVL , Jaylon product ) Anteroseptal infarct (cited on or before 04-JUL-2022) Abnormal ECG When compared with ECG of 04-JUL-2022 13:48, Premature supraventricular complexes are no longer Present Questionable change in initial forces of Anterior leads Nonspecific T wave abnormality, worse in Anterior leads Referred By: Rosa Elena Savage Electronically Signed By:WILFRID PLATT MD
[2024-02-23 10:48] VITALS: BP 145/92; PULSE 91; RESP 20; O2SAT 100
[2024-02-23 11:05] LABS: Basophils Absolute Auto 0.1 X10*3/uL (0.0-0.2); Basophils Percent Auto 0.9 % (0-2); Eosinophils Absolute Auto 0.2 X10*3/uL (0.0-0.4); Eosinophils Percent Auto 2.2 % (0-4); Hematocrit 39.4 % (37.0-47.0); Hemoglobin 12.5 g/dl (12.0-16.0); Imm Gran Abs Auto 0.03 X10*3/uL (0.00-0.03); Imm Gran Pct Auto 0.4 % (0.0-0.4); Lymphocytes Absolute Auto 0.7 X10*3/uL (1.2-4.9); Lymphocytes Percent Auto 9.9 % (20-40); MANUAL DIFF FLAG NO; Mean Corpuscular HGB Conc 31.7 g/dl (31.0-35.0); Mean Corpuscular Hemoglobin 27.4 pg (27.0-33.0); Mean Corpuscular Volume 86.2 fL (80.0-98.0); Mean Platelet Volume 10.8 fL (9.4-12.3); Monocytes Absolute Auto 0.6 X10*3/uL (0.1-1.2); Neutrophils Absolute Auto 5.4 x10*3/uL (2.0-8.3); Neutrophils Percent Auto 77.6 % (45-73); Platelet Count 170 X10*3/uL (160-400); Red Blood Count 4.57 X10*6/uL (4.20-5.50); Red Cell Distribution Width 14.7 % (11.0-16.0); White Blood Count 6.9 X10*3/uL (4.8-10.8)
[2024-02-23 11:17] LABS: Ammonia 33 umol/L (13-55); INTERNATIONAL NORM RATIO 1.2 (0.9-1.1); Prothrombin Time 13.5 SEC (10.9-12.4)
--- NOTE | 2024-02-23 11:19 | ED.GENADULT ---
HPI - General Adult General Chief complaint: Abdominal Pain Stated complaint: Abd pain, SOB Time Seen by Provider: 02/23/24 11:03 Source: patient and old records reviewed Mode of arrival: EMS Limitations: no limitations History of Present Illness ED Provider: FITO OLIVO narrative: 73 yo female with PMH of hep C cirrhosis with varices and recurrent paracentesis, anxiety, HTN, not on thinners who just had 5L removed by IR 01/11 and 7.35L on 02/07 in the ED. She presents today with c/o distention and tight abdomen but no abdmoninal pain other than she feels it is tight, no n/v fevers, has chronic loose stools. She feels short of breath now due to the swelling. She sees Dr. Marks from GI. She denies GIB symptoms. MD complaint: ascites Onset (ago): day(s) (worsening since 02/09) Location: abdomen Radiation: non-radiation Severity: moderate Quality: other (tight) Pain Consistency: constant Relieving factors: none Exacerbating factors: movement Associated symptoms: loss of appetite and shortness of breath Treatments prior to arrival: none Related Data Home Medications ?Medication ?Instructions ?Recorded ?Confirmed pantoprazole 40 mg tablet,delayed 40 mg PO DAILY 10/28/21 02/21/24 release (Protonix) carvedilol 3.125 mg tablet 3.125 mg PO BID 12/09/21 02/21/24 lisinopril 20 mg tablet 20 mg PO DAILY 12/09/21 02/21/24 blood pressure test kit-large #1 ea 08/08/22 02/21/24 Previous Rx's ?Medication ?Instructions ?Recorded hydrocortisone 2.5 % topical cream 1 appl DE BID-QID PRN hemorrhoids 01/05/24 with perineal applicator 30 days #30 grams spironolactone 50 mg tablet 50 mg PO QAM 30 days #30 tabs 01/16/24 furosemide 20 mg tablet (Lasix) 20 mg PO BID 30 days #60 tabs 02/02/24 lidocaine HCl 4 % topical ointment 1 ea topical .T.i.d. PRN To 02/21/24 (AsperFlex (lidocaine HCl)) perianal area #100 grams Allergies Allergy/AdvReac Type Severity Reaction Status Date / Time No Known Allergies Allergy Verified 02/23/24 10:33 Review of Systems Review of Systems: Constitutional : No Fever, No Chills, pos Fatigue, pos poor appetite ENT/Mouth : No sore throat, No Rhinorrhea Eyes: No Eye Pain, No Swelling, No Redness Cardiovascular : No Chest Pain, pos SOB, No Dyspnea on Exertion Respiratory : No Cough, No Sputum Gastrointestinal : No Nausea, No Vomiting, No Diarrhea, No abdominal Pain, pos abdominal swelling Genitourinary : No Dysuria, No Urinary Frequency, No Hematuria, Musculoskeletal : No joint pain, No Myalgias, No Joint Swelling Skin : No Skin Lesions, No rash Neuro : No Weakness, No Numbness, No Dizziness, no Headache Psych : No Anxiety/Panic, No Depression All other systems reviewed and are negative [facility] Past Medical History Attestation statement: The following information was validated with the patient. Source: old records reviewed Medical History Prolapsed hemorrhoids Hx of gastritis Hiatal hernia Liver cirrhosis Anxiety HTN (hypertension) Hepatitis C Anemia Surgical History History of esophagogastroduodenoscopy (EGD) Hx of cataract surgery Hx of colonoscopy Family History Family History Father Diabetes Paternal Grandmother Diabetes Mother Alzheimer disease Social History Social History Household Members: None Alcohol intake: former Patient Tobacco Use Status: Current everyday Tobacco user Tobacco use type: Cigarette Cigarettes Per Day: 2 Smoked in Last 30 Days: No Use of substances other than those prescribed or required for medical reasons: No Advance Directives: No Advance Directives Information Provided: Yes Do you have a plan to hurt others: No Plan Current occupational status: unemployed Physical Exam ED Vital Signs: Vital Signs - 24 hr 02/23/24 10:32 02/23/24 10:48 02/23/24 12:16 Temperature 97.3 F Pulse Rate 95 91 Respiratory Rate 18 20 Blood Pressure 139/80 145/92 H 131/80 Pulse Oximetry 100 Oxygen Delivery Method Room Air Room Air 02/23/24 13:49 Temperature 97.8 F Pulse Rate 86 Respiratory Rate 16 Blood Pressure 131/80 Pulse Oximetry 99 Oxygen Delivery Method Room Air BMI result Body Mass Index 23.3 Appearance: Alert. Oriented X3. No acute distress. she is minimally confused on when she had last paracentesis Eyes: Pupils equal, round and reactive to light. ENT: Pharynx normal. Neck: Normal inspection. Neck supple. CVS: Normal heart rate and rhythm. Pulses normal. Respiratory: No respiratory distress. Breath sounds normal. Abdomen: distended, large volume ascites, has excoriated scratch gaines on abdomen Skin: Skin warm and dry. pale skin color. Normal skin turgor. Extremities: No lower extremity edema. No calf ttp Neuro: Oriented X 3. No motor deficit. No sensory deficit. Course Course Course Narrative: + UTI suspect infection IV ceftriaxone ordered plan for IR 2pm Reevaluation(s) Reevaluation #1: lactic acidosis is from chronic liver disease and not infection or severe sepsis 203pm albumin already ordered Reevaluation #2: 6L removal from IR IR team knows her well and even feels she is a little confused at this time will request admission Medications Administered Discontinued Medications Generic Name Dose Route Start Last Admin Trade Name Camila PRN Reason Stop Dose Admin Ceftriaxone Sodium 1 gm 02/23/24 13:04 02/23/24 13:50 Ceftriaxone Sodium 1 Gm Vial IVPUSH 02/23/24 13:05 1 gm ONCE ONE Administration Furosemide 20 mg 02/23/24 12:06 02/23/24 12:16 Furosemide 20 Mg/2 Ml Vial IVPUSH 02/23/24 12:07 20 mg ONCE ONE Administration Protocol Medical Decision Making Medical Decision Making [facility] Narrative: 73 yo female with PMH of hep C cirrhosis with varices and recurrent paracentesis, anxiety, HTN, not on thinners here with c/o recurrent ascites now feels more dyspneic at this time denies fevers, n/v has loose stools at baseline. She is not confused alert and oriented x 3. She denies fevers. She notes this has been accumulating since 02/09 - which is about 15 days post last paracentesis. She previously made it about 27 days between her other paracentesis. She reports compliance with medications. She came today because she felt it was affecting her breathing - labs, CXR, EKG, paracentesis ordered , no pain or systemic symptoms to suggest SBP Differential Diagnosis Differential Diagnoses: The differential diagnosis associated with the presentation includes large volume ascites, no abdominal pain fevers - WBC count to suspect SBP Admission/Observation Consideration of admission/observation: Escalation of care including admission/observation considered request to admit given her mild encephalopathy and UA Consult Healthcare Provider Management of the patient was discussed with: Hospitalist (will admit) Lab Data MDM Lab Attestation statement: I reviewed the patient's lab results. 02/23/24 10:59 02/23/24 12:10 Labs: Lab Results 02/23/24 02/23/24 02/23/24 Range/Units 10:58 10:59 12:10 WBC 6.9 (4.8-10.8) X10*3/uL RBC 4.57 (4.20-5.50) X10*6/uL Hgb 12.5 (12.0-16.0) g/dl Hct 39.4 (37.0-47.0) % MCV 86.2 (80.0-98.0) fL MCH 27.4 (27.0-33.0) pg MCHC 31.7 (31.0-35.0) g/dl RDW 14.7 (11.0-16.0) % Plt Count 170 (160-400) X10*3/uL MPV 10.8 (9.4-12.3) fL Immature Gran % (Auto) 0.4 (0.0-0.4) % Neut % (Auto) 77.6 H (45-73) % Lymph % (Auto) 9.9 L (20-40) % [place] % (Auto) 9.0 (2-11) % Eos % (Auto) 2.2 (0-4) % Baso % (Auto) 0.9 (0-2) % Lymph # (Auto) 0.7 L (1.2-4.9) X10*3/uL [place] # (Auto) 0.6 (0.1-1.2) X10*3/uL Eos # (Auto) 0.2 (0.0-0.4) X10*3/uL Baso # (Auto) 0.1 (0.0-0.2) X10*3/uL Abs Immat Gran (auto) 0.03 (0.00-0.03) X10*3/uL Absolute Neuts (auto) 5.4 (2.0-8.3) x10*3/uL Absolute Nucleated RBC 0.000 (0.0-0.012) X10*3/uL Nucleated RBC % (auto) 0.0 (0.0-0.2) /100WBC PT 13.5 H (10.9-12.4) SEC INR 1.2 H (0.9-1.1) Sodium 137 (135-145) mmol/L Potassium 5.1 D (3.3-5.1) mmol/L Chloride 112 H (96-108) mmol/L Carbon Dioxide 16 L (22-29) mmol/L Anion Gap 14 (12-20) BUN 32 H (9-16) mg/dL Creatinine 1.29 (0.5-1.4) mg/dL Estim Creat Clear Calc 31.1 Estimated GFR 41 Random Glucose 110 (60-115) mg/dL Lactic Acid (0.5-2.0) mmol/L Calcium 8.5 D (8.4-10.2) mg/dL Magnesium 2.8 H (1.6-2.6) mg/dL Total Bilirubin 1.2 H (0.0-1.0) mg/dL Direct Bilirubin 0.4 (0.0-0.5) mg/dL AST 110 H (5-31) U/L ALT 53 H (0-31) U/L Alkaline Phosphatase 178 H (39-117) U/L Ammonia 33 (13-55) umol/L B-Natriuretic Peptide 270 H (<100) pg/mL Total Protein 7.5 (6.5-8.0) g/dL Albumin 3.1 L (3.5-5.0) g/dL Lipase 38 (8-78) U/L Urine Color Urine Appearance Urine pH (5.0-9.0) Ur Specific [place] (1.005-1.025) Urine Protein (Neg-Trace) mg/dL Urine Glucose (UA) (Negative) mg/dL Urine Ketones (Negative) mg/dL Urine Blood (Negative) Urine Nitrite (Negative) Ur Leukocyte Esterase (Negative) Urine RBC (0-2) /HPF Urine WBC (0-5) /HPF Ur Squamous Epith Cells (0-2) /HPF Urine Bacteria (None Seen) Hyaline Casts (0-2) /LPF Influenza Type A (PCR) NEGATIVE (Negative) Influenza Type B (PCR) NEGATIVE (Negative) RSV RNA Qual (PCR) NEGATIVE (Negative) SARS-CoV-2 RNA (RT-PCR) NEGATIVE (Negative) 02/23/24 02/23/24 Range/Units 12:52 13:36 WBC (4.8-10.8) X10*3/uL RBC (4.20-5.50) X10*6/uL Hgb (12.0-16.0) g/dl Hct (37.0-47.0) % MCV (80.0-98.0) fL MCH (27.0-33.0) pg MCHC (31.0-35.0) g/dl RDW (11.0-16.0) % Plt Count (160-400) X10*3/uL MPV (9.4-12.3) fL Immature Gran % (Auto) (0.0-0.4) % Neut % (Auto) (45-73) % Lymph % (Auto) (20-40) % [place] % (Auto) (2-11) % Eos % (Auto) (0-4) % Baso % (Auto) (0-2) % Lymph # (Auto) (1.2-4.9) X10*3/uL [place] # (Auto) (0.1-1.2) X10*3/uL Eos # (Auto) (0.0-0.4) X10*3/uL Baso # (Auto) (0.0-0.2) X10*3/uL Abs Immat Gran (auto) (0.00-0.03) X10*3/uL Absolute Neuts (auto) (2.0-8.3) x10*3/uL Absolute Nucleated RBC (0.0-0.012) X10*3/uL Nucleated RBC % (auto) (0.0-0.2) /100WBC PT (10.9-12.4) SEC INR (0.9-1.1) Sodium (135-145) mmol/L Potassium (3.3-5.1) mmol/L Chloride (96-108) mmol/L Carbon Dioxide (22-29) mmol/L Anion Gap (12-20) BUN (9-16) mg/dL Creatinine (0.5-1.4) mg/dL Estim Creat Clear Calc Estimated GFR Random Glucose (60-115) mg/dL Lactic Acid 3.0 H* (0.5-2.0) mmol/L Calcium (8.4-10.2) mg/dL Magnesium (1.6-2.6) mg/dL Total Bilirubin (0.0-1.0) mg/dL Direct Bilirubin (0.0-0.5) mg/dL AST (5-31) U/L ALT (0-31) U/L Alkaline Phosphatase (39-117) U/L Ammonia (13-55) umol/L B-Natriuretic Peptide (<100) pg/mL Total Protein (6.5-8.0) g/dL Albumin (3.5-5.0) g/dL Lipase (8-78) U/L Urine Color Dark Yellow Urine Appearance Cloudy Urine pH 5.5 (5.0-9.0) Ur Specific [place] 1.020 (1.005-1.025) Urine Protein Trace (Neg-Trace) mg/dL Urine Glucose (UA) Negative (Negative) mg/dL Urine Ketones Negative (Negative) mg/dL Urine Blood Negative (Negative) Urine Nitrite Positive H (Negative) Ur Leukocyte Esterase Large (3+) H (Negative) Urine RBC 0-2 (0-2) /HPF Urine WBC >50 H (0-5) /HPF Ur Squamous Epith Cells 0-2 (0-2) /HPF Urine Bacteria 4+ (None Seen) Hyaline Casts 0-2 (0-2) /LPF Influenza Type A (PCR) (Negative) Influenza Type B (PCR) (Negative) RSV RNA Qual (PCR) (Negative) SARS-CoV-2 RNA (RT-PCR) (Negative) Independent Interpretation I performed an independent interpretation of an: EKG, Plain X-Ray (mild pulm edema) and Ultrasound Interpretation: Rate: 89 Rhythm: NSR [place]: left, LVH Normal P waves. Normal LUCIA. Normal QRS complex. ST T wave : inverted t wave aVL, no CHALO qTC: 420 prior studies: no change from prior The study has been interpreted contemporaneously by me. . Radiology Impression Discussion of test interpretation with radiology: I have reviewed the radiologist's reading. Discharge Plan Discharge Clinical Impression: Abdominal ascites, Acute UTI, Encephalopathy acute Patient Disposition: Admitted As Inpatient Prescriptions: No Action spironolactone 50 mg tablet 50 mg PO QAM 30 Days Qty: 30 1RF lisinopril 20 mg tablet 20 mg PO DAILY carvedilol 3.125 mg tablet 3.125 mg PO BID Rx Instructions: must administer with a meal/food pantoprazole [Protonix] 40 mg tablet,delayed release (DR/EC) 40 mg PO DAILY furosemide [Lasix] 20 mg tablet 20 mg PO BID 30 Days Qty: 60 1RF (DME) blood pressure test kit-large Kit See Rx Instructions .ROUTE DIRECTED Qty: 1 Rx Instructions: As directed hydrocortisone 2.5 % cream with perineal applicator 1 appl DE BID-QID PRN (Reason: hemorrhoids) 30 Days Qty: 30 2RF AsperFlex (lidocaine HCl) 4 % ointment 1 ea topical .T.i.d. PRN (Reason: To perianal area) Qty: 100 0RF Print Language: U[place]ayan
--- NOTE | 2024-02-23 11:33 | PC.NURSE ---
xray being completed at this time. plan of care ongoing.
[2024-02-23 11:34] LABS: B Type Natriuretic Peptide 270 pg/mL (<100)
[2024-02-23 11:43] LABS: Influenza A PCR NEGATIVE (Negative); Influenza B PCR NEGATIVE (Negative); Resp Syncy Virus RNA Qual PCR NEGATIVE (Negative); SARS COV2 PCR INHOUSE NEGATIVE (Negative)
[2024-02-23 12:16] VITALS: BP 131/80
[2024-02-23] MEDS: Furosemide 20 MG/2 ML VIAL IVPUSH (12:16)
--- NOTE | 2024-02-23 12:20 | PC.NURSE ---
medication administered per provider order. effectiveness pending. pt aware UA is needed - will obtain when able.
[2024-02-23 12:45] LABS: Albumin Level 3.1 g/dL (3.5-5.0); Alkaline Phosphatase 178 U/L (39-117); Anion Gap 14 (12-20); Bilirubin Direct 0.4 mg/dL (0.0-0.5); Bilirubin Total 1.2 mg/dL (0.0-1.0); Blood Urea Nitrogen 32 mg/dL (9-16); Calcium 8.5 mg/dL (8.4-10.2); Carbon Dioxide 16 mmol/L (22-29); Chloride 112 mmol/L (96-108); Creatinine Clr Calc Pharmacy 31.1; Estimated Glomerular Filt Rate 41; Glucose Random 110 mg/dL (60-115); Lipase 38 U/L (8-78); Magnesium 2.8 mg/dL (1.6-2.6); Potassium 5.1 mmol/L (3.3-5.1); Sodium 137 mmol/L (135-145); Total Protein 7.5 g/dL (6.5-8.0)
--- NOTE | 2024-02-23 12:47 | PC.NURSE ---
provider requesting IR to be contacted in regards to ETA for paracentesis to be completed. IR called - ETA unknown at this time. nursing pilot supervisor states they will tiger ED provider when ETA is known. Dr. Savage notified/aware. pt otherwise continues to rest in no apparent distress. sitting upright to promote patent airway. pt speaking in full/clear sentences. no sob/wob noted. respirations even/unlabored at this time. plan of care ongoing. call saunders placed within reach.
[2024-02-23 12:59] LABS: Appearance Urine Cloudy; Color Urine Dark Yellow; Glucose Urine UA Negative (Negative); Leukocyte Esterase Urine Large (3+) (Negative); Nitrite Urine Positive (Negative); PH 5.5 (5.0-9.0); UMIC TRIGGER UACC YES; Urine Blood Negative (Negative); Urine Ketones Negative (Negative); Urine Protein Trace mg/dL (Neg-Trace)
[2024-02-23 13:18] LABS: Bacteria Urine 4+ (None Seen); Hyaline Casts Urine 0-2 /LPF (0-2); RBC Urine 0-2 /HPF (0-2); Squamous Epithelial Cell Urine 0-2 /HPF (0-2); UACC Culture Trigger YES; WBC Urine >50 /HPF (0-5)
[2024-02-23 13:24] LABS: Alanine Aminotransferase 53 U/L (0-31); Aspartate Amino Transferase 110 U/L (5-31)
[2024-02-23 13:49] VITALS: BP 131/80; PULSE 86; RESP 16; TEMP 36.6; O2SAT 99
[2024-02-23] MEDS: cefTRIAXone sodium 1 GM VIAL IVPUSH (13:50)
--- NOTE | 2024-02-23 13:51 | PC.NURSE ---
vss and up to date. nsr on the tree driller. pt ambulates to the restroom w/ 1:1 assistance. unsteady gait noted. no sob/wob noted. resp even/unlabored while ambulating. cultures/lactic obtained/sent to lab. abx administered per provider order. pt continues to wait to go to IR at this time. plan of care ongoing. call saunders placed within reach.
--- NOTE | 2024-02-23 14:06 | PC.NURSE ---
pt being transported to IR at this time.
[2024-02-23 14:30] LABS: Cancel Lactic Acid Canceled
--- NOTE | 2024-02-23 15:09 | PM.PROC ---
Brief Operative Note Date of procedure: 02/23/24 Pre-op diagnosis: Ascites Post-op diagnosis: same Procedure: US Paracentesis 6.3 L serous fluid removed. 50 g albumin ordered. No immediate complications.
[2024-02-23] MEDS: Lidocaine HCl 1 % MPF 5 ML VIAL SUBCUT (15:30)
[2024-02-23 15:38] LABS: MN% 90.6 %; PMN% 9.4 %; WBC Peritoneal Fluid 0.098 X10*3/uL
[2024-02-23] MEDS: Albumin Human 25 % 100 ML IV ×4 (15:39→18:34)
[2024-02-23 15:40] LABS: RBC Peritoneal Fluid < 0.002 X10*6/uL
--- NOTE | 2024-02-23 16:12 | PHA.MEDREC ---
Addendum entered by Pako Mello [facility] 02/23/24 16:34: MED REC CHECKED BY [facility] Original Note: Pharmacy Consult ? Medication Reconciliation Pharmacy has completed the medication reconciliation. Spoke to patient to confirm med list. Patient states she no longer takes Furosemide 20 mg , and Pantoprazole 40 mg.last time she took her medication was 02/22/24
--- NOTE | 2024-02-23 16:20 | P.HPHOSP_ITS ---
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 She recently had paracentesis by IR on 01/11 and 02/07 with 5 and 7L removed respectively. In the emergency department she underwent paracentesis with removal of 6.3 L of ascitic fluid. No evidence of SBP. The rest of her workup was largely unremarkable with the exception of urinalysis which was consistent with a UTI and elevated lactic acid of 3.0. She was also to have some confusion which is different from her baseline. She denies any dysuria, nausea, vomiting. Her shortness of breath and abdominal distention have improved since having paracentesis. Due to confusion with associated UTI she was treated with IV ceftriaxone and will be admitted for further management. Review of Systems 2 Review of Systems: Yes all other systems are reviewed and are negative Constitutional: Constitutional: Denies chills and Denies fever(s) Cardiovascular: Cardiovascular: Denies chest pain, Denies palpitations and Denies dyspnea Respiratory: Respiratory: Denies cough and Denies dyspnea Gastrointestinal: Gastrointestinal: Denies abdominal pain, Denies nausea and Denies vomiting Endocrine: Endocrine: Denies palpitations [facility] Medical History Prolapsed hemorrhoids Hx of gastritis Hiatal hernia Liver cirrhosis Anxiety HTN (hypertension) Hepatitis C Anemia Family History Father Diabetes Paternal Grandmother Diabetes Mother Alzheimer disease Surgical History History of esophagogastroduodenoscopy (EGD) Hx of cataract surgery Hx of colonoscopy Social History Household Members: None Alcohol intake: former Patient Tobacco Use Status: Current everyday Tobacco user Tobacco use type: Cigarette Cigarettes Per Day: 2 Smoked in Last 30 Days: No Use of substances other than those prescribed or required for medical reasons: No Advance Directives: No Advance Directives Information Provided: Yes Do you have a plan to hurt others: No Plan Current occupational status: unemployed Meds Allergies Allergy/AdvReac Type Severity Reaction Status Date / Time No Known Allergies Allergy Verified 02/23/24 10:33 Active Medications: Current Medications Acetaminophen (Acetaminophen 325 Mg Tablet) 650 mg PO Q6H PRN PRN Reason: Pain, Mild (Pain Scale 1-3), fever or headache Calcium Carbonate (Calcium Carbonate 750 Mg Tab.Chew) 750 mg PO Q4H PRN PRN Reason: Heartburn Albumin Human (Kedbumin 25 %) 100 mls @ 100 mls/hr IV Q1H LOYD Stop: 02/23/24 17:14 Melatonin (Melatonin 3 Mg Tablet) 3 mg PO BEDTIME PRN PRN Reason: Insomnia Nicotine Polacrilex (Nicotine Polacrilex 2 Mg Gum) 2 mg BUCCAL Q2H PRN PRN Reason: Nicotine Cravings Ondansetron HCl (Ondansetron Hcl 4 Mg/2 Ml Vial) 4 mg IVPUSH Q8H PRN PRN Reason: Nausea and Vomiting Polyethylene Glycol (Polyethylene Glycol 3350 17 Gm Powd.Pack) 17 gm PO DAILY PRN PRN Reason: Constipation Home Medications ?Medication ?Instructions ?Recorded ?Confirmed ?Last Taken ?Type carvedilol 3.125 mg tablet 3.125 mg PO BID 12/09/21 02/23/24 02/22/24 History lisinopril 20 mg tablet 20 mg PO BEDTIME 12/09/21 02/23/24 02/22/24 History blood pressure test kit-large #1 ea 08/08/22 02/21/24 Unknown History lidocaine HCl 4 % topical ointment 1 ea topical TID PRN To perianal 02/23/24 02/23/24 Unknown History (AsperFlex (lidocaine HCl)) area spironolactone 50 mg tablet 50 mg PO DAILY 02/23/24 02/23/24 02/22/24 History Physical Exam 2 Vital Signs and Narrative: Vital Signs: Last Vital Signs Temp 97.8 F 02/23/24 13:49 Pulse 86 02/23/24 13:49 Resp 16 02/23/24 13:49 BP 131/80 02/23/24 13:49 Pulse Ox 99 02/23/24 13:49 O2 Del Method Room Air 02/23/24 13:49 BMI result Body Mass Index 23.3 Const: General: cooperative, comfortable, no acute distress, alert and awake Nutritional Appearance: thin Orientation/consciousness: patient oriented x3 Resp: Effort & Inspection: normal respiratory effort, able to speak in complete sentences, no respiratory distress and no use of accessory muscles A uscultation: clear to auscultation bilaterally Cardio: Rate: regular rate GI: Inspection: No distended Palpation (GI): Soft to palpation and nontender Neuro: General: patient oriented x3, moves all extremities and CN's II-XI intact bilaterally Extrem: Other: trace leg edema Results Labs 02/23/24 10:59 02/23/24 12:10 Labs: Laboratory Results - last 24 hr 02/23/24 02/23/24 02/23/24 10:58 10:59 12:10 MCV 86.2 MCH 27.4 MCHC 31.7 RDW 14.7 Plt Count 170 MPV 10.8 Immature Gran % (Auto) 0.4 Neut % (Auto) 77.6 H Lymph % (Auto) 9.9 L Greer % (Auto) 9.0 Eos % (Auto) 2.2 Baso % (Auto) 0.9 Lymph # (Auto) 0.7 L [place] # (Auto) 0.6 Eos # (Auto) 0.2 Baso # (Auto) 0.1 Abs Immat Gran (auto) 0.03 Absolute Neuts (auto) 5.4 Absolute Nucleated RBC 0.000 Nucleated RBC % (auto) 0.0 PT 13.5 H INR 1.2 H Anion Gap 14 Estim Creat Clear Calc 31.1 Estimated GFR 41 Random Glucose 110 Lactic Acid Calcium 8.5 D Magnesium 2.8 H Total Bilirubin 1.2 H Direct Bilirubin 0.4 AST 110 H ALT 53 H Alkaline Phosphatase 178 H Ammonia 33 B-Natriuretic Peptide 270 H Total Protein 7.5 Albumin 3.1 L Lipase 38 Urine Color Urine Appearance Urine pH Ur Specific [place] Urine Protein Urine Glucose (UA) Urine Ketones Urine Blood Urine Nitrite Ur Leukocyte Esterase Urine RBC Urine WBC Ur Squamous Epith Cells Urine Bacteria Hyaline Casts Peritoneal WBC Peritoneal RBC Influenza Type A (PCR) NEGATIVE Influenza Type B (PCR) NEGATIVE RSV RNA Qual (PCR) NEGATIVE SARS-CoV-2 RNA (RT-PCR) NEGATIVE 02/23/24 02/23/24 02/23/24 12:52 13:36 14:30 MCV MCH MCHC RDW Plt Count MPV Immature Gran % (Auto) Neut % (Auto) Lymph % (Auto) [place] % (Auto) Eos % (Auto) Baso % (Auto) Lymph # (Auto) [place] # (Auto) Eos # (Auto) Baso # (Auto) Abs Immat Gran (auto) Absolute Neuts (auto) Absolute Nucleated RBC Nucleated RBC % (auto) PT INR Anion Gap Estim Creat Clear Calc Estimated GFR Random Glucose Lactic Acid 3.0 H* Calcium Magnesium Total Bilirubin Direct Bilirubin AST ALT Alkaline Phosphatase Ammonia B-Natriuretic Peptide Total Protein Albumin Lipase Urine Color Dark Yellow Urine Appearance Cloudy Urine pH 5.5 Ur Specific [place] 1.020 Urine Protein Trace Urine Glucose (UA) Negative Urine Ketones Negative Urine Blood Negative Urine Nitrite Positive H Ur Leukocyte Esterase Large (3+) H Urine RBC 0-2 Urine WBC >50 H Ur Squamous Epith Cells 0-2 Urine Bacteria 4+ Hyaline Casts 0-2 Peritoneal WBC 0.098 Peritoneal RBC < 0.002 Influenza Type A (PCR) Influenza Type B (PCR) RSV RNA Qual (PCR) SARS-CoV-2 RNA (RT-PCR) Imaging Radiologist's Impressions: Impressions Chest X-Ray 02/23/24 11:30 IMPRESSION: Mild interstitial edema in the correct clinical settings. Probable hypertensive cardiomyopathy. Electronically signed by: Aashish Doyle MD 02/23/2024 12:01 PM [facility] [place] Assessment and Plan (1) Encephalopathy acute: Status: Acute (2) Acute UTI: Status: Acute (3) Abdominal ascites: Qualifiers: Ascites type: other type Qualified Code(s): R18.8 - Other ascites Status: Acute Plan This is a 73 year old female with history of liver cirrhosis due to chronic hepatitis-C, hypertension, anxiety, peptic ulcer disease presents to the emergency department with shortness of breath and abdominal distention found to have recurrent ascites, UTI and encephalopathy Acute toxic metabolic encephalopathy Due to UTI Ammonia normal no asterixis on exam, no evidence of hepatic encephalopathy Treat underlying infection Acute UTI no evidence of sepsis IV ceftriaxone Urine culture pending, blood cultures pending Recurrent symptomatic ascites Due to underlying liver cirrhosis s/p paracentesis with removal of 6.3L of fluid post-procedure albumin ordered by IR. BP stable no evidence of sbp fluid culture pending GI plans to start on scheduled outpatient paracentesis acute lactic acidosis not due to sepsis due to underlying liver disease acute hyperchloremic metabolic acidosis follow BMP liver cirrhosis with recurrent ascites & h/o esophageal varices s/p banding continue aldactone, coreg HTN hold lisinopril to prevent post procedure hypotension can resume in am if bp remains stable hemorrhoids continue rectal hydrocortisone tobacco dependence smoking cessation advised smokes 2 cigarettes daily NRT dvt ppx - mechanical devices HCP - son Giorgio code status - full code Patient will likely require 2 midnight stay in the hospital for management of acute toxic metabolic encephalopathy due to underlying UTI for close monitoring of mental status as well as IV antibiotics Quality Stroke Does the patient have a stroke diagnosis?: No VTE Prior VTE?: No VTE Risk Level:: Medical - moderate - high VTE Device Contraindication: N/A - Device Ordered VTE Drug Contraindication: Treatment Not Indicated
[2024-02-23 16:24] LABS: Neutrophils Peritoneal Fluid 9 %
[2024-02-23 16:25] LABS: BF Shift QC OK YES; Lymphocyte Peritoneal Fl 9 %; Monocytes Peritoneal Fl 14 %; Other Peritioneal Fl 68 %
--- NOTE | 2024-02-23 17:32 | PC.NURSE ---
checked with SNOW Watts about Albumin. Keep orders the same, 4 bags total as ordered
[2024-02-23 17:33] VITALS: PULSE 78; RESP 18; O2SAT 99
[2024-02-23 20:10] VITALS: BP 167/79; PULSE 88; RESP 16; TEMP 36.9; O2SAT 98
[2024-02-23] MEDS: carvediloL 3.125 MG TABLET PO (21:36)
[2024-02-24 04:00] VITALS: BP 109/58; PULSE 75; RESP 16; TEMP 36.2; O2SAT 94
[2024-02-24 06:44] LABS: Alanine Aminotransferase 33 U/L (0-31); Albumin Level 3.5 g/dL (3.5-5.0); Alkaline Phosphatase 136 U/L (39-117); Anion Gap 14 (12-20); Aspartate Amino Transferase 75 U/L (5-31); Bilirubin Direct 0.5 mg/dL (0.0-0.5); Blood Urea Nitrogen 37 mg/dL (9-16); Calcium 8.4 mg/dL (8.4-10.2); Carbon Dioxide 19 mmol/L (22-29); Chloride 113 mmol/L (96-108); Creatinine Clr Calc Pharmacy 28.9; Estimated Glomerular Filt Rate 37; Glucose Random 105 mg/dL (60-115); Potassium 4.8 mmol/L (3.3-5.1); Sodium 141 mmol/L (135-145); Total Protein 6.2 g/dL (6.5-8.0)
[2024-02-24 07:34] LABS: Albumin Peritoneal Fluid 0.7; Glucose Peritoneal Fluid 128
[2024-02-24 07:56] VITALS: BP 112/70; PULSE 82; RESP 18; TEMP 36.7; O2SAT 100
[2024-02-24 08:26] VITALS: BP 112/70; PULSE 82
[2024-02-24] MEDS: carvediloL 3.125 MG TABLET PO ×2 (08:26→21:24)
[2024-02-24] MEDS: Spironolactone 25 MG TABLET 50 MG PO (08:26)
[2024-02-24] MEDS: Hydrocortisone 2.5 % Rectal Cr 30 GM TUBE 1 APPL PR (09:46)
--- NOTE | 2024-02-24 11:16 | MHC.CM.PN ---
PT REPORTS SHE LIVES AT HOME, HER SON LIVES WITH HER SHE HAS NO DME AND NO SERVICES SHE REPORTS SHE HAS COMPLETED A WILL/ADVANCED CARE PLANNING WITH HER ATTY COPY OF HCP REQUESTED SHE REPORTS HER PCP IS DR IRIZARRY IMM DELIVERED DCP: HOME NO SERVICES SON TO TRANSPORT
--- NOTE | 2024-02-24 11:17 | P.PNIM_ITS ---
Subjective Subjective Date of Service: 02/24/24 Review of Systems Follow up liver cirrhosis, ascites no pain or discomfort Physical Exam 2 Vital Signs: Vital Signs: Last Vital Signs Temp 98.1 F 02/24/24 07:56 Pulse 82 02/24/24 08:26 Resp 18 02/24/24 07:56 BP 112/70 02/24/24 08:26 Pulse Ox 100 02/24/24 07:56 O2 Del Method Room Air 02/24/24 07:56 BMI result Body Mass Index 23.3 Objective Data Active Medications Acetaminophen (Acetaminophen 325 Mg Tablet) 650 mg PO Q6H PRN PRN Reason: Pain, Mild (Pain Scale 1-3), fever or headache Calcium Carbonate (Calcium Carbonate 750 Mg Tab.Chew) 750 mg PO Q4H PRN PRN Reason: Heartburn Carvedilol (Carvedilol 3.125 Mg Tablet) 3.125 mg PO BID [facility]; Protocol Last Admin: 02/24/24 08:26 Dose: 3.125 mg Documented By: SRAVANI Ceftriaxone Sodium (Ceftriaxone Sodium 1 Gm Vial) 1 gm IVPUSH Q24H [facility] Hydrocortisone (Hydrocortisone 2.5 % Rectal Cr 30 Gm Tube) 1 appl [place] QID PRN PRN Reason: hemorrhoids Last Admin: 02/24/24 09:46 Dose: 1 appl Documented By: SRAVANI Lidocaine HCl (Lidocaine 4 % Cream Kit) 1 appl TOPICAL TID PRN PRN Reason: To perianal area Melatonin (Melatonin 3 Mg Tablet) 3 mg PO BEDTIME PRN PRN Reason: Insomnia Nicotine Polacrilex (Nicotine Polacrilex 2 Mg Gum) 2 mg BUCCAL Q2H PRN PRN Reason: Nicotine Cravings Ondansetron HCl (Ondansetron Hcl 4 Mg/2 Ml Vial) 4 mg IVPUSH Q8H PRN PRN Reason: Nausea and Vomiting Polyethylene Glycol (Polyethylene Glycol 3350 17 Gm Powd.Pack) 17 gm PO DAILY PRN PRN Reason: Constipation Spironolactone (Spironolactone 25 Mg Tablet) 50 mg PO DAILY [facility]; Protocol Last Admin: 02/24/24 08:26 Dose: 50 mg Documented By: SRAVANI Labs 02/23/24 10:59 02/24/24 05:58 Labs: Laboratory Results - last 24 hr 02/23/24 02/23/24 02/23/24 10:58 10:59 12:10 Hold Purple Top PT 13.5 H INR 1.2 H Anion Gap 14 Estim Creat Clear Calc 31.1 Estimated GFR 41 Random Glucose 110 Lactic Acid Calcium 8.5 D Magnesium 2.8 H Total Bilirubin 1.2 H Direct Bilirubin 0.4 AST 110 H ALT 53 H Alkaline Phosphatase 178 H Ammonia 33 B-Natriuretic Peptide 270 H Total Protein 7.5 Albumin 3.1 L Lipase 38 Urine Color Urine Appearance Urine pH Ur Specific [place] Urine Protein Urine Glucose (UA) Urine Ketones Urine Blood Urine Nitrite Ur Leukocyte Esterase Urine RBC Urine WBC Ur Squamous Epith Cells Urine Bacteria Hyaline Casts Peritoneal WBC Peritoneal RBC Periton Neutrophils Periton Lymphocytes Peritoneal Monocytes Peritoneal Other Cells Peritoneal Albumin Peritoneal Glucose Influenza Type A (PCR) NEGATIVE Influenza Type B (PCR) NEGATIVE RSV RNA Qual (PCR) NEGATIVE SARS-CoV-2 RNA (RT-PCR) NEGATIVE 02/23/24 02/23/24 02/23/24 12:52 13:36 14:30 Hold Purple Top PT INR Anion Gap Estim Creat Clear Calc Estimated GFR Random Glucose Lactic Acid 3.0 H* Calcium Magnesium Total Bilirubin Direct Bilirubin AST ALT Alkaline Phosphatase Ammonia B-Natriuretic Peptide Total Protein Albumin Lipase Urine Color Dark Yellow Urine Appearance Cloudy Urine pH 5.5 Ur Specific [place] 1.020 Urine Protein Trace Urine Glucose (UA) Negative Urine Ketones Negative Urine Blood Negative Urine Nitrite Positive H Ur Leukocyte Esterase Large (3+) H Urine RBC 0-2 Urine WBC >50 H Ur Squamous Epith Cells 0-2 Urine Bacteria 4+ Hyaline Casts 0-2 Peritoneal WBC 0.098 Peritoneal RBC < 0.002 Periton Neutrophils 9 Periton Lymphocytes 9 Peritoneal Monocytes 14 Peritoneal Other Cells 68 Peritoneal Albumin 0.7 Peritoneal Glucose 128 Influenza Type A (PCR) Influenza Type B (PCR) RSV RNA Qual (PCR) SARS-CoV-2 RNA (RT-PCR) 02/24/24 05:58 Hold Purple Top SEE NOTE PT INR Anion Gap 14 Estim Creat Clear Calc 28.9 Estimated GFR 37 Random Glucose 105 Lactic Acid Calcium 8.4 Magnesium Total Bilirubin 1.0 Direct Bilirubin 0.5 AST 75 H ALT 33 H Alkaline Phosphatase 136 H Ammonia B-Natriuretic Peptide Total Protein 6.2 L Albumin 3.5 Lipase Urine Color Urine Appearance Urine pH Ur Specific [place] Urine Protein Urine Glucose (UA) Urine Ketones Urine Blood Urine Nitrite Ur Leukocyte Esterase Urine RBC Urine WBC Ur Squamous Epith Cells Urine Bacteria Hyaline Casts Peritoneal WBC Peritoneal RBC Periton Neutrophils Periton Lymphocytes Peritoneal Monocytes Peritoneal Other Cells Peritoneal Albumin Peritoneal Glucose Influenza Type A (PCR) Influenza Type B (PCR) RSV RNA Qual (PCR) SARS-CoV-2 RNA (RT-PCR) Microbiology Microbiology Results: Microbiology 02/23/24 14:30 Gram Stain - Final Ascites Fluid Anaerobic Culture - Preliminary No growth to date. Body Fluid Culture - Preliminary No growth to date. Assessment and Plan (1) Cirrhosis of liver with ascites: Status: Acute Plan This is a 73 year old female with history of liver cirrhosis due to chronic hepatitis-C, hypertension, anxiety, peptic ulcer disease presents to the emergency department with shortness of breath and abdominal distention found to have recurrent ascites, UTI and encephalopathy Acute toxic metabolic encephalopathy Due to UTI Ammonia normal no asterixis on exam, no evidence of hepatic encephalopathy Treat underlying infection Acute UTI no evidence of sepsis IV ceftriaxone Urine culture pending, blood cultures pending Recurrent symptomatic ascites Due to underlying liver cirrhosis s/p paracentesis with removal of 6.3L of fluid post-procedure albumin ordered by IR. BP stable no evidence of sbp fluid culture pending GI plans to start on scheduled outpatient paracentesis acute lactic acidosis not due to sepsis due to underlying liver disease acute hyperchloremic metabolic acidosis follow BMP liver cirrhosis with recurrent ascites & h/o esophageal varices s/p banding continue aldactone, coreg HTN hold lisinopril to prevent post procedure hypotension can resume in am if bp remains stable hemorrhoids continue rectal hydrocortisone tobacco dependence smoking cessation advised smokes 2 cigarettes daily NRT dvt ppx - mechanical devices HCP - ritchie Alvares code status - full code Quality Stroke Does the patient have a stroke diagnosis?: No VTE Prior VTE?: No VTE Risk Level:: Medical - moderate - high VTE Device Contraindication: N/A - Device Ordered VTE Drug Contraindication: Treatment Not Indicated
[2024-02-24] MEDS: cefTRIAXone sodium 1 GM VIAL IVPUSH (12:53)
[2024-02-24 15:13] VITALS: BP 112/56; PULSE 75; RESP 18; TEMP 36.4; O2SAT 100
[2024-02-24 19:54] VITALS: BP 120/60; PULSE 83; RESP 16; TEMP 36.7; O2SAT 98
[2024-02-25 03:41] VITALS: BP 116/60; PULSE 73; RESP 15; TEMP 36.3; O2SAT 97
--- NOTE | 2024-02-25 07:15 | PM.DS ---
DS: Providers Provider Date of Service: 02/25/24 Date of admission: 02/23/24 16:22 Primary care physician: Unknown Physician DS: Diagnosis Discharge Diagnosis (1) Cirrhosis of liver with ascites: Status: Acute DS: Summary Hospital Course Hospital Course: History and physical as per admitting provider. This is a 73-year-old female with history of liver cirrhosis due to chronic hepatitis-C who presented to the emergency department with complaints shortness of breath and abdominal distention found to have recurrent ascites. She recently had paracentesis by IR on 01/11 and 02/07 with 5 and 7L removed respectively. In the emergency department she underwent paracentesis with removal of 6.3 L of ascitic fluid. No evidence of SBP. The rest of her workup was largely unremarkable with the exception of urinalysis which was consistent with a UTI and elevated lactic acid of 3.0. She was also to have some confusion which is different from her baseline. She denies any dysuria, nausea, vomiting. Her shortness of breath and abdominal distention have improved since having paracentesis. Due to confusion with associated UTI she was treated with IV ceftriaxone and will be admitted for further management. 73-year-old woman treated for acute toxic metabolic encephalopathy secondary to recurrent symptomatic ascites. Status post paracentesis with removal of 6.3 L of fluid, treated with lactulose, no evidence of SBP. Gastroenterology plans to schedule outpatient paracentesis for patient. Encephalopathy was likely related to urinary tract infection, found to have E coli UTI, initially treated with IV Rocephin, home with Ceftin to complete total of 7 day treatment. Her ammonia was noted to be normal and no evidence of hepatic encephalopathy. acute lactic acidosis not due to sepsis due to underlying liver disease acute hyperchloremic metabolic acidosis follow BMP liver cirrhosis with recurrent ascites & h/o esophageal varices s/p banding continue aldactone, coreg HTN Lisinopril hemorrhoids continue rectal hydrocortisone tobacco dependence smoking cessation advised smokes 2 cigarettes daily Time Attestation Discharge Coordination Time (in mins): 40 Quality: Safe Use of Opioids Does Pt have an Active Cancer Diagnosis on the Problem List?: No Quality: Stroke Does the patient have a stroke diagnosis?: No Physical Exam Vital Signs: Vital Signs: Last Vital Signs Temp 97.3 F 02/25/24 03:41 Pulse 73 02/25/24 03:41 Resp 15 02/25/24 03:41 BP 116/60 02/25/24 03:41 Pulse Ox 97 02/25/24 03:41 O2 Del Method Room Air 02/25/24 03:41 BMI result Body Mass Index 23.3 Appearing in no acute distress head is normocephalic atraumatic eyes pupils are PERRLA sclera is anicteric mouth throat mucous membranes are intact and moist neck is supple no lymphadenopathy, no JVD noted lung sounds are clear to auscultation heart regular rate rhythm, clear S1, S2 positive bowel sounds, abdomen is soft, nontender neuro patient is alert x3, no focal deficits DS: Data Data Completed and Pending Labs on day of discharge: Laboratory Results - last 24 hr 02/23/24 14:30 Peritoneal Albumin 0.7 Peritoneal Glucose 128 Preliminary micro results at discharge 02/23/24 13:36 Blood Culture - Preliminary Blood - Venous No growth after 24 hours. 02/23/24 13:36 Blood Culture - Preliminary Blood - Venous No growth after 24 hours. 02/23/24 Unknown Urine Culture - Preliminary Urine clean catch - Clean Catch Midstream Gram negative lacey 02/23/24 14:30 Anaerobic Culture - Preliminary Ascites Fluid No growth to date. Body Fluid Culture - Preliminary No growth to date. Discharge Plan Discharge Anticipated Discharge Date/Time: 02/25/24 07:11 Patient Disposition: Home, Self-Care Discharge Diagnosis: Acute toxic metabolic encephalopathy UTI Ascites Acute lactic acidosis Acute hyperkalemic metabolic acidosis Discharge Medications: New cefuroxime axetil 250 mg tablet 250 mg PO BID Qty: 10 0RF Continued spironolactone 50 mg tablet 50 mg PO DAILY AsperFlex (lidocaine HCl) 4 % ointment 1 ea topical TID PRN (Reason: To perianal area) lactulose 10 gram/15 mL (15 mL) solution 10 g PO DAILY 30 Days Qty: 450 2RF lisinopril 20 mg tablet 20 mg PO BEDTIME carvedilol 3.125 mg tablet 3.125 mg PO BID Rx Instructions: must administer with a meal/food hydrocortisone 2.5 % cream with perineal applicator 1 appl HI BID-QID PRN (Reason: hemorrhoids) 30 Days Qty: 30 2RF (DME) blood pressure test kit-large Kit See Rx Instructions .ROUTE DIRECTED Qty: 1 Rx Instructions: As directed Discharge Orders: Discharge Order (Routine); Ordered 02/25/24 Ordered By: Hui Knight Diet: Advance to usual diet Activity on Discharge: As tolerated Stand Alone Forms: Patient Portal Discharge page Print Language: Belarusian Care Plan Goals: Follow-up with Gastroenterology to schedule outpatient paracentesis Health Concerns: Acute toxic metabolic encephalopathy UTI Ascites Acute lactic acidosis Acute hyperkalemic metabolic acidosis Plan of Treatment: Follow-up with primary provider as needed Take all medications as prescribed Assessment: See discharge summary Patient Instructions: Cefuroxime (By mouth), Urinary Tract Infection in Women (DC), Hepatic Encephalopathy (DC)
[2024-02-25 08:00] VITALS: BP 129/69; PULSE 87; RESP 14; TEMP 36.1; O2SAT 98
--- NOTE | 2024-02-25 09:06 | MHC.CM.PN ---
PT CLEARED TO DC HOME TODAY WITH NO SERVICES SON TO TRANSPORT
[2024-02-25 09:09] VITALS: BP 129/69; PULSE 87
[2024-02-25] MEDS: Spironolactone 25 MG TABLET 50 MG PO (09:09)
[2024-02-25] MEDS: carvediloL 3.125 MG TABLET PO (09:09)
== END 2024-02-25 10:15 | disposition home or self-care (01) | DRG 432 ==
LOC: HO.ED 15:27 → HO.EDOVER 16:22 → HO.S3 17:25
PROVIDERS: Absent Provider Internal Medicine Gastroenterology; Admitting Provider Physician Assistant Medical; Emergency Provider Emergency Medicine; PCP Internal Medicine; Visit Provider Nurse Practitioner Acute Care
DX: K74.69 Other cirrhosis of liver (principal); G92.8 Other toxic encephalopathy; R18.8 Other ascites; N39.0 Urinary tract infection, site not specified; I10 Essential (primary) hypertension; K64.9 Unspecified hemorrhoids; B96.20 Unspecified Escherichia coli [E. coli] as the cause of diseases classified elsewhere; F17.210 Nicotine dependence, cigarettes, uncomplicated; E78.2 Mixed hyperlipidemia; B18.2 Chronic viral hepatitis C; Z71.6 Tobacco abuse counseling; Z20.822 Contact with and (suspected) exposure to COVID-19; Z79.899 Other long term (current) drug therapy
CPT/HCPCS: 0241U; 36415; 49083; 71045; 80048; 80076; 81001; 82042; 82140; 82945; 83605; 83690; 83735; 83880; 85025; 85610; 87040; 87070; 87073; 87086; 87088; 87186; 87205; 89051; 93005; 99202; 99285; J0696; J1940; J2003; P9047

== ENCOUNTER → 2024-02-23 10:43 | Outpatient (BNV) | payer OTHER, SELFPAY | PROVIDERS: Absent Provider Internal Medicine Gastroenterology; Emergency Provider Emergency Medicine; Visit Provider Internal Medicine Cardiovascular Disease | DX: R06.00 Dyspnea, unspecified (principal) | CPT/HCPCS: 93010 ==

== ENCOUNTER → 2024-02-23 10:46 | Outpatient (BNV) | payer OTHER, SELFPAY | PROVIDERS: Absent Provider Internal Medicine Gastroenterology; Emergency Provider Emergency Medicine; Visit Provider Physician Assistant Surgical | DX: R18.8 Other ascites (principal) | CPT/HCPCS: 49083 ==

== ENCOUNTER → 2024-02-23 11:30 | Outpatient (BNV) | payer OTHER, SELFPAY | PROVIDERS: Absent Provider Internal Medicine Gastroenterology; Emergency Provider Emergency Medicine; Visit Provider Radiology Diagnostic Radiology | DX: R06.00 Dyspnea, unspecified (principal) | CPT/HCPCS: 49083; 71045 ==

== ENCOUNTER → 2024-02-23 16:22 | Outpatient (BNV) | payer OTHER, SELFPAY | PROVIDERS: Absent Provider Internal Medicine Gastroenterology; Admitting Provider Physician Assistant Medical; Emergency Provider Emergency Medicine; Visit Provider Nurse Practitioner Acute Care | DX: K74.60 Unspecified cirrhosis of liver (principal); R18.8 Other ascites | CPT/HCPCS: 99232 ==

== ENCOUNTER 2024-02-29 10:47 | Outpatient (AMB) | payer OTHER, SELFPAY ==
--- NOTE | 2024-02-29 10:52 | A.OFFVIS_ITS ---
Vital Signs 02/29/24 10:53 Height 5 ft Weight 118 lb BMI 23.0 BP 98/54 L Blood Pressure Location Lt brachial Position Sitting Pulse 80 Intake Visit Reasons: Cirrhosis Intake Note: Patient follow up for Cirrhosis of liver without ascites/lab results. Patient cc: diarrhea, abdominal bloating, not a good appetite. 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: No Accompanied by: Son Allergies No Known Allergies Allergy (Verified 03/08/24 13:11) Medication List - Last Reconciled 02/29/24 by Vladimir Marks MD blood pressure test kit-large As directed carvedilol 3.125 mg PO BID cefuroxime axetil 250 mg PO BID hydrocortisone 2.5% 1 appl NC BID-QID PRN 30 days lactulose 10 grams (15 mL) PO DAILY 30 days lidocaine HCl 4% (AsperFlex (lidocaine HCl)) 1 ea topical TID PRN lisinopril 20 mg PO BEDTIME spironolactone 50 mg PO DAILY HPI HPI Cirrhosis: Details: GI clinic visit for this 73 YF with cirrhosis related to chronic hepatitis C infection, Hypertension, anxiety disorder, PVD, history of stomach ulcers seen for FU of cirrhosis. Patient was hospitalized at [facility] from 02/22 to 02/25/24 with abdominal distension: 73-year-old woman treated for acute toxic metabolic encephalopathy secondary to recurrent symptomatic ascites. Status post paracentesis with removal of 6.3 L of fluid, treated with lactulose, no evidence of SBP. Gastroenterology plans to schedule outpatient paracentesis for patient. Encephalopathy was likely related to urinary tract infection, found to have E coli UTI, initially treated with IV Rocephin, home with Ceftin to complete total of 7 day treatment. Her ammonia was noted to be normal and no evidence of hepatic encephalopathy. TODAY'S VISIT Pt is accompanied by Giorgio, her son Patient follow up for Cirrhosis of liver without ascites/lab results. Patient cc: diarrhea, abdominal bloating, not a good appetite. Denies recurrent abdominal distension since last paracentesis on 02/23/24 Wt loss of 12 lbs over the past 4 weeks. Abd distension slightly improved. Taking diuretics Has an appt with her PCP on 05/08/24 PAST VISITS: Patient cc: painful and discomfort hemorrhoids with some bloody BM, gassy, abdominal bloating also patient start taking memory med on her own. Unable to schedule an earlier appt since she was recovering from a broken wrist Complains of abdominal distension with wt gain and ankle edema Lab results reviewed with the patient. Anemia resolved and pt was advised to decrease iron to once a day. Wt loss of 10 lbs - does not have an appetite. Colonoscopy results reviewed with the patient. She will finish Hep C treatment in 3-4 days. Denies side effects with medications. 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 06/09/22 had EGD with band ligation by Dr Tin BARKSDALE EGD is scheduled on 07/25/22 She was having black stools in the past which has improved. 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 Complains of intermittent fatigue and bloating Complains of intermittent black stools Pt is a poor historian and goes off in tangents (she likes to talk about non medical issues from her past) and needs to be redirected after every few minutes. She was gardening last week for 4 hrs and noted diarrhea with dark stools /? blood in stool [place] better the next day and bleeding stopped. [place] a little dizzy.? Feels Ok today. Last hospitalization was 3 yrs ago. Lab results were reviewed with the patient Had an MRI done a year ago which was normal per patient Denies past problems with anesthesia, snoring or sleep? apnea. Pt reports having passing out spells 2.5 yrs ago - admitted to the [facility] after 4th episode Admitted to [facility] after an episode of rectal bleeding. Reports being very active all her life. 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. Also worked a number of different jobs Patient admits to smoking 3 cigarettes a day and denies EtOH abuse Denies known FH of liver disease, colon polyp ? with Hep C and her Son has moved in with her. LABS IN Enbase:?09/29/21 labs from [facility] were reviewed: ? WBC 5.3, Hemoglobin 11.9, hematocrit 36.6, MCV 80.1, platelet count 129, RDW normal, ? Sodium 139, potassium 4.3, BUN 22, creatinine 0.91, albumin 3.8, bilirubin 0.9, AST 66, ALT 68, alkaline phosphatase 64.? Prothrombin time 11.1 with INR of 1.1, PTT 27, vitamin-D 30 microgram/mL, TSH 2.4 to, vitamin B12 458 ?Echocardiogram: 03/05? showed: ?Conclusions: ?- The left ventricular systolic? function is mild to moderately decreased. ? The visually estimated? ejection fraction is between 40-45%. ?- The apex, apical? inferior, apical lateral, apical septum, and ?mid anteroseptal segments? are akinetic. ?- The left atrium is severely dilated. ?- There? is moderate calcification of the aortic valve. ?- There is moderate? mitral annular calcification. There is mild mitral valve? regurgitation. ?- There is mild tricuspid valve? regurgitation. ?IMAGING STUDIES: 08/2022 ABD US SHOWED: Cirrhotic liver. Question new hypoechoic lesion right lobe measuring maximum 2.7 cm. Follow-up liver MRI recommended. 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 01/19/22 ABD US SHOWED: Cirrhotic appearing liver with a hyperechoic lesion left hepatic lobe likely hemangioma versus focal fatty infiltration. Prominent middle portal vein but no thrombus seen. ?Enlarged spleen with a probable small splenule and trace free fluid surrounding the spleen. ?No gallstones but moderate focal wall thickening seen measuring 0.85 cm. 06/28 abdominal MRI scan? showed: ?IMPRESSION: ? 1. No change in the small 6 mm area of? enhancement in the left lobe ? of the liver. This is an indeterminate? finding. ? 2. Questionable collapse of right breast? implant. ENDOSCOPIC STUDIES: 08/03/22 Colonoscopy showed: One medium sized adenomatous polyp removed Mild edema of colonic folds in the right colon (likely due to cirrhosis with portal hypertension) - random biopsies were obtained. Moderate diverticulosis seen in the entire colon Moderate rectal varices and hemorrhoids on retroflexed exam. Plan:? Repeat Colonoscopy interval based on path results - in 3 years if polyps are adenomatous and 10 years if polyps are hyperplastic. 03/2020 EGD was performed during hospitalization at [facility] after multiple syncopal episodes.? H&H was 5.5/22.4 and patient was transfused 2 units packed RBCs.? EGD showed esophageal varices (which were banded) and gastric antral vascular ectasia Patient was discharged on atenolol 25 mg once a day, iron sulfate 325 mg once a day, atorvastatin 20 mg daily, folic acid 1 mg daily, pantoprazole 40 mg daily. Patient reports having an EGD and a colonoscopy in February 2018 at [facility] by Dr. Valentin. ON LICENSE OF [facility] Medical History Prolapsed hemorrhoids Hx of gastritis Hiatal hernia Liver cirrhosis Anxiety HTN (hypertension) Hepatitis C Anemia Surgical History History of esophagogastroduodenoscopy (EGD) Hx of cataract surgery Hx of colonoscopy Family History Father Diabetes Paternal Grandmother Diabetes Mother Alzheimer disease Social History Household Members: Family Housing: House Are you a primary healthcare administration internship to a significant other at home: No Do you presently have visiting nurse or other home services: No Alcohol intake: former Patient Tobacco Use Status: Former Tobacco user Tobacco use type: Cigarette Cigarettes Per Day: 2 Second Hand Smoke Exposure: No service: No Current occupational status: unemployed Review of Systems Const All systems reviewed & are unremarkable except as noted in HPI and below Physical Exam Vital Signs: Last Vital Signs Pulse 80 02/29/24 10:53 BP 98/54 L 02/29/24 10:53 BMI result Body Mass Index 23.0 Last Vital Signs Temp 97 F 03/08/24 17:40 Pulse 80 03/08/24 17:40 Resp 18 03/08/24 17:40 BP 119/65 03/08/24 17:40 Pulse Ox 100 03/08/24 17:40 O2 Del Method Room Air 03/08/24 17:40 BMI result Body Mass Index 21.6 Const General: no acute distress, alert and awake Resp Effort & Inspection: normal respiratory effort and able to speak in complete sentences Auscultation: clear to auscultation bilaterally Cardio Jugular venous distension: no JVD Rate: regular rate Rhythm: regular rhythm Heart sounds: S1 normal heart sound present and S2 normal heart sound present GI Inspection: Yes distended Palpation (GI): Soft to palpation and nontender General: Yes no CVA tenderness Back/Spine/Pelvis Back: no CVA tenderness Skin Lesions: no lesions Rashes: no rashes Extrem General: Yes edema Assessment & Plan Assessment & Plan (1) Hepatitis C, chronic: Comment: June, Treated with Mavyret (3 tablets (glecaprevir 100 mg/pibrentasvir 40 mg?per tablet) once daily for 8 weeks Code(s): B18.2 - Chronic viral hepatitis C Category: Medical (2) Hepatic cirrhosis due to chronic hepatitis C infection: Code(s): B18.2 - Chronic viral hepatitis C; K74.60 - Unspecified cirrhosis of liver Category: Medical (3) Iron deficiency anemia: Code(s): D50.9 - Iron deficiency anemia, unspecified Category: Medical (4) History of colon polyps: Comment: 08/03/22 colonoscopy was performed and a 12-15 mm adenomatous polyp was removed from the distal sigmoid colon. Repeat colonoscopy advised in 3 years (due 07/2025). Code(s): Z86.010 - Personal history of colon polyps Category: Medical (5) Liver lesion, right lobe: Code(s): K76.9 - Liver disease, unspecified Category: Medical (6) Liver lesion, left lobe: Code(s): K76.9 - Liver disease, unspecified Category: Medical (7) Hemorrhoids, internal, with bleeding: Code(s): K64.8 - Other hemorrhoids Category: Medical Plan 73 YF with chronic hepatitis C (Genotype 1b - diagnosed in 2010), Hypertension, liver cirrhosis due to chronic hepatitis-C, anxiety disorder, peripheral vascular disease, history of stomach ulcers. MELD score is 8.? Patient denies being? treated for hepatitis-C in the past. Past lab evaluation is suggestive of? compensated cirrhosis with portal hypertension and thrombocytopenia. Hepatitis serologies showed positive Hep B core ab suggestive of past hepatitis B infection (Hep B DNA levels were negative). The? patient had an opportunity to ask questions regarding treatment plan. The?patient expressed understanding and agreement with the above treatment? plan. 06/09 EGD was performed by Dr Castle and showed a small hiatal hernia and grade 2 esophageal varix with a few red gaines which was ligated with 3 rubber bands and treated with hemo spray.? 07/25/22 FU EGD showed?Two columns of grade 1 -2 varices from 30 to 38 cms which flattened on air insufflation and were not amenable to band ligation.? 08/03/22 colonoscopy was performed and a?12-15 mm adenomatous polyp was removed from the distal sigmoid colon. Of note patient was prescribed iron supplement but has not been taking it. New prescription was sent for ferrous sulfate and patient was advised to take it twice a day. Continue treatment with Mavyret (3 tablets (glecaprevir 100 mg/pibrentasvir 40 mg?per tablet) once daily for additional 4 days. 08/08/22 Repeat labs next week after completion of Hep C treatment. 08/2022 ABD US showed question of a new 2.7 cms hypoechoic lesion in the right hepatic lobe. 10/2022 MRI was performed and results as noted. 01/05/24 Complains of abdominal distension with wt gain and ankle edema Pt advised to have labs checked and schedule an urgent MRI - FU of liver lesions She will be scheduled for an urgent diagnostic paracentesis - scheduled 01/12/24 I will start her on diuretics after paracentesis 02/02/24 Abd bloating and early satiety with wt loss of 12 lbs over the past 4 weeks. Abd distension slightly improved with diuretics - pt advised to increase furosemide to 20 mg twice daily. If no improvement in ascites with above, I will schedule her for therapeutic paracentesis 02/29/24 Wt loss of 12 lbs over the past 4 weeks - states she is drinking Ensure. Abd distension slightly improved after paracentesis. Taking diuretics. Cr increased from baseline of 1 to 1.39 on 02/24/24 Pt advised to discontinue diuretics and ascites will be managed by intermittent therapeutic paracentesis every 2 weeks Follow-up in 3 weeks Orders: Orders Basic Metabolic Panel 02/29/24 B18.2 - Chronic viral hepatitis C, K74.60 - Unspecified cirrhosis of liver Alpha Fetoprotein 02/29/24 B18.2 - Chronic viral hepatitis C, K74.60 - Unspecified cirrhosis of liver Hepatitis C Viral Load 02/29/24 B18.2 - Chronic viral hepatitis C, K74.60 - Unspecified cirrhosis of liver Prealbumin 02/29/24 B18.2 - Chronic viral hepatitis C, K74.60 - Unspecified cirrhosis of liver Coding Level of Care Code Est Pt Level 4 (73176) Diagnoses Hepatitis C, chronic B18.2 Hepatic cirrhosis due to chronic hepatitis C infection B18.2; K74.60 Iron deficiency anemia D50.9 History of colon polyps Z86.010 Liver lesion, right lobe K76.9 Liver lesion, left lobe K76.9 Hemorrhoids, internal, with bleeding K64.8 Time Spent (min) 21
[2024-02-29 10:53] VITALS: BP 98/54; PULSE 80; BMI 23.0
== END 2024-02-29 11:41 | disposition home or self-care (01) ==
PROVIDERS: PCP Internal Medicine; Visit Provider Internal Medicine Gastroenterology
DX: B18.2 Chronic viral hepatitis C (principal); K74.60 Unspecified cirrhosis of liver; D50.9 Iron deficiency anemia, unspecified; Z86.0100 Personal history of colon polyps, unspecified; K76.9 Liver disease, unspecified; K64.8 Other hemorrhoids
CPT/HCPCS: 99214

== ENCOUNTER 2024-02-29 10:47 | Outpatient (REF) | payer OTHER, SELFPAY ==
[2024-02-29 12:35] LABS: Anion Gap 13 (12-20); Blood Urea Nitrogen 54 mg/dL (9-16); Calcium 8.8 mg/dL (8.4-10.2); Carbon Dioxide 23 mmol/L (22-29); Chloride 102 mmol/L (96-108); Estimated Glomerular Filt Rate 27; Glucose Random 110 mg/dL (60-115); Potassium 5.6 mmol/L (3.3-5.1); Sodium 132 mmol/L (135-145)
[2024-03-04 12:58] LABS: Alpha Fetoprotein 3.6 ng/mL
== END 2024-02-29 10:48 | disposition home or self-care (01) ==
LOC: HO.LAB 10:47
PROVIDERS: PCP Internal Medicine; Visit Provider Internal Medicine Gastroenterology
DX: B18.2 Chronic viral hepatitis C (principal); K74.60 Unspecified cirrhosis of liver; D50.9 Iron deficiency anemia, unspecified; Z86.0100 Personal history of colon polyps, unspecified; K76.9 Liver disease, unspecified; K64.8 Other hemorrhoids
CPT/HCPCS: 36415; 80048; 82105; 84134; 87522; 99212

== ENCOUNTER 2024-03-08 09:26 | Day surgery (SDC) | payer OTHER, SELFPAY ==
[2024-03-08] VITALS (9 sets, daily range): BP systolic 116–144; BP diastolic 63–77; PULSE 75–92; RESP 13–20; TEMP 36.2–36.9; O2SAT 94–100; BMI 23.0
--- NOTE | ~2024-03-08 | US_ITS ---
ULTRASOUND GUIDED PARACENTESIS History: Ascites. Therapeutic drainage. TECHNIQUE: Risks and benefits and possible complications were discussed with the patient and consent form was signed. A safe pocket of ascitic fluid was identified using ultrasound guidance, and the overlying skin was marked. The abdomen prepped and draped in sterile fashion. 1% lidocaine was used as a local anesthetic. Using ultrasound guidance, a 5 fr catheter was placed into the ascitic pocket. 6.0 liters of yellow fluid was removed passively. The catheter was then removed. A few financial services representative images from before and after the examination were obtained. The procedure was performed by Silverio Yap PA-C and supervised by Dr. Dias. US/US paracentesis abd w/image IMPRESSION: Ultrasound-guided paracentesis as described above. No immediate complications Electronically signed by: Jacky Dias MD 03/11/2024 03:48 PM SARA
[2024-03-08] MEDS: Albumin Human 25 % 100 ML IV ×2 (10:45→11:39)
--- NOTE | 2024-03-08 10:52 | PC.NURSE ---
This was an add on case to follow previous procedure.
[2024-03-08] MEDS: Lidocaine HCl 1 % MPF 5 ML VIAL SUBCUT (11:26)
[2024-03-08 12:05] LABS: Hematocrit 35.3 % (37.0-47.0); Hemoglobin 11.4 g/dl (12.0-16.0); Mean Corpuscular HGB Conc 32.3 g/dl (31.0-35.0); Mean Corpuscular Hemoglobin 27.5 pg (27.0-33.0); Mean Corpuscular Volume 85.3 fL (80.0-98.0); Platelet Count 156 X10*3/uL (160-400); Red Blood Count 4.14 X10*6/uL (4.20-5.50); Red Cell Distribution Width 15.6 % (11.0-16.0); White Blood Count 5.7 X10*3/uL (4.8-10.8)
[2024-03-08 12:12] LABS: Ammonia 29 umol/L (13-55)
[2024-03-08 12:21] LABS: Alanine Aminotransferase 53 U/L (0-31); Albumin Level 3.7 g/dL (3.5-5.0); Alkaline Phosphatase 244 U/L (39-117); Anion Gap 14 (12-20); Aspartate Amino Transferase 135 U/L (5-31); Bilirubin Total 1.8 mg/dL (0.0-1.0); Blood Urea Nitrogen 53 mg/dL (9-16); Calcium 8.8 mg/dL (8.4-10.2); Carbon Dioxide 19 mmol/L (22-29); Chloride 106 mmol/L (96-108); Creatinine Clr Calc Pharmacy 18.6; Estimated Glomerular Filt Rate 25; Glucose Random 104 mg/dL (60-115); Potassium 5.7 mmol/L (3.3-5.1); Sodium 133 mmol/L (135-145); Total Protein 6.6 g/dL (6.5-8.0)
== END 2024-03-08 12:27 | disposition home or self-care (01) ==
PROVIDERS: Physician Assistant Surgical; PCP Internal Medicine; Visit Provider Internal Medicine Gastroenterology
DX: R18.8 Other ascites (principal); K74.60 Unspecified cirrhosis of liver; B18.2 Chronic viral hepatitis C; R14.0 Abdominal distension (gaseous); I10 Essential (primary) hypertension; I73.9 Peripheral vascular disease, unspecified; D50.9 Iron deficiency anemia, unspecified; F41.9 Anxiety disorder, unspecified; Z86.0101 Personal history of adenomatous and serrated colon polyps; Z79.899 Other long term (current) drug therapy; F17.210 Nicotine dependence, cigarettes, uncomplicated; Z56.0 Unemployment, unspecified
CPT/HCPCS: 36415; 49083; 80053; 82140; 85027; J2003; P9047

== ENCOUNTER → 2024-03-08 10:24 | Outpatient (BNV) | payer OTHER, SELFPAY | PROVIDERS: PCP Internal Medicine; Visit Provider Physician Assistant Surgical | DX: R18.8 Other ascites (principal) | CPT/HCPCS: 49083 ==

== ENCOUNTER 2024-03-08 10:28 | Outpatient (REF) | payer OTHER, SELFPAY | END 2024-03-08 10:29 | disposition home or self-care (01) | LOC: HO.LAB 10:28 | PROVIDERS: PCP Internal Medicine; Visit Provider Internal Medicine Gastroenterology | DX: Z13.89 Encounter for screening for other disorder (principal) ==

== ENCOUNTER 2024-03-08 12:51 | Inpatient (IN) | payer OTHER, SELFPAY ==
[2024-03-08] VITALS (7 sets, daily range): BP systolic 107–141; BP diastolic 59–73; PULSE 70–84; RESP 15–18; TEMP 36.1–36.8; O2SAT 96–100; BMI 21.6
--- NOTE | 2024-03-08 13:09 | ECG_ITS ---
Test Reason : HYPERKALMEIA Blood Pressure : / mmHG Vent. Rate : 080 BPM Atrial Rate : 080 BPM P-R Int : 150 ms QRS Dur : 088 ms QT Int : 390 ms P-R-T Axes : 070 007 063 degrees QTc Int : 449 ms Normal sinus rhythm Cannot rule out Anteroseptal infarct (cited on or before 04-JUL-2022) Abnormal ECG When compared with ECG of 23-FEB-2024 10:52, Questionable change in initial forces of Anterior leads Referred By: Silverio Gonzalez Electronically Signed By:WILFRID PLATT MD
--- NOTE | 2024-03-08 13:09 | ED_ITS ---
HPI - General Adult General Chief complaint: Recheck/Abnormal Lab/Rx Stated complaint: abnormal labs Time Seen by Provider: 03/08/24 13:45 Source: patient Mode of arrival: ambulatory Limitations: no limitations History of Present Illness ED Provider: Yaritza Mahan PA-C HPI narrative: 73 yo female with history of decompensated hepatitis C cirrhosis with ascites requiring frequent large volume paracentesis, hx UGIB 2/2 esophageal varies, HTN, hemorrhoids, HTN, anxiety, iron deficiency anemia, recent admission here 02/22-02/24 for abd distention & E. coli UTI who presents to the ER for eval uation of abnormal labs after having a paracentesis here today. She was seen in the GI office on 02/28 after her admission and advised to increase her lasix 20 mg BID. She is also on spironolactone and an LEXI inhibitor. Patient reports that her GI doctor, Dr. Marks contacted her about abnormal blood work and told her to stop her diuretics and her lisinopril. She has not taken them in at least 2 days. She is a poor historian. After the paracentesis today patient reports improvement in her abdominal distention. She denies any abdominal pain, nausea, vomiting, diarrhea. No fever or chills. No urinary symptoms. She states her urination overall has declined. She is having some diarrhea without blood. she is not taking lactulose that she knows of. complaint: abnormal labs Onset (ago): day(s) Associated symptoms: weakness Treatments prior to arrival: none Related Data Home Medications ?Medication ?Instructions ?Recorded ?Confirmed blood pressure test kit-large #1 ea 08/08/22 03/08/24 Previous Rx's ?Medication ?Instructions ?Recorded lactulose 10 gram/15 mL (15 mL) 10 g (15 mL) PO DAILY 30 days #450 02/25/24 oral solution mL Allergies Allergy/AdvReac Type Severity Reaction Status Date / Time No Known Allergies Allergy Verified 03/08/24 13:11 Review of Systems Review of Systems: Yes all other systems are reviewed and are negative [facility] Past Medical History Medical History Prolapsed hemorrhoids Hx of gastritis Hiatal hernia Liver cirrhosis Anxiety HTN (hypertension) Hepatitis C Anemia Surgical History History of esophagogastroduodenoscopy (EGD) Hx of cataract surgery Hx of colonoscopy Family History Family History Father Diabetes Paternal Grandmother Diabetes Mother Alzheimer disease Social History Social History Household Members: Children Housing: House Are you a primary care analyst to a significant other at home: No Do you presently have visiting nurse or other home services: No Alcohol intake: former Patient Tobacco Use Status: Current everyday Tobacco user Tobacco use type: Cigarette Cigarettes Per Day: 2 Smoked in Last 30 Days: No Second Hand Smoke Exposure: No Use of substances other than those prescribed or required for medical reasons: No Advance Directives: No Advance Directives Information Provided: Yes Do you have a plan to hurt others: No Plan service: No Current occupational status: unemployed Physical Exam ED Vital Signs: Vital Signs - 24 hr 03/08/24 13:05 03/08/24 14:00 Temperature 97.9 F 98.0 F Pulse Rate 84 71 Respiratory Rate 16 15 Blood Pressure 132/72 120/59 L Pulse Oximetry 100 96 Oxygen Delivery Method Room Air Room Air BMI result Body Mass Index 21.6 Appearance: Alert elderly female, Oriented X3. No acute distress. Head: normocephalic, atraumatic. Eyes: Pupils equal, round and reactive to light. ENT: Pharynx normal. No tonsillar swelling or exudate. Neck: Normal inspection. Neck supple. CVS: Normal heart rate and rhythm. Pulses normal. Respiratory: No respiratory distress. Breath sounds normal. Abdomen: Softly distended and nontender. +BS x4. dry sterile dressing in place i n the RLQ Skin: Skin warm and dry. Normal skin color. Normal skin turgor. No rashes. Extremities: No lower extremity edema. No joint swelling. superficial, nontender varicose veins bilaterally. Neuro/psych: Oriented X 3. No motor deficit. No sensory deficit. CN II-XII intact. Normal speech and cognition. Course Course Course Narrative: RMHarriett, this is a rapid medical exam performed by Peewee Gonzalez please refer to primary provider for complete H&P- 73 year old female with history of hepatitis c with liver cirrhosis presents for evaluation of abnormal labs. She had a routing therapeutic paracentesis today and her doctor told her to return due to labs. She thinks it may be related to her renal function. She had labs about and hour and a half ago and her Renal function was slightly elevated with a creatinine of 1.96 and a potassium of 5.7. Plan for EKG in triage will defer any repeat labs as they were just done less than 2 hours ago Medications Administered Generic Name Dose Route Start Last Admin Trade Name Freq PRN Reason Stop Dose Admin Albumin Human 100 mls @ 100 mls/hr 03/08/24 14:00 03/08/24 15:37 Kedbumin 25 % IV 03/08/24 15:59 100 mls/hr Q1H LOYD Administration Discontinued Medications Generic Name Dose Route Start Last Admin Trade Name Freq PRN Reason Stop Dose Admin Sodium Zirconium Cyclosilicate 10 gm 03/08/24 15:31 03/08/24 15:39 Sodium Zirconium Cyclosilicate 10 Gm Powd.Pack PO 03/08/24 15:32 10 gm ONCE ONE Administration Medical Decision Making Medical Decision Making MDM Narrative: 73 yo female with history of decompensated hepatitis C cirrhosis with ascites requiring frequent large volume paracentesis, hx UGIB 2/2 esophageal varies, H TN, hemorrhoids, HTN, anxiety, iron deficiency anemia, recent admission here 02/22-02/24 for abd distention & E. coli UTI who presents to the ER for evaluation of abnormal labs after having a paracentesis here today. unclear if she got albumin with procedure, no documentation in IR yet. no answer from IR nurse when called x1. Had RICHARD on labs 02/28 BUN/Cr 54/1.83 from 37/1.39 when admitted. today 53/1.96 K 5.7. had stopped her LEXI, lasix and spironolactone for at least 2-3 days prior to today. sounds like she had 6L removed today. unclear if she got albumin with it. giving her 25 g x2 now and planning to repeat labs will admit to the hospital for further management of RICHARD. neprhrology consulted for concerns of possible HRS Differential Diagnosis Differential Diagnoses: The differential diagnosis associated with the presentation includes hepatorenal syndrome, paracentesis-induced circulatory dysfunction w/ pre-renal RICHARD, doubt obstructive uropathy Admission/Observation Consideration of admission/observation: Escalation of care including admission/o bservation considered Consult Healthcare Provider Management of the patient was discussed with: Tub Mender Dr. Marks rec admit and nephro consult, concern for HRS Dr. Zazueta consulted Lab Data MDM Lab Attestation statement: I reviewed the patient's lab results. worsening RICHARD External Record Review External record reviewed: Inpatient record, Outpatient record, Prior outpatient labs and Prior outpatient radiology Prescription Management I considered prescription management with: Other (albumin, crystalloid ) Chronic Conditions Patient?s care impacted by: Other (cirrhosis) Critical Care Time Critical Care Time Critical Care Time: No Discharge Plan Discharge Clinical Impression: RICHARD (acute kidney injury) Patient Disposition: Admitted As Inpatient
--- NOTE | 2024-03-08 14:20 | PC.NURSE ---
pt alert and oriented, skin pwd, respirations even and unlabored, pt is coming because she received a call saying some of her labs where abnormal pt is unable to state what lab 'pt did have paracentesis done earlier today-pt reports that 6.5L where removed, pt's abd soft and non-tender, pt does have a dressing on the right sided of her abd from the procedure, pt denies pain/sob but us stating that she is feeling slightly dizzy
[2024-03-08] MEDS: Albumin Human 25 % 100 ML IV ×3 (14:22→21:03)
--- NOTE | 2024-03-08 15:14 | PHA.MEDREC ---
Addendum entered by Alejandro Chaney [facility] 03/08/24 15:25: med rec reviewed Original Note: Pharmacy Consult ? Medication Reconciliation Pharmacy has completed the medication reconciliation. Spoke with patient and she was confused and not able to give me any information about her medications or any information about her recent Dr appointment when her Lisinopril 20mg tab and Spironolactone 50mg tabs were stopped by her Dr. I called her son Giorgio who found bottles of Carvedilol 3.125mg, Furosemide 20mg, Lisinopril 20mg, Pantoprazole 40mg and Spironolactone 50mg tabs but does not know if she is taking her medications as he is not on top of her like that. He was able to confirm she finished her Cefuroxime Axetil regimen in the last week. He was not able to give me any info about the Dr's appointment either and was not sure when she last took her medications or if she is taking anything right now but the patient stated she took a small white pill and another pill last night, but I don't know the names of them I utilized claims and medical records and current and past notes to confirm what I could on the med rec.
--- NOTE | 2024-03-08 15:30 | P.CONNP_ITS ---
History of Present Illness Reason for Consult Consult date: 03/08/24 Chief Complaint Chief complaint: RICHARD, hyperkalemia History of Present Illness Narrative: Pt is a 73 y/o female with a medical history of Hep C cirrhosis with asciates requiring large volume paracentesis, history of upper GIB 2/2 esophageal varices, HTN, hemorrhoids, anxiety, iron deficiency anemia. Recent admission 02/22-02/24 for abdominal distension and e.coli UTI presented 03/08 for evaluation of abnormal labs after paracentesis earlier in the day. 6L reportedly removed. prescribed spironolactone, lasix and lisinopril which were reportedly stopped a few days prior to presentation. creatinine 1.39 on 02/23; 02/28 creatinine 1.83, creatinine 03/08 is 1.96 K5.7, Na 133, serum bicarb 19 blood pressures stable 120s-130s/60s pt states her urine output has been less than usual, thinks she last urinated this a.m. denies pain with urination, difficulty emptying bladder, flank pain, blood in urine states last few days prior to admission, poor PO intake of food and fluid, states she had a poor appetite and not feeling herself denies shortness of breath currently, states was dyspneic but this improved with paracentesis earlier today denies chest pain, dizziness, abdominal pain denies constipation, reports increased BMs, thinks 2-3 yesterday, denies diarrhea. denies other concerns, symptoms Review of Systems Constitutional: Reports fatigue, Denies headache(s), Reports lethargy and Reports poor appetite Denies dizziness and Denies headache(s) Cardiovascular: Denies chest pain, Denies leg edema, Denies lightheadedness and Denies dyspnea Respiratory: Denies cough and Denies dyspnea Gastrointestinal: Denies abdominal pain, Denies constipation, Denies diarrhea, Denies nausea and Denies vomiting Genitourinary: Denies hematuria, Denies difficulty voiding, Denies dysuria, Denies flank pain and Denies urinary incontinence Musculoskeletal: Denies back pain, Denies arthralgias and Denies muscle cramps Skin/Breast: Denies rash Denies dizziness and Denies headache(s) Endocrine: Reports fatigue PMFSH Past Medical History Medical History Prolapsed hemorrhoids Hx of gastritis Hiatal hernia Liver cirrhosis Anxiety HTN (hypertension) Hepatitis C Anemia Family History Family History Father Diabetes Paternal Grandmother Diabetes Mother Alzheimer disease Surgical History Surgical History History of esophagogastroduodenoscopy (EGD) Hx of cataract surgery Hx of colonoscopy Social History Social History Household Members: Children Housing: House Are you a primary healthcare social worker to a significant other at home: No Do you presently have visiting nurse or other home services: No Alcohol intake: former Patient Tobacco Use Status: Current everyday Tobacco user Tobacco use type: Cigarette Cigarettes Per Day: 2 Smoked in Last 30 Days: No Second Hand Smoke Exposure: No Use of substances other than those prescribed or required for medical reasons: No Advance Directives: No Advance Directives Information Provided: Yes Do you have a plan to hurt others: No Plan service: No Current occupational status: unemployed Meds Allergies Allergy/AdvReac Type Severity Reaction Status Date / Time No Known Allergies Allergy Verified 03/08/24 13:11 Active Medications: Current Medications Albumin Human (Kedbumin 25 %) 100 mls @ 100 mls/hr IV Q1H [facility] Stop: 03/08/24 15:59 Last Admin: 03/08/24 14:22 Dose: 100 mls/hr Home Medications ?Medication ?Instructions ?Recorded ?Confirmed ?Last Taken ?Type blood pressure test kit-large #1 ea 08/08/22 03/08/24 Unknown History Physical Exam Vital Signs: Last Vital Signs Temp 98.0 F 03/08/24 14:00 Pulse 71 03/08/24 14:00 Resp 15 03/08/24 14:00 BP 120/59 L 03/08/24 14:00 Pulse Ox 96 03/08/24 14:00 O2 Del Method Room Air 03/08/24 14:00 BMI result Body Mass Index 21.6 Const General: no acute distress, alert and awake Resp Effort & Inspection: normal respiratory effort and able to speak in complete sentences Auscultation: clear to auscultation bilaterally Cardio Jugular venous distension: no JVD Rate: regular rate Rhythm: regular rhythm Heart sounds: S1 normal heart sound present and S2 normal heart sound present GI Inspection: Yes distended Palpation (GI): Soft to palpation and nontender General: Yes no CVA tenderness Back/Spine/Pelvis Back: no CVA tenderness Skin Lesions: no lesions Rashes: no rashes Extrem General: Yes edema Assessment and Plan (1) RICHARD (acute kidney injury): Status: Acute (2) Hepatic cirrhosis due to chronic hepatitis C infection: Status: Acute Plan Patient with RICHARD most likely secondary to hypoperfusion from large volume paracentesis and reduced PO intake will check urine sodium as HRS also on differential recommend albumin 25gm q6h daily for 3 days for volume expansion recommend to continue to hold diuretics, LEXI inhibitor avoid nephrotoxic medications recommend regular blood pressure and I&O monitoring recommend daily electrolyte and renal function studies continue supportive care Discussed with Dr Sawyer Procedures Date of Service Date of Service: 03/08/24
[2024-03-08] MEDS: Sodium Zirconium Cyclosilicate 10 GM POWD.PACK PO (15:39)
--- NOTE | 2024-03-08 15:43 | PM.IMHP ---
History of Present Illness Date of Service: 03/08/24 Attending physician on admission: [facility] Chief Complaint: abnormal labs Patient is a 73-year-old female with a past medical history significan for decompensated cirrhosis secondary to hepatitis-C (just completed Mavyret treatment) with ascites and frequent large volume paracentesis, history upper GI bleed secondary to esophageal varices, hypertension, hemorrhoids, anxiety, iron-deficiency anemia, who presented to the ED today after paracentesis with 6 L drawn off due to abnormal labs. She did have a recent admission from 02/22-02/24 due to ascites, hyperchloremic metabolic acidosis and UTI. She reports that she has felt very weak at home and has not been eating and drinking much. Recently Dr. Marks discontinued her LEXI inhibitor, Lasix and spironolactone for the past 2-3 days, pt is unsure why. She is a very poor historian. She denies any chest pain or shortness of breath. She has some abdominal discomfort secondary to the paracentesis today. She has okay urine output without any dysuria or frequency but does complain of frequent bowel movements in the morning, mostly loose stool. She takes lactulose daily. Review of Systems Constitutional: Constitutional: Denies body ache(s), Denies chills, Reports fatigue, Denies fever(s) and Denies headache(s) Eyes: Eyes: Denies decreased night vision ENT: Denies headache(s), Denies nasal congestion and Denies sore throat Cardiovascular: Cardiovascular: Denies chest pain, Denies rapid heart rate, Denies leg edema and Denies dyspnea Respiratory: Respiratory: Denies chest congestion, Denies cough and Denies dyspnea Gastrointestinal: Gastrointestinal: Denies constipation, Reports loose stools, Denies nausea and Denies vomiting Genitourinary: Genitourinary: Denies dysuria, Denies urinary hesitancy and Denies urinary urgency Musculoskeletal: Musculoskeletal: Denies myalgias and Denies muscle weakness Integumentary/Breasts: Skin/Breast: Denies rash Neurologic: Denies headache(s) and Reports memory loss (poor memory, chronic) Psychiatric: Psychiatric: Reports memory loss (poor memory, chronic) Endocrine: Endocrine: Reports fatigue [facility] Medical History Prolapsed hemorrhoids Hx of gastritis Hiatal hernia Liver cirrhosis Anxiety HTN (hypertension) Hepatitis C Anemia Cognitive capacity: poor historian due to poor memory or lack of medical insight Family History Father Diabetes Paternal Grandmother Diabetes Mother Alzheimer disease Surgical History History of esophagogastroduodenoscopy (EGD) Hx of cataract surgery Hx of colonoscopy Social History Household Members: Children Housing: House Are you a primary residential child care counselor to a significant other at home: No Do you presently have visiting nurse or other home services: No Alcohol intake: former Patient Tobacco Use Status: Current everyday Tobacco user Tobacco use type: Cigarette Cigarettes Per Day: 2 Smoked in Last 30 Days: No Second Hand Smoke Exposure: No Use of substances other than those prescribed or required for medical reasons: No Advance Directives: No Advance Directives Information Provided: Yes Do you have a plan to hurt others: No Plan service: No Current occupational status: unemployed Meds Allergies Allergy/AdvReac Type Severity Reaction Status Date / Time No Known Allergies Allergy Verified 03/08/24 13:11 Active Medications: Current Medications Albumin Human (Kedbumin 25 %) 100 mls @ 100 mls/hr IV Q1H [facility] Stop: 03/08/24 15:59 Last Admin: 03/08/24 15:37 Dose: 100 mls/hr Home Medications ?Medication ?Instructions ?Recorded ?Confirmed ?Last Taken ?Type blood pressure test kit-large #1 ea 08/08/22 03/08/24 Unknown History Physical Exam Vital Signs and Narrative: Vital Signs: Last Vital Signs Temp 98.0 F 03/08/24 14:00 Pulse 71 03/08/24 14:00 Resp 15 03/08/24 14:00 BP 120/59 L 03/08/24 14:00 Pulse Ox 96 03/08/24 14:00 O2 Del Method Room Air 03/08/24 14:00 BMI result Body Mass Index 21.6 General: AOx3, no acute distress Resp: CTA bilaterally CVS: S1, S2, RRR GI: +BS, NT, distended, generalized tenderness, mostly RLQ where paracentesis was done Skin: Warm, dry Neuro: Cranial nerves II-XII grossly intact bilaterally. Motor grossly intact bilaterally Extremities: No edema Psych: Appropriate affect Assessment and Plan (1) RICHARD (acute kidney injury): Status: Acute (2) Hepatic cirrhosis due to chronic hepatitis C infection: Status: Acute (3) Hyperkalemia: Status: Acute Plan Patient is a 73-year-old female with a past medical history significant for decompensated cirrhosis secondary to hepatitis-C (just completed Mavyret treatment) with ascites and frequent large volume paracentesis, history upper GI bleed secondary to esophageal varices, hypertension, hemorrhoids, anxiety, iron-deficiency anemia, who presented to the ED today after paracentesis with 6 L drawn off due to abnormal labs. labs consistent with elevated creatinine of 1.96, sodium low at 133, potassium elevated at 5.7. Albumin normal, ammonia normal. acute RICHARD - secondary to hepatorenal syndrome vs hypoperfusion from large volume paracentesis today - defer treatment to nephrology, consult put in by ED - albumin given in ED, level normal - holding previous diuretics and LEXI inhibitor - hold IVF hyperkalemia - no EKG changes - lokelma given - monitor with tele - repeat CMP tomorrow decompensated cirrhosis secondary to hepatitis-C (just completed Mavyret treatment) with ascites - s/p paracentesis today - continue lactulose daily - monitor for need for repeat paracentesis while here hx UGI bleed/ILDEFONSO - H+H stable - monitor CBC HTN - BP normal, not on meds currently full code [place] prophy: pneumoboots Pt with acute RICHARD and hyperkalemia likely secondary to poor PO intake and large volume paracentesis today vs hepatorenal syndrome, requiring admission for at least 2 midnights stay for treatment and monitoring. Quality Stroke Does the patient have a stroke diagnosis?: No VTE Prior VTE?: No VTE Risk Level:: Medical - moderate - high VTE Device Contraindication: N/A - Device Ordered VTE Drug Contraindication: Treatment Not Indicated
[2024-03-08 16:07] LABS: Appearance Urine Cloudy; Color Urine Dark Yellow; Glucose Urine UA Negative (Negative); Leukocyte Esterase Urine Large (3+) (Negative); Nitrite Urine Negative (Negative); UMIC TRIGGER UACC YES; Urine Blood Negative (Negative); Urine Ketones Trace mg/dL (Negative); Urine Protein Negative (Neg-Trace)
[2024-03-08 16:20] LABS: Bacteria Urine None Seen (None Seen); RBC Urine 0-2 /HPF (0-2); UACC Culture Trigger YES
[2024-03-08 16:29] LABS: Osmolality Urine 537 mosm/kg (373-1093)
[2024-03-08 16:30] LABS: Sodium Urine Random < 20.0 mmol/L
[2024-03-08 16:50] LABS: INTERNATIONAL NORM RATIO 1.3 (0.9-1.1); Prothrombin Time 15.4 SEC (10.9-12.4)
--- NOTE | 2024-03-08 17:43 | PM.GICN ---
History of Present Illness Data of Consult Service Date: 03/08/24 Requesting physician: Eleanor Townsend Primary Care Provider: Brayden Rivas MD [facility] Reason for consult: Cirrhosis with ascites and elevated renal function 73-year-old female with decompensated cirrhosis secondary to hepatitis-C (treated with Mavyret 18 months ago) with ascites and frequent large volume paracentesis, history upper GI bleed secondary to esophageal varices, hypertension, hemorrhoids, anxiety, PVD, hx of gastric ulcers, iron-deficiency anemia, sent to [facility] [place] today due to abnormal labs(elevated BUN, Cr and K). Pt was hospitalized at [facility] 02/22-02/24 due to ascites, hyperchloremic metabolic acidosis and UTI. Pt has slowly worsening renal function over the past 2 weeks. She was advised to stop taking diuretics and lisinopril Repeat labs today showed continued worsening of BUN and Cr and pt advised to go to the ER for evaluation and admission Pt had a therapeutic paracentesis today with removal of 6 L of ascitic fluid. Pt reports a poor appetite with decreased PO intake and has felt very weak at home. She is a poor historian and has a habit of going off in tangents during her conversation and have to be redirected. She denies any chest pain or shortness of breath. She has some abdominal discomfort secondary to the paracentesis today. Pt denies dysuria or frequency and reports a normal urine output Pt takes lactulose daily and reports loose stools. Review of Systems Review of Systems: Yes all other systems are reviewed and are negative PMFSH Past Medical History Medical History Prolapsed hemorrhoids Hx of gastritis Hiatal hernia Liver cirrhosis Anxiety HTN (hypertension) Hepatitis C Anemia Family History Family History Father Diabetes Paternal Grandmother Diabetes Mother Alzheimer disease Surgical History Surgical History History of esophagogastroduodenoscopy (EGD) Hx of cataract surgery Hx of colonoscopy Social History Social History Household Members: Family Housing: House Are you a primary clinical care manager to a significant other at home: No Do you presently have visiting nurse or other home services: No Alcohol intake: former Patient Tobacco Use Status: Former Tobacco user Tobacco use type: Cigarette Cigarettes Per Day: 2 Second Hand Smoke Exposure: No Advance Directives: No Advance Directives Information Provided: No Do you have a plan to hurt others: No Plan service: No Current occupational status: unemployed Meds Allergies Allergy/AdvReac Type Severity Reaction Status Date / Time No Known Allergies Allergy Verified 03/14/24 08:04 Active Medications: Current Medications Acetaminophen (Acetaminophen 325 Mg Tablet) 650 mg PO Q6H PRN PRN Reason: Pain, Mild (Pain Scale 1-3), fever or headache Calcium Carbonate (Calcium Carbonate 750 Mg Tab.Chew) 750 mg PO Q4H PRN PRN Reason: Heartburn Albumin Human (Kedbumin 25 %) 100 mls @ 100 mls/hr IV Q6H [facility] Stop: 03/09/24 15:59 Lactulose (Lactulose 20 Gm/30 Ml Solution) 10 gm PO DAILY [facility] Magnesium Hydroxide (Milk Of Magnesia 30 Ml Oral.Susp) 30 ml PO DAILY PRN PRN Reason: Constipation Melatonin (Melatonin 3 Mg Tablet) 6 mg PO BEDTIME PRN PRN Reason: Insomnia Ondansetron HCl (Ondansetron Hcl 4 Mg/2 Ml Vial) 4 mg IVPUSH Q8H PRN PRN Reason: Nausea and Vomiting Sodium Chloride (0.9 % Sodium Chloride Flush 3 Ml Syringe) 3 ml IVFLUSH QSHIFT [facility] Last Admin: 03/08/24 16:55 Dose: Not Given Home Medications ?Medication ?Instructions ?Recorded ?Confirmed ?Last Taken ?Type blood pressure test kit-large #1 ea 08/08/22 03/08/24 Unknown History Physical Exam Vital Signs: Vital Signs: Last Vital Signs Temp 97 F 03/08/24 17:40 Pulse 80 03/08/24 17:40 Resp 18 03/08/24 17:40 BP 119/65 03/08/24 17:40 Pulse Ox 100 03/08/24 17:40 O2 Del Method Room Air 03/08/24 17:40 BMI result Body Mass Index 21.6 Const: General: no acute distress, alert and awake Resp: Effort & Inspection: normal respiratory effort and able to speak in complete sentences Auscultation: clear to auscultation bilaterally Cardio: Jugular venous distension: no JVD Rate: regular rate Rhythm: regular rhythm Heart sounds: S1 normal heart sound present and S2 normal heart sound present GI: Inspection: Yes distended Palpation (GI): Soft to palpation and nontender : General: Yes no CVA tenderness Back/Spine/Pelvis: Back: no CVA tenderness Skin: Lesions: no lesions Rashes: no rashes Extrem: General: Yes edema Results Labs 03/10/24 07:01 03/10/24 07:01 Labs: Urine 03/08/24 Range/Units 15:56 Urine Color Dark Yellow Urine Appearance Cloudy Urine pH 5.0 (5.0-9.0) Ur Specific [place] 1.020 (1.005-1.025) Urine Protein Negative (Neg-Trace) mg/dL Urine Glucose (UA) Negative (Negative) mg/dL Assessment and Plan (1) Hepatic cirrhosis due to chronic hepatitis C infection: Status: Inactive (2) Iron deficiency anemia: Status: Inactive (3) Hyperkalemia: Status: Resolved (4) RICHARD (acute kidney injury): Status: Resolved Plan 73-year-old female with decompensated cirrhosis secondary to hepatitis-C (treated with Mavyret 18 months ago) with ascites and frequent large volume paracentesis, history upper GI bleed secondary to esophageal varices, hypertension, hemorrhoids, anxiety, PVD, hx of gastric ulcers, iron-deficiency anemia, sent to [facility] [place] today due to abnormal labs(elevated BUN, Cr and K). Pt was hospitalized at [facility] 02/22-02/24 due to ascites, hyperchloremic metabolic acidosis and UTI. Pt has slowly worsening renal function over the past 2 weeks. She was advised to stop taking diuretics and lisinopril Repeat labs today showed continued worsening of BUN and Cr worrisome for pre-renal azotemia versus HRS RECOMMENDATIONS: 1. Agree with IV albumin x 3 days and PO sodium zirconium for hyperkalemia 2. Hold beta blockers (pt is on carvedilol due to esophageal varices) 3. Urine culture to rule out recurrent UTI 4. Appreciate Nephrology consult Pt is scheduled for a FU appt in the GI clinic on 04/18/24 Procedures Date of Service Date of Service: 03/18/24
[2024-03-08] MEDS: 0.9 % Sodium Chloride Flush 3 ML SYRINGE IVFLUSH (21:03)
[2024-03-09] VITALS (7 sets, daily range): BP systolic 94–142; BP diastolic 51–76; PULSE 71–85; RESP 18; TEMP 36.2–36.6; O2SAT 96–100
[2024-03-09] MEDS: Albumin Human 25 % 100 ML IV ×3 (03:42→14:39)
[2024-03-09 07:48] LABS: MANUAL DIFF FLAG NO
[2024-03-09 08:07] LABS: Basophils Percent Auto 0.6 % (0-2); Eosinophils Absolute Auto 0.2 X10*3/uL (0.0-0.4); Eosinophils Percent Auto 3.1 % (0-4); Hematocrit 37.2 % (37.0-47.0); Hemoglobin 12.1 g/dl (12.0-16.0); Imm Gran Abs Auto 0.02 X10*3/uL (0.00-0.03); Imm Gran Pct Auto 0.4 % (0.0-0.4); Lymphocytes Absolute Auto 0.7 X10*3/uL (1.2-4.9); Lymphocytes Percent Auto 13.6 % (20-40); Mean Corpuscular HGB Conc 32.5 g/dl (31.0-35.0); Mean Corpuscular Hemoglobin 27.9 pg (27.0-33.0); Mean Corpuscular Volume 85.7 fL (80.0-98.0); Mean Platelet Volume 10.5 fL (9.4-12.3); Monocytes Absolute Auto 0.5 X10*3/uL (0.1-1.2); Neutrophils Absolute Auto 3.5 x10*3/uL (2.0-8.3); Neutrophils Percent Auto 72.3 % (45-73); Platelet Count 160 X10*3/uL (160-400); Red Blood Count 4.34 X10*6/uL (4.20-5.50); Red Cell Distribution Width 15.7 % (11.0-16.0); White Blood Count 4.8 X10*3/uL (4.8-10.8)
[2024-03-09 08:25] LABS: Alanine Aminotransferase 48 U/L (0-31); Albumin Level 4.5 g/dL (3.5-5.0); Alkaline Phosphatase 203 U/L (39-117); Anion Gap 17 (12-20); Aspartate Amino Transferase 131 U/L (5-31); Bilirubin Total 2.4 mg/dL (0.0-1.0); Blood Urea Nitrogen 51 mg/dL (9-16); Calcium 9.1 mg/dL (8.4-10.2); Carbon Dioxide 19 mmol/L (22-29); Chloride 105 mmol/L (96-108); Creatinine Clr Calc Pharmacy 21.7; Estimated Glomerular Filt Rate 27; Glucose Random 117 mg/dL (60-115); Potassium 4.5 mmol/L (3.3-5.1); Sodium 136 mmol/L (135-145); Total Protein 6.9 g/dL (6.5-8.0)
[2024-03-09] MEDS: Lactulose 20 GM/30 ML SOLUTION 10 GM PO (08:46)
[2024-03-09] MEDS: 0.9 % Sodium Chloride Flush 3 ML SYRINGE IVFLUSH ×2 (08:47→14:43)
--- NOTE | 2024-03-09 09:37 | HO.PM.IMPN ---
Subjective Subjective Date of Service: 03/10/24 Review of Systems Follow up weakness doing better today no abd pain,nausea or vomiting Physical Exam Vital Signs: Vital Signs: Last Vital Signs Temp 97.4 F 03/09/24 08:00 Pulse 76 03/09/24 08:00 Resp 18 03/09/24 08:00 BP 124/68 03/09/24 08:00 Pulse Ox 99 03/09/24 08:00 O2 Del Method Room Air 03/09/24 08:00 BMI result Body Mass Index 21.6 Appearing in no acute distress lung sounds are clear to auscultation heart regular rate rhythm, clear S1, S2 positive bowel sounds, abdomen is soft, nontender neuro patient is alert x3, no focal deficits Objective Data Active Medications Acetaminophen (Acetaminophen 325 Mg Tablet) 650 mg PO Q6H PRN PRN Reason: Pain, Mild (Pain Scale 1-3), fever or headache Calcium Carbonate (Calcium Carbonate 750 Mg Tab.Chew) 750 mg PO Q4H PRN PRN Reason: Heartburn Albumin Human (Kedbumin 25 %) 100 mls @ 100 mls/hr IV Q6H [facility] Stop: 03/09/24 15:59 Last Admin: 03/09/24 08:47 Dose: 100 mls/hr Documented By: BRINA Lactulose (Lactulose 20 Gm/30 Ml Solution) 10 gm PO DAILY [facility] Last Admin: 03/09/24 08:46 Dose: 10 gm Documented By: BRINA Magnesium Hydroxide (Milk Of Magnesia 30 Ml Oral.Susp) 30 ml PO DAILY PRN PRN Reason: Constipation Melatonin (Melatonin 3 Mg Tablet) 6 mg PO BEDTIME PRN PRN Reason: Insomnia Ondansetron HCl (Ondansetron Hcl 4 Mg/2 Ml Vial) 4 mg IVPUSH Q8H PRN PRN Reason: Nausea and Vomiting Sodium Chloride (0.9 % Sodium Chloride Flush 3 Ml Syringe) 3 ml IVFLUSH QSHIFT [facility] Last Admin: 03/09/24 08:47 Dose: 3 ml Documented By: BRIAN Labs 03/09/24 07:43 03/09/24 07:43 Labs: Laboratory Results - last 24 hr 03/08/24 03/08/24 03/09/24 15:56 16:39 07:43 MCV 85.7 MCH 27.9 MCHC 32.5 RDW 15.7 Plt Count 160 MPV 10.5 Immature Gran % (Auto) 0.4 Neut % (Auto) 72.3 Lymph % (Auto) 13.6 L [place] % (Auto) 10.0 Eos % (Auto) 3.1 Baso % (Auto) 0.6 Lymph # (Auto) 0.7 L [place] # (Auto) 0.5 Eos # (Auto) 0.2 Baso # (Auto) 0.0 Abs Immat Gran (auto) 0.02 Absolute Neuts (auto) 3.5 Absolute Nucleated RBC 0.000 Nucleated RBC % (auto) 0.0 PT 15.4 H INR 1.3 H Anion Gap 17 Estim Creat Clear Calc 21.7 Estimated GFR 27 Random Glucose 117 H Calcium 9.1 Total Bilirubin 2.4 H AST 131 H ALT 48 H Alkaline Phosphatase 203 H Total Protein 6.9 Albumin 4.5 Urine Color Dark Yellow Urine Appearance Cloudy Urine pH 5.0 Ur Specific [place] 1.020 Urine Protein Negative Urine Glucose (UA) Negative Urine Ketones Trace Urine Blood Negative Urine Nitrite Negative Ur Leukocyte Esterase Large (3+) H Urine RBC 0-2 Urine WBC 11-20 Ur Squamous Epith Cells 6-10 Urine Bacteria None Seen Hyaline Casts 6-10 Urine Osmolality 537 Ur Random Sodium < 20.0 Assessment and Plan (1) RICHARD (acute kidney injury): Status: Acute Plan Patient is a 73-year-old female with a past medical history significant for decompensated cirrhosis secondary to hepatitis-C (just completed Mavyret treatment) with ascites and frequent large volume paracentesis, history upper GI bleed secondary to esophageal varices, hypertension, hemorrhoids, anxiety, iron-deficiency anemia, who presented to the ED today after paracentesis with 6 L drawn off due to abnormal labs. labs consistent with elevated creatinine of 1.96, sodium low at 133, potassium elevated at 5.7. Albumin normal, ammonia normal. Acute RICHARD - secondary to hepatorenal syndrome vs hypoperfusion from large volume paracentesis 03/08 albumin given in ED, level normal hold IVF for now nephrology consultation pending hyperkalemia. Resolved no EKG changes lokelma given monitor with tele decompensated cirrhosis secondary to hepatitis-C (just completed Mavyret treatment) with ascites s/p paracentesis 03/08 continue lactulose daily monitor for need for repeat paracentesis while here hx UGI bleed/ILDEFONSO H+H stable monitor CBC HTN BP normal, not on meds currently full code [place] prophy: pneumoboots Quality Stroke Does the patient have a stroke diagnosis?: No VTE Prior VTE?: No VTE Risk Level:: Medical - moderate - high VTE Device Contraindication: N/A - Device Ordered VTE Drug Contraindication: Treatment Not Indicated
--- NOTE | 2024-03-09 13:02 | MHC.CM.PN ---
IMM 03/09/24, Pt lives with her son, she is independent, no home health services or DME. PCP confirmed: Dr. Rivas, HCP discussed, copy requested. Son to transport home at DC, DCP: home, self care, CM to follow for DC needs.
[2024-03-09] MEDS: Cocoa Butter/Zinc Oxide SUPP.RECT 1 SUPP PR (21:57)
[2024-03-10 04:00] VITALS: BP 108/59; PULSE 79; RESP 20; TEMP 36.6; O2SAT 97
[2024-03-10 07:22] LABS: MANUAL DIFF FLAG NO
[2024-03-10 07:24] LABS: PLT CLUMP 1; Red Cell Distribution Width 15.6 % (11.0-16.0); SCAN SMEAR FLAG 1
[2024-03-10 07:26] LABS: Basophils Percent Auto 0.8 % (0-2); Eosinophils Absolute Auto 0.2 X10*3/uL (0.0-0.4); Eosinophils Percent Auto 4.2 % (0-4); Imm Gran Abs Auto 0.01 X10*3/uL (0.00-0.03); Imm Gran Pct Auto 0.2 % (0.0-0.4); Lymphocytes Absolute Auto 0.7 X10*3/uL (1.2-4.9); Lymphocytes Percent Auto 12.9 % (20-40); Mean Corpuscular HGB Conc 33.3 g/dl (31.0-35.0); Mean Corpuscular Hemoglobin 27.6 pg (27.0-33.0); Mean Corpuscular Volume 82.9 fL (80.0-98.0); Mean Platelet Volume 10.3 fL (9.4-12.3); Monocytes Absolute Auto 0.6 X10*3/uL (0.1-1.2); Monocytes Percent Auto 11.1 % (2-11); Neutrophils Absolute Auto 3.7 x10*3/uL (2.0-8.3); Neutrophils Percent Auto 70.8 % (45-73); Red Blood Count 4.34 X10*6/uL (4.20-5.50)
[2024-03-10 07:27] LABS: Platelet Count 128 X10*3/uL (160-400); White Blood Count 5.2 X10*3/uL (4.8-10.8)
[2024-03-10 07:42] LABS: Alanine Aminotransferase 64 U/L (0-31); Albumin Level 4.3 g/dL (3.5-5.0); Alkaline Phosphatase 222 U/L (39-117); Anion Gap 15 (12-20); Aspartate Amino Transferase 190 U/L (5-31); Bilirubin Total 2.5 mg/dL (0.0-1.0); Blood Urea Nitrogen 42 mg/dL (9-16); Calcium 8.8 mg/dL (8.4-10.2); Carbon Dioxide 18 mmol/L (22-29); Chloride 107 mmol/L (96-108); Creatinine Clr Calc Pharmacy 26.1; Estimated Glomerular Filt Rate 33; Glucose Random 101 mg/dL (60-115); Potassium 4.5 mmol/L (3.3-5.1); Sodium 135 mmol/L (135-145); Total Protein 6.7 g/dL (6.5-8.0)
[2024-03-10 08:00] VITALS: BP 123/77; PULSE 69; RESP 14; TEMP 36.4; O2SAT 98
--- NOTE | 2024-03-10 08:55 | PM.DS ---
DS: Providers Provider Date of Service: 03/10/24 Date of admission: 03/08/24 15:47 Primary care physician: Brayden Rivas MD Consults: 03/08/24 14:45 Consult to Nephrology Stat Consulting Provider: [facility] Reason for consultation: RICHARD, ?HRS DS: Diagnosis Discharge Diagnosis (1) RICHARD (acute kidney injury): Status: Acute DS: Summary Hospital Course Hospital Course: History and physical as per admitting provider. 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 She did have a recent admission from 02/22-02/24 due to ascites, hyperchloremic metabolic acidosis and UTI. She reports that she has felt very weak at home and has not been eating and drinking much. Recently Dr. Marks discontinued her LEXI inhibitor, Lasix and spironolactone for the past 2-3 days, pt is unsure why. She is a very poor historian. She denies any chest pain or shortness of breath. She has some abdominal discomfort secondary to the paracentesis today. She has okay urine output without any dysuria or frequency but does complain of frequent bowel movements in the morning, mostly loose stool. She takes lactulose daily. 73-year-old woman with a history of decompensated cirrhosis secondary to hepatitis C treated for acute UTI secondary to hepatorenal syndrome from large volume paracentesis 03/08/2024. She was given albumin, IV fluids were held. She was seen evaluated by Nephrology. RICHARD has improved significantly. He should check BMP in 2 days. She was also noted to have hyperkalemia with no EKG changes. She was given Lokelma in no arrhythmia noted on EKG. Hypokalemia has since resolved. Patient denies any abdominal pain nausea, vomiting. Would like to go home, safe for discharge today continuing her lactulose at home and following up with GI for her regularly scheduled paracentesis Hypertension. Stable blood pressure during hospitalization not on medications currently Time Attestation Discharge Coordination Time (in mins): 35 Quality: Safe Use of Opioids Does Pt have an Active Cancer Diagnosis on the Problem List?: No Quality: Stroke Does the patient have a stroke diagnosis?: No Physical Exam Vital Signs: Vital Signs: Last Vital Signs Temp 97.5 F 03/10/24 08:00 Pulse 69 03/10/24 08:00 Resp 14 03/10/24 08:00 BP 123/77 03/10/24 08:00 Pulse Ox 98 03/10/24 08:00 O2 Del Method Room Air 03/10/24 08:00 BMI result Body Mass Index 21.6 Appearing in no acute distress head is normocephalic atraumatic eyes pupils are PERRLA sclera is anicteric mouth throat mucous membranes are intact and moist neck is supple no lymphadenopathy, no JVD noted lung sounds are clear to auscultation heart regular rate rhythm, clear S1, S2 positive bowel sounds, abdomen is soft, nontender neuro patient is alert x3, no focal deficits DS: Data Data Completed and Pending Completed studies during hospitalization [Text1]: Procedures Drainage of Peritoneal Cavity, Percutaneous Approach (02/23/24) Labs on day of discharge: Laboratory Results - last 24 hr 03/10/24 07:01 WBC 5.2 RBC 4.34 Hgb 12.0 Hct 36.0 L MCV 82.9 MCH 27.6 MCHC 33.3 RDW 15.6 Plt Count 128 L MPV 10.3 Immature Gran % (Auto) 0.2 Neut % (Auto) 70.8 Lymph % (Auto) 12.9 L [place] % (Auto) 11.1 H Eos % (Auto) 4.2 H Baso % (Auto) 0.8 Lymph # (Auto) 0.7 L [place] # (Auto) 0.6 Eos # (Auto) 0.2 Baso # (Auto) 0.0 Abs Immat Gran (auto) 0.01 Absolute Neuts (auto) 3.7 Absolute Nucleated RBC 0.000 Nucleated RBC % (auto) 0.0 Sodium 135 Potassium 4.5 Chloride 107 Carbon Dioxide 18 L Anion Gap 15 BUN 42 H Creatinine 1.54 H Estim Creat Clear Calc 26.1 Estimated GFR 33 Random Glucose 101 Calcium 8.8 Total Bilirubin 2.5 H AST 190 H ALT 64 H Alkaline Phosphatase 222 H Total Protein 6.7 Albumin 4.3 Preliminary micro results at discharge 03/08/24 15:56 Urine Culture - Preliminary Urine clean catch - Clean Catch Midstream No growth to date. Discharge Plan Discharge Anticipated Discharge Date/Time: 03/10/24 08:51 Patient Disposition: Home Health Service Discharge Diagnosis: RICHARD Hyperkalemia Referrals: Brayden Rivas MD [Primary Care Provider] - 1 Week Discharge Medications: Continued lactulose 10 gram/15 mL (15 mL) solution 10 g PO DAILY 30 Days Qty: 450 2RF (DME) blood pressure test kit-large Kit See Rx Instructions .ROUTE DIRECTED Qty: 1 Rx Instructions: As directed Discharge Orders: Discharge Order (Routine); Ordered 03/10/24 Ordered By: Hui Knight Diet: Advance to usual diet Activity on Discharge: As tolerated Stand Alone Forms: Patient Portal Discharge page Print Language: Greek Other Ambulatory Orders: Basic Metabolic Panel (Routine) Timeframe: 2 Days Facility: [facility] - Location: Laboratory Ordered By: Hui Knight Liver Panel (Routine) Timeframe: 2 Days Facility: [facility] - Location: Laboratory Ordered By: Hui Knight Care Plan Goals: Follow-up with gastroenterology for scheduled paracentesis Health Concerns: RICHARD Hyperkalemia Plan of Treatment: Follow-up with primary care provider as needed Take all medications as prescribed Assessment: See discharge summary
[2024-03-10] MEDS: 0.9 % Sodium Chloride Flush 3 ML SYRINGE IVFLUSH (08:57)
[2024-03-10] MEDS: Lactulose 20 GM/30 ML SOLUTION 10 GM PO (08:57)
--- NOTE | 2024-03-10 09:33 | W.MHC.F2F ---
Service Date Service Date: 03/10/24 Encounter Date of encounter: 03/10/24 Reasons for Services Signs and symptoms assessed: Liver cirrhosis RICHARD Reason for long-term: CV/CP assess and/or care, GI/ assessment and other (labs in 2 days ) Homebound: Leaving the home is medically contraindicated at this time without the asist of a device and/or another person due th the listed conditions above and below. Reason homebound: unsteady gait / fall risk and weakness related to hospital stay Certification: Based on the above findings, I certify that this patient is confined to the home and needs intermittent long-term care, physical therapy and/or speech therapy, or continues to need occupational therapy. The patient is under my care, and I have initiated the establishment of the plan of care. The patient will be followed by a physician who will periodically review the plan of care. Time Spent With Patient Time: Total time managing care of this patient today ____ minutes.
--- NOTE | 2024-03-10 09:52 | MHC.CM.PN ---
Pt has been medically cleared for DC, her son will transport her home, she will have home care services from [facility].
== END 2024-03-10 10:09 | disposition home health service (06) | DRG 682 ==
LOC: HO.ED 14:47 → HO.EDOVER 15:47 → HO.IMC 16:14
PROVIDERS: Physician Assistant; Admitting Provider Physician Assistant; Emergency Provider Emergency Medicine; PCP Internal Medicine; Visit Provider Nurse Practitioner Acute Care
DX: N17.9 Acute kidney failure, unspecified (principal); K76.7 Hepatorenal syndrome; R18.8 Other ascites; B18.2 Chronic viral hepatitis C; D50.9 Iron deficiency anemia, unspecified; I10 Essential (primary) hypertension; E87.5 Hyperkalemia; F17.210 Nicotine dependence, cigarettes, uncomplicated; K74.69 Other cirrhosis of liver; Z71.6 Tobacco abuse counseling; Z79.899 Other long term (current) drug therapy
CPT/HCPCS: 36415; 80053; 81001; 81003; 83935; 84300; 85025; 85610; 87086; 93005; 99285; P9047

== ENCOUNTER → 2024-03-08 13:09 | Outpatient (BNV) | payer OTHER, SELFPAY | PROVIDERS: Admitting Provider Physician Assistant; Emergency Provider Emergency Medicine; PCP Internal Medicine; Visit Provider Internal Medicine Cardiovascular Disease | DX: E87.5 Hyperkalemia (principal) | CPT/HCPCS: 93010 ==

== ENCOUNTER → 2024-03-08 15:47 | Outpatient (BNV) | payer OTHER, SELFPAY | PROVIDERS: Admitting Provider Physician Assistant; Emergency Provider Emergency Medicine; PCP Internal Medicine; Visit Provider Physician Assistant | DX: N17.9 Acute kidney failure, unspecified (principal); B18.2 Chronic viral hepatitis C; K74.60 Unspecified cirrhosis of liver; E87.5 Hyperkalemia | CPT/HCPCS: 99223; 99232; G0180 ==

== ENCOUNTER → 2024-03-08 15:47 | Outpatient (BNV) | payer OTHER, SELFPAY | PROVIDERS: Admitting Provider Physician Assistant; Emergency Provider Emergency Medicine; PCP Internal Medicine; Visit Provider Nurse Practitioner Family | DX: N17.9 Acute kidney failure, unspecified (principal); B18.2 Chronic viral hepatitis C; K74.60 Unspecified cirrhosis of liver | CPT/HCPCS: 99222 ==

== ENCOUNTER → 2024-03-08 15:47 | Outpatient (BNV) | payer OTHER, SELFPAY | PROVIDERS: Admitting Provider Physician Assistant; Emergency Provider Emergency Medicine; PCP Internal Medicine; Visit Provider Internal Medicine Gastroenterology | DX: B18.2 Chronic viral hepatitis C (principal); K74.60 Unspecified cirrhosis of liver; D50.9 Iron deficiency anemia, unspecified; E87.5 Hyperkalemia; N17.9 Acute kidney failure, unspecified | CPT/HCPCS: 99222 ==

== ENCOUNTER 2024-03-14 07:53 | Emergency (ER) | payer OTHER, SELFPAY ==
--- NOTE | ~2024-03-14 | XR_ITS ---
EXAMINATION: XR CHEST CLINICAL INFORMATION: Intubated, check ETT placement. COMPARISON: Most recent chest radiograph dated 02/23/2024. TECHNIQUE: Frontal view of the chest was obtained. FINDINGS: Endotracheal tube with its tip approximately 2.5 cm proximal to the connor. Diffuse interstitial prominence with patchy bilateral airspace opacities, most prominent in the right perihilar region, new when compared to the prior examination. No pleural effusion or pneumothorax. Stable cardiomediastinal silhouette. XR/XR chest 1V IMPRESSION: 1. Endotracheal tube with its tip approximately 2.5 cm proximal to the connor. 2. Diffuse interstitial prominence and patchy bilateral airspace opacities, most prominent in the right perihilar region, new when compared to the prior examination. Electronically signed by: Joshua Urbina MD 03/14/2024 09:19 AM SARA
[2024-03-14 08:01] VITALS: BP 80/52; BP 94/24; PULSE 90; PULSE 94; RESP 14; TEMP -17.7; TEMP 0; BMI 22.8
[2024-03-14] MEDS: Octreotide Acetate 100 MCG/ML AMPUL 50 MCG IVPUSH (08:11)
[2024-03-14] MEDS: ondansetron HCL 4 MG/2 ML VIAL IVPUSH (08:12)
[2024-03-14] MEDS: Pantoprazole Sodium 40 MG/10 ML VIAL IVPUSH (08:12)
[2024-03-14 08:16] LABS: MANUAL DIFF FLAG NO
[2024-03-14 08:17] LABS: Glucose, Whole Blood 94 mg/dL (60-115)
[2024-03-14 08:19] LABS: Basophils Percent Auto 0.1 % (0-2); Hematocrit 25.6 % (37.0-47.0); Hemoglobin 8.3 g/dl (12.0-16.0); Imm Gran Abs Auto 0.09 X10*3/uL (0.00-0.03); Imm Gran Pct Auto 0.7 % (0.0-0.4); Lymphocytes Percent Auto 8.2 % (20-40); Mean Corpuscular HGB Conc 32.4 g/dl (31.0-35.0); Mean Corpuscular Hemoglobin 28.2 pg (27.0-33.0); Mean Corpuscular Volume 87.1 fL (80.0-98.0); Mean Platelet Volume 11.3 fL (9.4-12.3); Monocytes Absolute Auto 0.7 X10*3/uL (0.1-1.2); Monocytes Percent Auto 5.5 % (2-11); Neutrophils Absolute Auto 10.3 x10*3/uL (2.0-8.3); Neutrophils Percent Auto 85.5 % (45-73); Platelet Count 209 X10*3/uL (160-400); Red Blood Count 2.94 X10*6/uL (4.20-5.50); Red Cell Distribution Width 17.2 % (11.0-16.0); White Blood Count 12.1 X10*3/uL (4.8-10.8)
[2024-03-14] MEDS: Ketamine HCl/NS 50 MG/5 ML SYRINGE 70 MG IVPUSH (08:22)
[2024-03-14] MEDS: Rocuronium Bromide 50 MG/5 ML VIAL IVPUSH (08:22)
[2024-03-14 08:24] LABS: Fibrinogen 209 MG/DL (259-690); INTERNATIONAL NORM RATIO 1.6 (0.9-1.1); Prothrombin Time 18.8 SEC (10.9-12.4)
[2024-03-14 08:33] LABS: COVID-19 Test Negative (Negative); IDNOW Serial# 08D9AD1C
[2024-03-14 08:41] LABS: Alkaline Phosphatase 185 U/L (39-117)
--- NOTE | 2024-03-14 08:42 | ED.GIBLEED ---
HPI - GI Bleed General Chief complaint: GI Bleed Stated complaint: VOMITING DARK BLOOD Time Seen by Provider: 03/14/24 09:07 Source: EMS Mode of arrival: EMS Limitations: altered mental status History of Present Illness ED Provider: SNOW Bee HPI Narrative: 73-year-old female history of hep hepatic cirrhosis due to chronic hepatitis-C, anxiety, hypertension, iron deficiency anemia presenting with upper and lower GI bleeding unclear when it started. Patient is altered, she is only alert to person not place time or situation unable to provide me an accurate history. At some point she did say she felt like her stomach was hurting and she had a large episode of vomiting blood. She also states that her stools have been black over the past few days. According to get AMS she does have a history of esophageal varices patient unable to confirm this. History and review of systems limited secondary to patient's altered mental status. On arrival to the emergency department concerns for airway therefore rapid sequence intubation as well as massive transfusion protocol initiated. Related Data Home Medications ?Medication ?Instructions ?Recorded ?Confirmed blood pressure test kit-large #1 ea 08/08/22 03/08/24 Previous Rx's ?Medication ?Instructions ?Recorded lactulose 10 gram/15 mL (15 mL) 10 g (15 mL) PO DAILY 30 days #450 02/25/24 oral solution mL Allergies Allergy/AdvReac Type Severity Reaction Status Date / Time No Known Allergies Allergy Verified 03/14/24 08:04 Review of Systems Review of Systems: Yes all other systems are reviewed and are negative PMFSH Past Medical History Source: old records reviewed and nursing notes reviewed Medical History Prolapsed hemorrhoids Hx of gastritis Hiatal hernia Liver cirrhosis Anxiety HTN (hypertension) Hepatitis C Anemia Surgical History History of esophagogastroduodenoscopy (EGD) Hx of cataract surgery Hx of colonoscopy Family History Family History Father Diabetes Paternal Grandmother Diabetes Mother Alzheimer disease Social History Social History Household Members: Family Housing: House Are you a primary customer care consultant to a significant other at home: No Do you presently have visiting nurse or other home services: No Alcohol intake: former Patient Tobacco Use Status: Former Tobacco user Tobacco use type: Cigarette Cigarettes Per Day: 2 Second Hand Smoke Exposure: No Advance Directives: No Advance Directives Information Provided: No Do you have a plan to hurt others: No Plan service: No Current occupational status: unemployed Physical Exam Vital Signs: Vital Signs: Last Vital Signs Temp 0 F L 03/14/24 08:01 Pulse 94 03/14/24 08:01 Resp 14 03/14/24 08:01 BP 94/24 L 03/14/24 08:01 O2 Del Method Room Air 03/14/24 08:01 FiO2 100 03/14/24 08:47 BMI result Body Mass Index 22.8 vss Appearance: Oriented only to person. + acute distress noted Head: Normocephalic, atraumatic, no step-offs or deformities Eyes: Pupils equal, round and reactive to light.? ENT: Patient has a large amount of dry blood around her mouth and in her mouth. Trouble controlling secretions. Neck: Normal inspection.? Neck supple.? CVS: Normal heart rate and rhythm.? Pulses normal.? Respiratory: No respiratory distress.? Breath sounds normal.? Abdomen: Distended abdomen, diffusely tender. Normoactive bowel sounds. Skin: Skin warm and dry.? Normal skin color.? Normal skin turgor.? Extremities: No lower extremity edema.? No calf ttp. Global weakness Neuro: Oriented only to person. No motor deficit.? No sensory deficit Course Reevaluation(s) Reevaluation #1: Patient's initial CBC with hemoglobin of 8.3 hematocrit 25.6 there is active bleeding so I suspect that patient's actual values are much lower than this. For this reason MTP ordered upon arrival. Patient's platelets 209. Patient's potassium 6.7, calcium gluconate ordered. Patient's carbon dioxide 8.0, patient now intubated, anion gap of 31 likely secondary to acute hypoxic respiratory failure, BUN greater than 125, creatinine 4.38. Patient's magnesium 3.6. Total bilirubin 3.6 and transaminases markedly elevated. Patient's history and physical exam consistent with hypovolemic shock due to upper and lower GI bleeding. Patient's PT 18.8, INR 1.6 with a low fibrinogen 209. [facility] closed to transfers. Patient was able to verbalize consent for acute blood transfusion, and intubation. Time: 08:57 Reevaluation #2: Patient COVID negative. Patient's lactic acid 12.4 this is likely a type B lactic acidosis from liver failure and respiratory failure when patient was having difficulty controlling secretions prior to intubation. I did give prophylactic Zosyn. At this time patient has received 4 units of PRBCs, 1 platelet, 2 units of FFP. She is currently on a fentanyl, octreotide and calcium gluconate drip. Levophed was started for a brief moment when patient was hypotensive and not responding to blood however it was discontinued as patient's pressure nicely increased. Will speak to EMS and have them start Levophed with a very low threshold. This patient has been too unstable to obtain imaging of head, chest, abdomen therefore imaging was not obtained. I did review a chest x-ray which shows adequate placement of ET tube. I had no issues with the intubation. Large amount of blood noted in mouth. Time: 09:03 Reevaluation #3: Called patients son Giorgio who is aware of the situation. Answered all questions. Time: 09:13 Medications Administered Generic Name Dose Route Start Last Admin Trade Name Freq PRN Reason Stop Dose Admin Octreotide Acetate 500 mcg/ 501 mls @ 50.1 mls/hr 03/14/24 08:15 03/14/24 09:12 Sodium Chloride IVCONT 50 mcg/hr .Q10H LOYD 50.1 mls/hr Administration 50 MCG/HR Calcium Gluconate 1 gm in 50 mls @ 50 mls/hr 03/14/24 08:49 03/14/24 09:17 Calcium Gluconate IV 03/14/24 09:48 50 mls/hr ONCE ONE Administration Discontinued Medications Generic Name Dose Route Start Last Admin Trade Name Freq PRN Reason Stop Dose Admin Phytonadione 10 mg/ Sodium 51 mls @ 51 mls/hr 03/14/24 07:58 03/14/24 08:53 Chloride IV 03/14/24 08:57 51 mls/hr ONCE ONE Administration Piperacillin Sod/Tazobactam 50 mls @ 100 mls/hr 03/14/24 08:48 03/14/24 09:13 Sod 3.375 gm/ Sodium Chloride IV 03/14/24 09:17 100 mls/hr ONCE ONE Administration Ketamine HCl 70 mg 03/14/24 09:05 03/14/24 08:22 Ketamine Hcl/Ns 50 Mg/5 Ml Syringe IVPUSH 03/14/24 09:06 70 mg ONCE ONE Administration Octreotide Acetate 50 mcg 03/14/24 07:56 03/14/24 08:11 Octreotide Acetate 100 Mcg/Ml Ampul IVPUSH 03/14/24 07:57 50 mcg ONCE ONE Administration Ondansetron HCl 4 mg 03/14/24 07:56 03/14/24 08:12 Ondansetron Hcl 4 Mg/2 Ml Vial IVPUSH 03/14/24 07:57 4 mg ONCE ONE Administration Pantoprazole Sodium 40 mg 03/14/24 07:56 03/14/24 08:12 Pantoprazole Sodium 40 Mg/10 Ml Vial IVPUSH 03/14/24 07:57 40 mg ONCE ONE Administration Rocuronium [place] 50 mg 03/14/24 09:05 03/14/24 08:22 Rocuronium [place] 50 Mg/5 Ml Vial IVPUSH 03/14/24 09:06 50 mg ONCE ONE Administration Sodium Bicarbonate 50 meq 03/14/24 08:50 03/14/24 08:58 Sodium Bicarbonate 8.4% 50 Meq/50 Ml Syringe IVPUSH 03/14/24 08:51 50 meq ONCE ONE Administration Medical Decision Making Medical Decision Making MDM Narrative: 73-year-old female presents with suspected upper and lower GI bleeding. Physical exam patient oriented only to person, Distended abdomen, diffusely tender. Normoactive bowel sounds. On exam there is active upper GI hemorrhaging, I also suspect lower GI bleed. Concerns for hemodynamic instability, threat to airway. Will rule out metabolic derangements at this time. I do suspect esophageal varices. Immediately on arrival massive transfusion protocol as well as rapid sequence intubation done as patient is hemodynamically unstable. She is hypotensive, tachycardic with active bleeding. Due to history of esophageal varices octreotide ordered as a 1 time push as well as a drip. informed no ICU beds available here Differential Diagnosis Differential Diagnoses: The differential diagnosis associated with the presentation includes (On exam there is active upper GI hemorrhaging, I also suspect lower GI bleed. Concerns for hemodynamic instability, threat to airway. Will rule out metabolic derangements at this time. I do suspect esophageal varices.) Admission/Observation Consideration of admission/observation: Escalation of care including admission/observation considered (Likely ICU admission) Consult Healthcare Provider Management of the patient was discussed with: [facility] ([facility], [facility]) Lab Data MDM Lab Attestation statement: I reviewed the patient's lab results. 03/14/24 08:07 03/14/24 08:07 Labs: Lab Results 03/14/24 03/14/24 03/14/24 Range/Units 08:06 08:07 08:07 WBC 12.1 H (4.8-10.8) X10*3/uL RBC 2.94 L D (4.20-5.50) X10*6/uL Hgb 8.3 L D (12.0-16.0) g/dl Hct 25.6 L D (37.0-47.0) % MCV 87.1 (80.0-98.0) fL MCH 28.2 (27.0-33.0) pg MCHC 32.4 (31.0-35.0) g/dl RDW 17.2 H (11.0-16.0) % Plt Count 209 D (160-400) X10*3/uL MPV 11.3 (9.4-12.3) fL Immature Gran % (Auto) 0.7 H (0.0-0.4) % Neut % (Auto) 85.5 H (45-73) % Lymph % (Auto) 8.2 L (20-40) % Dickinson % (Auto) 5.5 (2-11) % Eos % (Auto) 0.0 (0-4) % Baso % (Auto) 0.1 (0-2) % Lymph # (Auto) 1.0 L (1.2-4.9) X10*3/uL Dickinson # (Auto) 0.7 (0.1-1.2) X10*3/uL Eos # (Auto) 0.0 (0.0-0.4) X10*3/uL Baso # (Auto) 0.0 (0.0-0.2) X10*3/uL Abs Immat Gran (auto) 0.09 H (0.00-0.03) X10*3/uL Absolute Neuts (auto) 10.3 H (2.0-8.3) x10*3/uL Absolute Nucleated RBC 0.000 (0.0-0.012) X10*3/uL Nucleated RBC % (auto) 0.0 (0.0-0.2) /100WBC Hold Purple Top SEE NOTE SEE NOTE PT 18.8 H D (10.9-12.4) SEC INR 1.6 H (0.9-1.1) Fibrinogen 209 L (259-690) MG/DL Sodium 136 (135-145) mmol/L Potassium 6.7 H* D (3.3-5.1) mmol/L Chloride 104 (96-108) mmol/L Carbon Dioxide 8 L* D (22-29) mmol/L Anion Gap 31 H (12-20) BUN > 125 H (9-16) mg/dL Creatinine 4.38 H* (0.5-1.4) mg/dL Estim Creat Clear Calc 8.3 Estimated GFR 10 POC Glucose (60-115) mg/dL Random Glucose 144 H (60-115) mg/dL Lactic Acid 12.4 H* (0.5-2.0) mmol/L Calcium 9.4 D (8.4-10.2) mg/dL Magnesium 3.6 H* (1.6-2.6) mg/dL Total Bilirubin 3.6 H (0.0-1.0) mg/dL AST 484 H (5-31) U/L ALT 173 H (0-31) U/L Alkaline Phosphatase 185 H (39-117) U/L Total Protein 6.7 (6.5-8.0) g/dL Albumin 3.9 (3.5-5.0) g/dL COVID-19 (ROSALINA) Negative (Negative) COVID-19 Clin Com See Note Blood Type A Negative Antibody Screen NEGATIVE Crossmatch See Detail 03/14/24 Range/Units 08:14 WBC (4.8-10.8) X10*3/uL RBC (4.20-5.50) X10*6/uL Hgb (12.0-16.0) g/dl Hct (37.0-47.0) % MCV (80.0-98.0) fL MCH (27.0-33.0) pg MCHC (31.0-35.0) g/dl RDW (11.0-16.0) % Plt Count (160-400) X10*3/uL MPV (9.4-12.3) fL Immature Gran % (Auto) (0.0-0.4) % Neut % (Auto) (45-73) % Lymph % (Auto) (20-40) % Dickinson % (Auto) (2-11) % Eos % (Auto) (0-4) % Baso % (Auto) (0-2) % Lymph # (Auto) (1.2-4.9) X10*3/uL Dickinson # (Auto) (0.1-1.2) X10*3/uL Eos # (Auto) (0.0-0.4) X10*3/uL Baso # (Auto) (0.0-0.2) X10*3/uL Abs Immat Gran (auto) (0.00-0.03) X10*3/uL Absolute Neuts (auto) (2.0-8.3) x10*3/uL Absolute Nucleated RBC (0.0-0.012) X10*3/uL Nucleated RBC % (auto) (0.0-0.2) /100WBC Hold Purple Top PT (10.9-12.4) SEC INR (0.9-1.1) Fibrinogen (259-690) MG/DL Sodium (135-145) mmol/L Potassium (3.3-5.1) mmol/L Chloride (96-108) mmol/L Carbon Dioxide (22-29) mmol/L Anion Gap (12-20) BUN (9-16) mg/dL Creatinine (0.5-1.4) mg/dL Estim Creat Clear Calc Estimated GFR POC Glucose 94 (60-115) mg/dL Random Glucose (60-115) mg/dL Lactic Acid (0.5-2.0) mmol/L Calcium (8.4-10.2) mg/dL Magnesium (1.6-2.6) mg/dL Total Bilirubin (0.0-1.0) mg/dL AST (5-31) U/L ALT (0-31) U/L Alkaline Phosphatase (39-117) U/L Total Protein (6.5-8.0) g/dL Albumin (3.5-5.0) g/dL COVID-19 (ROSALINA) (Negative) COVID-19 Clin Com Blood Type Antibody Screen Crossmatch Independent Interpretation I performed an independent interpretation of an: CT Scan Radiology Impression Discussion of test interpretation with radiology: I have reviewed the radiologist's reading. Independent Historian Clinical information obtained from an independent historian. History obtained from or confirmed by: EMS External Record Review External record reviewed: Inpatient record, Office record, Outpatient record, Prior outpatient labs, Prior outpatient radiology, Primary care record and Outside ED record Prescription Management I considered prescription management with: Antibiotic Procedures Intubation Intubation Type:: Emergency Endotracheal Intubation Intubation Date:: 03/14/24 Intubation Time:: 08:00 Time out performed: Yes sedative: Ketamine paralytic: Rocuronium Mg Given: 50 Laryngoscope: fiber optic video scope Assist Device Used: fiber optic device ET Tube Size: 7 ET Tube Uncuffed: No Tube Secured Depth (cm): 25 Tube Secured Location: lips Tube Placement Confirmation: visualized tube passing through cords, equal breath sounds bilaterally, no breath sounds over epigastrium and confirmation by capnometry Patient Tolerated Procedure: well Intubation Complications: none Critical Care Time Critical Care Time Critical Care Time: Yes Total Critical Care Time: 60 Attestation: I attest to this time spent taking care of the patient, obtaining history, physical, reviewing labs, imaging, treatment of patients condition +/- specialist/hospitalist consult Discharge Plan Discharge Clinical Impression: Hepatitis C, chronic, Acute upper GI hemorrhage, Acute lower GI bleeding, Ascites, Pneumonia Patient Disposition: Xfer [facility] Transfer Details: Dr. Ervin Tarango ED Prescriptions: No Action lactulose 10 gram/15 mL (15 mL) solution 10 g PO DAILY 30 Days Qty: 450 2RF (DME) blood pressure test kit-large Kit See Rx Instructions .ROUTE DIRECTED Qty: 1 Rx Instructions: As directed Print Language: Latvian
[2024-03-14 08:47] VITALS: BP 99/42; PULSE 103; TEMP 34.7; O2SAT 100
[2024-03-14 08:52] LABS: Alanine Aminotransferase 173 U/L (0-31); Albumin Level 3.9 g/dL (3.5-5.0); Anion Gap 31 (12-20); Aspartate Amino Transferase 484 U/L (5-31); Bilirubin Total 3.6 mg/dL (0.0-1.0); Blood Urea Nitrogen > 125 mg/dL (9-16); Calcium 9.4 mg/dL (8.4-10.2); Carbon Dioxide 8 mmol/L (22-29); Chloride 104 mmol/L (96-108); Creatinine Clr Calc Pharmacy 8.3; Estimated Glomerular Filt Rate 10; Glucose Random 144 mg/dL (60-115); Magnesium 3.6 mg/dL (1.6-2.6); Potassium 6.7 mmol/L (3.3-5.1); Sodium 136 mmol/L (135-145); Total Protein 6.7 g/dL (6.5-8.0)
[2024-03-14] MEDS: Phytonadione (Vit K1) 10 MG in 0.9 % Sodium Chloride 50 ML 51 MG IV (08:53)
[2024-03-14] MEDS: Sodium Bicarbonate 8.4% 50 MEQ/50 ML SYRINGE IVPUSH (08:58)
[2024-03-14 09:02] LABS: Lactic Acid 12.4 mmol/L (0.5-2.0)
[2024-03-14] MEDS: Octreotide Acetate 500 MCG in 0.9 % Sodium Chloride 500 ML 50.1 MCG IVCONT (09:12)
[2024-03-14] MEDS: Piperacillin Sodium/Tazobactam 3.375 GM in 0.9 % Sodium Chloride 50 ML IV (09:13)
[2024-03-14] MEDS: Calcium Gluconate/NaCl,Iso-Osm 1 GM/50 ML PLAST..BAG IV (09:17)
[2024-03-14 09:28] VITALS: BP 187/96; PULSE 101; RESP 18; TEMP 35.3; O2SAT 100
--- NOTE | 2024-03-14 10:15 | PC.NURSE ---
Patient came in via ambulance EMS states bed was full of brown blood. Patient has a hx of esophageal varices. Patient was not a good historian. Patient was covered in dried blood. Patient started to vomit moderate amount of dark blood emesis. Lilliam ADAMSON ordered MTP Multiple iv's placed 18g left AC, 20g Right AC, Patient getting prepped for intubation given ketamine 70mg and LINDSEY 50mg. Patient intubated by Lilliam ADAMSON at 0824am 7.0- 25 at the lip. vitals prior to intubation. 107/25, 16 rr, hr 103, 83% on room air. per respiratory peep 5, rr- 18, 100% MTP ordered given 1: RBC started at 0826 and ended at 0829 unit number- [id number] 2: RBC started at 0827 and ended at 0831 unit number- [id number] 3: FFP started at 0830 and ended at 0838 unit number- [id number] 4: PLT started at 0836 and ended at 0910am unit number- [id number] 5:RBC started at 0839 and ended at 0842 am unit number- [id number] 6: FFP started at 0843a and ended at 0902am unit number- [id number] 7: RBC started at 0856am and ended at 0901am unit [id number] vitals signs printed and placed in chart. K-6.7 CR-4.38 temp sensing rand placed at 0938am EMS here to transfer to [facility] ER. Report called to JUNE.
[2024-03-14 11:00] LABS: Reflex Lactate? Lactic Acid Added
[2024-03-14 12:15] VITALS: BP 200/105; PULSE 107; RESP 18; TEMP 35.2; O2SAT 100
--- NOTE | 2024-03-21 10:06 | PC.NURSE ---
The patient was called several times yesterday for her appointment today. He son's number was disconnected and the home phone rang and then stated that the voice message system was not set up. Multiple attempts were also made today with the same results. I spoke with Saira in the GI office to see if there was another number to call and she verbalized that there was not. The office was informed that she was a no show. The patient was given a discharge instruction sheet with the arrival time for today's appointment written on it.
== END 2024-03-14 12:19 | disposition short-term general hospital (02) ==
PROVIDERS: Physician Assistant; Emergency Provider Emergency Medicine Emergency Medical Services; PCP Internal Medicine
DX: B18.2 Chronic viral hepatitis C (principal); K92.2 Gastrointestinal hemorrhage, unspecified; K71.51 Toxic liver disease with chronic active hepatitis with ascites; J18.9 Pneumonia, unspecified organism; R41.82 Altered mental status, unspecified; Z11.52 Encounter for screening for COVID-19; I10 Essential (primary) hypertension; K74.69 Other cirrhosis of liver; D50.9 Iron deficiency anemia, unspecified; F41.9 Anxiety disorder, unspecified; Z87.891 Personal history of nicotine dependence
CPT/HCPCS: 31500; 36415; 36430; 71045; 80053; 82947; 83605; 83735; 85025; 85384; 85610; 86850; 86900; 86901; 86920; 87040; 87635; 94002; 96374; 96375; 99285; J0613; J2354; J2405; J2470; J2543; J3430; P9016; P9017; P9073